=== PATIENT | male | born 1945 | race Caucasian/White ===

== ENCOUNTER 2020-02-20 14:48 | Observation (INO) | payer OTHER, MEDICARE ==
[2020-02-20] MEDS ORDERED: PROMETHAZINE INJ 25 MG/ML AMP ONE (15:42)
[2020-02-20 15:43] LABS: Absolute Lymphocytes (CBC) 1.3 K/uL (0.7-4.9); Basophils % 0.5 % (0-1.3); Hematocrit 42.9 % (39.6-49.0); Lymphocytes % 12.2 % (15.3-44.8); MPV 8.6 fL (7.6-11.3); RBC Red Blood Cell Count 4.91 M/uL (4.33-5.43)
[2020-02-20] MEDS ORDERED: FENTANYL CITR 100 MCG/2 ML ONE (15:43)
[2020-02-20] MEDS ORDERED: NA CHLORIDE 0.9% 1,000 ML ONE (15:43)
[2020-02-20 15:44] LABS: Protime INR 1.07
[2020-02-20 16:05] LABS: ALT/SGPT 27 U/L (12-78); AST/SGOT 25 U/L (15-37); Albumin 3.9 g/dL (3.4-5.0); Alkaline Phosphatase 78 U/L (45-117); BUN Blood Urea Nitrogen 20 mg/dL (7-18); Bicarbonate 26 mmol/L (21-32); Bilirubin Direct 0.1 mg/dL (0-0.2); Bilirubin Total 0.4 mg/dL (0.2-1.0); Glucose Level 123 mg/dL (74-106); Magnesium 2.3 mg/dL (1.8-2.4); NT PRO-BNP 63 pg/mL (<125); Potassium 3.6 mmol/L (3.5-5.1); Protein, Total 7.2 g/dL (6.4-8.2); Sodium Level 144 mmol/L (136-145); Troponin (Emerg Dept Use Only) < 0.02 ng/mL (0.0-0.045)
--- NOTE | 2020-02-20 17:19 | RAD REPORT ---
EXAM DESCRIPTION: CT - Abdomen Pelvis W Contrast - 02/20/2020 4:38 pm CLINICAL HISTORY: Abdominal pain COMPARISON: none. TECHNIQUE: Computed axial tomography of the abdomen pelvis was obtained. 100 cc Isovue-300 was admin istered intravenously. Oral contrast was not requested which limits evaluation of bowel. All CT scans are performed using dose optimization technique as appropriate and may include automated exposure control or mA/KV adjustment according to patient size. FINDINGS: Mild fatty liver. Multiple gallstones. Gallbladder wall is not thickened. Spleen, pancreas, adrenal appear unremarkable. 2 centimeter low to intermediate density mass extends off of left kidney. Hounsfield units 39 Small right renal parapelvic cyst Tiny left renal calculus. No hydronephrosis. Small parapelvic cysts. Normal appendix Diverticula stem from the colon without evidence of diverticulitis. Mild dilatation of jejunum and portion of the ileum. The distal ileum is decompressed Small inguinal hernias contain fat IMPRESSION: These findings may indicate a partial mechanical small bowel obstruction or enteritis A 2 centimeter left renal mass may represent benign complex cyst. Cystic neoplasm has a similar appea lisa. Nonemergent CT scan without IV contrast is recommended. This can be compared with the current examination to determine if there is abnormal enhancement to suggest neoplasm
--- NOTE | 2020-02-20 17:19 | RAD REPORT ---
EXAM DESCRIPTION: Vane Single View02/20/2020 3:33 pm CLINICAL HISTORY: Chest pain COMPARISON: none FINDINGS: The lungs appear clear of acute infiltrate. The heart is mildly enlarged IMPRESSION: No acute abnormalities displayed
--- NOTE | 2020-02-20 17:51 | ER ---
Nurse's Notes [facility] Name: Evens Freitas Sr Age: 74 yrs Sex: Male : 1945 Arrival Date: 02/20/2020 Time: 14:51 Bed 14 Private MD: Diagnosis: Hyperactive bowel sounds;Partial mechanical bowel obstruction Presentation: 02/19 15:00 Chief complaint: LUQ pain and nausea x 2 days. Pain is worse after meals. Last BM was hb today. Coronavirus screen: Patient denies fever greater than 100.4F, cough, shortness of breath, or difficulty breathing. Proceed with normal triage process. Ebola Screen: No symptoms or risks identified at this time. Initial Sepsis Screen: Does the patient meet any 2 criteria? No. Patient's initial sepsis screen is negative. Does the patient have a suspected source of infection? No. Patient's initial sepsis screen is negative. Risk Assessment: Do you want to hurt yourself or someone else? Patient reports no desire to harm self or others. 15:00 Method Of Arrival: Wheelchair hb 15:00 Acuity: REKHA 3 hb 15:58 Onset of symptoms was February 20, 2020. ll1 Historical: - Allergies: 15:02 No Known Allergies; hb - Home Meds: 15:02 candesartan 32 mg oral tab [Active]; aspirin 81 mg Oral chew 1 tab once daily [Active]; hb - PMHx: 15:02 Hyperlipidemia; hb - PSHx: 15:03 Hernia repair; hb 15:03 Knee - Right; hb - Immunization history:: Adult Immunizations up to date. - Social history:: Smoking status: Patient denies any tobacco usage or history of. Screenin:57 Abuse screen: Denies threats or abuse. Nutritional screening: No deficits noted. ll1 Tuberculosis screening: No symptoms or risk factors identified. Fall Risk IV access (20 points). Gait- Normal/Bed Rest/Wheelchair (0 pts) Mental Status- Oriented to own ability (0 pts). Total Prieto Fall Scale indicates No Risk (0-24 pts). Assessment: 15:54 General: Appears in no apparent distress. Behavior is calm, cooperative. Pain: Denies ll1 pain. Pain: Denies pain. Complains of pain in abdomen Pain Quality of pain is described as aching, Pain began 2-3 days ago. Is continuous. Neuro: No deficits noted. Cardiovascular: No deficits noted. Respiratory: No deficits noted. GI: Abdomen is round Bowel sounds present X 4 quads. Abd is soft Abdomen is tender to palpation in left upper quadrant Reports upper abdominal pain, cramping, nausea. : No deficits noted. 17:00 Reassessment: No changes from previously documented assessment. Patient and/or family ll1 updated on plan of care and expected duration. Pain level reassessed. Patient is alert, oriented x 3, equal unlabored respirations, skin warm/dry/pink. 18:00 Reassessment: No changes from previously documented assessment. Patient and/or family ll1 updated on plan of care and expected duration. Pain level reassessed. Patient is alert, oriented x 3, equal unlabored respirations, skin warm/dry/pink. 19:00 Reassessment: No changes from previously documented assessment. Patient and/or family ll1 updated on plan of care and expected duration. Pain level reassessed. Patient is alert, oriented x 3, equal unlabored respirations, skin warm/dry/pink. Vital Signs: 15:00 BP 189 / 80; Pulse 51; Resp 16; Temp 98.1; Pulse Ox 96% on R/A; Weight 130.18 kg; hb Height 5 ft. 11 in. (180.34 cm); Pain 10/10; 17:08 BP 161 / 75; Pulse 48; Resp 18; Pulse Ox 95% ; ll1 19:11 BP 152 / 87; Pulse 52; Resp 18; Pulse Ox 96% ; ll1 20:16 BP 152 / 67; Pulse 52; Resp 18; Pulse Ox 96% ; Pain 4/10; ll1 15:00 Body Mass Index 40.03 (130.18 kg, 180.34 cm) hb ED Course: 14:51 Patient arrived in ED. fj1 15:02 Triage completed. hb 15:03 Arm band placed on. hb 15:06 Agustina Craig FNP-C is PHCP. snw 15:06 Emre Rothman MD is Attending Physician. snw 15:34 XRAY Chest (1 view) In Process Unspecified. EDMS 15:34 Olegario Falcon, JOSE DANIEL is Primary Nurse. ll1 15:35 First set of blood cultures drawn. Initial lab(s) drawn, by me, sent to lab. kj1 15:35 Inserted saline lock: 22 gauge in left antecubital area, using aseptic technique. kj1 15:50 Second set of blood cultures drawn. kj1 15:58 Patient has correct armband on for positive identification. Bed in low position. Call [facility] light in reach. Side rails up X 1. 16:[address] via stretcher. nj 16:38 CT completed. Patient tolerated procedure well. Patient moved back from MD. nj 16:38 CT Abd/Pelvis - IV Contrast Only In Process Unspecified. EDMS 17:50 Ankit Hopper MD is Hospitalizing Provider. snw 19:23 PHCP role handed off by Agustina Craig FNP-C rv 19:23 Primary Nurse role handed off by Olegario Falcon, JOSE DANIEL rv 19:23 Olegario Falcon, RN is Primary Nurse. [facility] 20:13 No provider procedures requiring assistance completed. Patient admitted, IV remains in [facility] place. intact. Administered Medications: 15:53 Drug: NS 0.9% 1000 ml Route: IV; Rate: 125 ml/hr; Site: left antecubital; [facility] 19:14 Follow up: IV Status: Completed infusion rv 20:14 Follow up: IV Status: Infusion continued upon admission; IV Intake: 500ml [facility] 15:53 Drug: fentaNYL (PF) 50 mcg Route: IVP; Site: left antecubital; [facility] 17:08 Follow up: Response: No adverse reaction; Pain is decreased; RASS: Alert and Calm (0) [facility] 15:53 Drug: Phenergan 12.5 mg Route: IVP; Site: left antecubital; [facility] 17:07 Follow up: Response: No adverse reaction; RASS: Alert and Calm (0) [facility] 18:06 Drug: Cipro 400 mg Volume: 200 ml; Route: IVPB; Infused Over: 60 mins; Site: left ll1 antecubital; 19:09 Follow up: Response: No adverse reaction; RASS: Alert and Calm (0); IV Status: ll Completed infusion; IV Intake: 200ml 19:35 Drug: fentaNYL (PF) 50 mcg Route: IVP; Site: left antecubital; [facility] 20:04 Follow up: Response: No adverse reaction; Pain is decreased; RASS: Alert and Calm (0) ll1 Intake: 19:09 IV: 200ml; Total: 200ml. ll1 20:14 IV: 500ml; Total: 700ml. ll1 Outcome: 17:51 Decision to Hospitalize by Provider. snw 20:11 Admitted to Med/surg accompanied by tech, via wheelchair, room Room 201, Report called ll1 to [facility] 20:11 Condition: stable 20:11 Instructed on the need for admit. 20:17 Patient left the ED. ll1 Signatures: Dispatcher [employer] EDMS Agustina Craig, BIOMEDICAL SPECIALIST-C BIOMEDICAL SPECIALIST-Csnw Margaret Rios, RN RN Stephane Neff Ronaldo RN RN rv Lisa Myers kj1 Alex Jennings1 Olegario Falcon RN RN ll1 Corrections: (The following items were deleted from the chart) 15:03 15:02 PSHx: None; hb hb 19:24 19:17 No provider procedures requiring assistance completed. rv rv 19:24 19:17 IV discontinued, intact, bleeding controlled, No redness/swelling at site. rv Pressure dressing applied, rv 19:24 19:14 BP 110 / 59; Pulse 71bpm; Resp 17bpm; Pulse Ox 97% RA; Temp 98F; rv rv 19:24 19:17 Condition: good rv rv 19:24 19:17 Discharged to home ambulatory, rv rv 19:24 19:17 Discharge instructions given to patient, Instructed on discharge instructions, rv follow up and referral plans. medication usage, Demonstrated understanding of instructions, follow-up care, medications, Prescriptions given X 4, rv 19:24 19:18 Patient left the ED. rv rv
--- NOTE | 2020-02-20 17:52 | EDPHYS ---
Physician Documentation [facility] Name: Evens Freitas Sr Age: 74 yrs Sex: Male : 1945 Arrival Date: 02/20/2020 Time: 14:51 Bed 14 Private MD: ED Physician Emre Rothman HPI: 02/19 15:29 This 74 yrs old Male presents to ER via Wheelchair with complaints of snw Abdominal Pain. 15:29 The patient presents with abdominal pain in the left upper quadrant, in the left lower snw quadrant. Onset: The symptoms/episode began/occurred suddenly, 2 day(s) ago, and became persistent. The symptoms do not radiate. Associated signs and symptoms: Pertinent positives: nausea. The symptoms are described as constant, steady. Severity of pain: At its worst the pain was severe in the emergency department the pain is unchanged. The patient has not experienced similar symptoms in the past. The patient has not recently seen a physician. sees Dr. Castañeda, no abd surgeries. Historical: - Allergies: 15:02 No Known Allergies; hb - Home Meds: 15:02 candesartan 32 mg oral tab [Active]; aspirin 81 mg Oral chew 1 tab once daily [Active]; hb - PMHx: 15:02 Hyperlipidemia; hb - PSHx: 15:03 Hernia repair; hb 15:03 Knee - Right; hb - Immunization history:: Adult Immunizations up to date. - Social history:: Smoking status: Patient denies any tobacco usage or history of. ROS: 15:26 Constitutional: Negative for fever, chills, and weight loss, Eyes: Negative for injury, snw pain, redness, and discharge, ENT: Negative for injury, pain, and discharge, Neck: Negative for injury, pain, and swelling, Cardiovascular: Negative for chest pain, palpitations, and edema, Respiratory: Negative for shortness of breath, cough, wheezing, and pleuritic chest pain, Back: Negative for injury and pain, : Negative for injury, bleeding, discharge, and swelling, MS/Extremity: Negative for injury and deformity, Skin: Negative for injury, rash, and discoloration, Neuro: Negative for headache, weakness, numbness, tingling, and seizure, Psych: Negative for depression, anxiety, suicide ideation, homicidal ideation, and hallucinations. 15:26 Abdomen/GI: Positive for abdominal pain, nausea, abdominal distension. Exam: 15:13 Constitutional: This is a well developed, well nourished patient who is awake, alert, snw and in no acute distress. Head/Face: Normocephalic, atraumatic. Eyes: Pupils equal round and reactive to light, extra-ocular motions intact. Lids and lashes normal. Conjunctiva and sclera are non-icteric and not injected. Cornea within normal limits. Periorbital areas with no swelling, redness, or edema. ENT: Nares patent. No nasal discharge, no septal abnormalities noted. Tympanic membranes are normal and external auditory canals are clear. Oropharynx with no redness, swelling, or masses, exudates, or evidence of obstruction, uvula midline. Mucous membranes moist. Neck: Trachea midline, no thyromegaly or masses palpated, and no cervical lymphadenopathy. Supple, full range of motion without nuchal rigidity, or vertebral point tenderness. No Meningismus. Chest/axilla: Normal chest wall appearance and motion. Nontender with no deformity. No lesions are appreciated. Cardiovascular: Regular rate and rhythm with a normal S1 and S2. No gallops, murmurs, or rubs. Normal PMI, no JVD. No pulse deficits. Respiratory: Lungs have equal breath sounds bilaterally, clear to auscultation and percussion. No rales, rhonchi or wheezes noted. No increased work of breathing, no retractions or nasal flaring. Abdomen/GI: Soft, tender, with hyperactive bowel sounds. No distension or tympany. No guarding or rebound. left anterior upper and lower abdominal tenderness Back: No spinal tenderness. No costovertebral tenderness. Full range of motion. Skin: Warm, dry with normal turgor. Normal color with no rashes, no lesions, and no evidence of cellulitis. MS/ Extremity: Pulses equal, no cyanosis. Neurovascular intact. Full, normal range of motion. Neuro: Awake and alert, GCS 15, oriented to person, place, time, and situation. Cranial nerves II-XII grossly intact. Motor strength 5/5 in all extremities. Sensory grossly intact. Cerebellar exam normal. Normal gait. Psych: Awake, alert, with orientation to person, place and time. Behavior, mood, and affect are within normal limits. Vital Signs: 15:00 BP 189 / 80; Pulse 51; Resp 16; Temp 98.1; Pulse Ox 96% on R/A; Weight 130.18 kg; hb Height 5 ft. 11 in. (180.34 cm); Pain 10/10; 17:08 BP 161 / 75; Pulse 48; Resp 18; Pulse Ox 95% ; ll1 19:11 BP 152 / 87; Pulse 52; Resp 18; Pulse Ox 96% ; ll1 20:16 BP 152 / 67; Pulse 52; Resp 18; Pulse Ox 96% ; Pain 4/10; ll1 15:00 Body Mass Index 40.03 (130.18 kg, 180.34 cm) hb MDM: 15:06 Patient medically screened. snw 17:48 Data reviewed: vital signs, nurses notes, lab test result(s), radiologic studies. Data snw interpreted: Pulse oximetry: on room air is 95 %. Interpretation: acceptable. Counseling: I had a detailed discussion with the patient and/or guardian regarding: the historical points, exam findings, and any diagnostic results supporting the discharge/admit diagnosis, the presence of at least one elevated blood pressure reading (>120/80) during this emergency department visit, lab results, radiology results, the need for further work-up and treatment in the hospital. Physician consultation: Ankit Hopper MD was called at 17:49, was contacted at 17:49, regarding admission, to the medical/surgical unit. and will see patient shortly. 17:55 Physician consultation: Jb Ling MD was called at 17:56, was contacted at 17:56, snw regarding consult, and will see patient later today, would like medications started, Cipro. 02/19 15:13 Order name: Basic Metabolic Panel; Complete Time: 16:w 02/19 15:13 Order name: CBC with Diff; Complete Time: 15:56 w 02/19 15:13 Order name: LFT's; Complete Time: 16: w 02/19 15:13 Order name: Magnesium; Complete Time: 16:w 02/19 15:13 Order name: NT PRO-BNP; Complete Time: 16:07 [facility] 02/19 15:13 Order name: PT-INR; Complete Time: 15:56 [facility] 02/19 15:13 Order name: Troponin (emerg Dept Use Only); Complete Time: 16:07 [facility] 02/19 15:13 Order name: XRAY Chest (1 view); Complete Time: 17:29 [facility] 02/19 15:13 Order name: Blood Culture Adult (2) [facility] 02/19 19:12 Order name: CBC with Automated Diff [facility] 02/19 19:12 Order name: CBC with Automated Diff [facility] 02/19 19:13 Order name: Comprehensive Metabolic Panel [facility] 02/19 19:13 Order name: Comprehensive Metabolic Panel [facility] 02/19 19:29 Order name: Troponin I [facility] 02/19 15:13 Order name: EKG; Complete Time: 15:19 [facility] 02/19 15:13 Order name: Cardiac monitoring [facility] 02/19 15:13 Order name: EKG - Nurse/Tech; Complete Time: 19:02 [facility] 02/19 15:13 Order name: IV Saline Lock; Complete Time: 19:02 [facility] 02/19 15:13 Order name: Labs collected and sent; Complete Time: 19:02 [facility] 02/19 15:13 Order name: O2 Per Protocol; Complete Time: 19:02 [facility] 02/19 15:13 Order name: O2 Sat Monitoring; Complete Time: 19:02 [facility] 02/19 15:13 Order name: CT Abd/Pelvis - IV Contrast Only; Complete Time: 17:29 [facility] 02/19 19:12 Order name: CONS Pharmacy Consult [facility] 02/19 19:13 Order name: Abdomen 1 View (KUB) [facility] 02/19 19:13 Order name: Abdomen 1 View (KUB) [facility] Administered Medications: 15:53 Drug: NS 0.9% 1000 ml Route: IV; Rate: 125 ml/hr; Site: left antecubital; 1 19:14 Follow up: IV Status: Completed infusion rv 20:14 Follow up: IV Status: Infusion continued upon admission; IV Intake: 500ml ll1 15:53 Drug: fentaNYL (PF) 50 mcg Route: IVP; Site: left antecubital; ll1 17:08 Follow up: Response: No adverse reaction; Pain is decreased; RASS: Alert and Calm (0) ll1 15:53 Drug: Phenergan 12.5 mg Route: IVP; Site: left antecubital; ll1 17:07 Follow up: Response: No adverse reaction; RASS: Alert and Calm (0) ll1 18:06 Drug: Cipro 400 mg Volume: 200 ml; Route: IVPB; Infused Over: 60 mins; Site: left ll1 antecubital; 19:09 Follow up: Response: No adverse reaction; RASS: Alert and Calm (0); IV Status: ll1 Completed infusion; IV Intake: 200ml 19:35 Drug: fentaNYL (PF) 50 mcg Route: IVP; Site: left antecubital; ll1 20:04 Follow up: Response: No adverse reaction; Pain is decreased; RASS: Alert and Calm (0) ll1 Disposition: 02/20 10:11 Co-signature as Attending Physician, Emre Rothman MD. rn Disposition: 02/20/20 17:51 Hospitalization ordered by Ankit Hopper for Observation. Preliminary diagnosis are Hyperactive bowel sounds, Partial mechanical bowel obstruction. - Bed requested for Telemetry/MedSurg (observation). - Status is Observation. ll1 - Condition is Stable. - Problem is new. - Symptoms are unchanged. Signatures: Dispatcher [employer] EDMS Agustina Craig, GUERRERO-C APPARATUS LINEMAN-Csnw Emre Rothman MD MD rn Garcia, Cindy, RN RN cg Margaret Rios RN RN hb Silverio Noe RN RN rv Olegario Falcon RN RN 1 Corrections: (The following items were deleted from the chart) 02/19 15:03 15:02 PSHx: None; hb hb 19:18 17:51 Hospitalization Ordered by Ankit Hopper MD for Observation. Preliminary rv diagnosis is Hyperactive bowel sounds; Partial mechanical bowel obstruction. Bed requested for Telemetry/MedSurg (observation). Status is Observation. Condition is Stable. Problem is new. Symptoms are unchanged. snw 19:37 19:18 02/20/2020 17:51 Hospitalization Ordered by Ankit Hopper MD for Observation. cg Preliminary diagnosis is Hyperactive bowel sounds; Partial mechanical bowel obstruction. Bed requested for Telemetry/MedSurg (observation). Status is Observation. Condition is Stable. Problem is new. Symptoms are unchanged. rv 20:17 19:37 02/20/2020 17:51 Hospitalization Ordered by Ankit Hopper MD for Observation. ll1 Preliminary diagnosis is Hyperactive bowel sounds; Partial mechanical bowel obstruction. Bed requested for Telemetry/MedSurg (observation). Status is Observation. Condition is Stable. Problem is new. Symptoms are unchanged. cg
--- NOTE | 2020-02-20 18:02 | P.HP ---
Certification for Inpatient Patient admitted to: Observation With expected LOS: <2 Midnights Practitioner: I am a practitioner with admitting privileges, knowledge of patient current condition, hospital course, and medical plan of care. Services: Services provided to patient in accordance with Admission requirements found in Title 42 Section 412.3 of the Code of Federal Regulations Patient History Date of Service: 02/20/20 Reason for admission: Abdominal pain History of Present Illness: Mr. Freitas is 74 year old male with a history of hypertension who presented to the ER with complaints of left upper quadrant pain started 2 days ago. Pain has been progressive, associated with nausea without any emesis. Pain worsens with oral intake and improves with medications. Pain is 5/5, nonradiating and described as a cramping/ colicky pain. In an attempt to curb his pain, he took laxatives and then had diarrhea afterwards. He has continued to pass flatus. He denies any fever or chills. He is unable to associate pain onset with food intake. - Past Medical/Surgical History -: Hypertension -: Hernia Review of Systems 10-point ROS is otherwise unremarkable Gastrointestinal: Nausea, Abdominal Pain, Distention Physical Examination - Vital Signs Temperature: 98.1 F Blood Pressure: 189/80 Pulse: 51 Respirations: 16 Pulse Ox (%): 96 - Physical Exam General: Alert, In no apparent distress HEENT: Atraumatic, PERRLA, Mucous membr. moist/pink, EOMI, Sclerae nonicteric Neck: Supple, 2+ carotid pulse no bruit, No LAD, Without JVD or thyroid abnormality Respiratory: Clear to auscultation bilaterally, Normal air movement Cardiovascular: Normal S1 S2, Other (Bradycardia) Gastrointestinal: Normal bowel sounds, No rebound, No guarding, Distended, Tenderness (LUQ) Musculoskeletal: No tenderness Integumentary: No rashes Neurological: Normal gait, Normal speech, Normal strength at 5/5 x4 extr, Normal tone, Normal affect Lymphatics: No axilla or inguinal lymphadenopathy - Studies Laboratory Data (last 24 hrs) 02/20/20 15:28: PT 12.6 H, INR 1.07 02/20/20 15:28: WBC 11.0 H, Hgb 14.3, Hct 42.9, Plt Count 239 02/20/20 15:28: Sodium 144, Potassium 3.6, BUN 20 H, Creatinine 0.90, Glucose 123 H, Magnesium 2.3, Total Bilirubin 0.4, AST 25, ALT 27, Alkaline Phosphatase 78 Assessment and Plan - Advance Directives Does patient have a Living Will: No Does patient have a Durable POA for Healthcare: No - Code Status/Comfort Care Code Status Assessed: Yes Code Status: Full Code Physician Review Additional Text: Mr. Freitas is 74y/o male pw abdominal pain, cw partial SBO. #Partial small-bowel obstruction-possible mechanical versus enteritis. Patient with a prior history of hernia repair. -patient will be maintained on clear liquid diet, pain control and IV fluid. -initiated with antibiotics. Leukocytosis. -KUB in a.m. for further evaluation. #Bradycardia-EKG. Possible vasovagal. -cardiac monitoring. -avoid chronotropic agent. -echocardiogram. Troponin x1 negative, will trend. -Atropin at bedside. -will consider heavy duty diesel mechanic/EP consult. # hypertension-blood pressure is elevated, probably related to pain. -IV hydralazine p.r.n.. -will initiate oral antihypertensive once appropriate. # obesity-weight loss strongly advised. # hyperglycemia-denies any prior history of diabetes mellitus. Check hemoglobin A1c to rule out. DVT prophylaxis-Lovenox Patient is full code Disposition-observation admission.
[2020-02-20] MEDS ORDERED: CIPROFLOXACIN 400mg IV 400 MG/200 ML BAG IV ONE (18:05)
[2020-02-20] MEDS ORDERED: MORPHINE 2 MG/ML SYR IV PRN (19:08)
[2020-02-20] MEDS ORDERED: ONDANSETRON 4 MG/2 ML VIAL IV PRN (19:08)
[2020-02-20] MEDS ORDERED: HYDRALAZINE HCL 20 MG/ML VIAL IV PRN (19:10)
[2020-02-20 20:39] VITALS: BMI 40.6
[2020-02-20] MEDS: NA CHLORIDE 0.9% 1,000 ML IV SCH (20:53)
[2020-02-21] MEDS: metroNIDAZOLE 500 MG TABLET PO SCH ×4 (00:15→18:51)
[2020-02-21] MEDS: NA CHLORIDE 0.9% 1,000 ML IV SCH ×3 (00:16→16:28)
[2020-02-21 05:45] LABS: Hematocrit 39.9 % (39.6-49.0); MPV 8.5 fL (7.6-11.3); RBC Red Blood Cell Count 4.53 M/uL (4.33-5.43)
[2020-02-21 05:46] LABS: Absolute Lymphocytes (CBC) 1.8 K/uL (0.7-4.9); Basophils % 0.5 % (0-1.3)
[2020-02-21 06:00] LABS: ALT/SGPT 23 U/L (12-78); AST/SGOT 21 U/L (15-37); Albumin 3.3 g/dL (3.4-5.0); Alkaline Phosphatase 66 U/L (45-117); BUN Blood Urea Nitrogen 16 mg/dL (7-18); Bicarbonate 26 mmol/L (21-32); Bilirubin Total 0.9 mg/dL (0.2-1.0); Glucose Level 100 mg/dL (74-106); Potassium 3.7 mmol/L (3.5-5.1); Protein, Total 6.5 g/dL (6.4-8.2); Sodium Level 141 mmol/L (136-145)
--- NOTE | 2020-02-21 06:00 | RAD REPORT ---
EXAM DESCRIPTION: RAD - Abdomen 1 View (KUB) - 02/21/2020 5:52 am CLINICAL HISTORY: Abdomen pain. FINDINGS: Mild dilatation of small bowel unchanged from the prior CAT scan. Air is present within po rtions of the colon. This probably represents an enteritis. However, a partial small bowel obstructio n can also have similar appearance
[2020-02-21] MEDS: CIPROFLOXACIN 400mg IV 400 MG/200 ML BAG IV SCH ×2 (08:09→21:30)
[2020-02-21] MEDS ORDERED: hydroCHLOROthiazide 25 MG TAB PO SCH (09:00)
[2020-02-21] MEDS ORDERED: VALSARTAN 160 MG TAB PO SCH (09:00)
[2020-02-21] MEDS: VALSARTAN 160 MG TAB PO SCH (09:00)
--- NOTE | 2020-02-21 10:58 | EKG ---
Test Date: 2020-02-20 Test Time: 17:16:41 Plc Controls Engineer: DOTTIE MEASUREMENT RESULTS: Intervals: Rate: 44 UT: 182 QRSD: 94 QT: 412 QTc: 352 Jack: P: 29 UT: 182 QRS: -3 T: -10 INTERPRETIVE STATEMENTS: Marked sinus bradycardia Inferior infarct, age undetermined Abnormal ECG Compared to ECG 10/18/2006 08:49:21 Myocardial infarct finding now present Electronically Signed On 02-21-20 10:56:14 CDT by Abner Cedillo
--- NOTE | 2020-02-21 12:08 | P.PN ---
Subjective Date of Service: 02/21/20 Chief Complaint: Abdominal pain Subjective: Improving Pain is improving. He is however concerned about having gallstones due to family history of cholecystitis. Physical Examination - Vital Signs Temperature: 97 F Blood Pressure: 146/67 Pulse: 48 Respirations: 20 Pulse Ox (%): 95 - Physical Exam General: Alert, In no apparent distress HEENT: Atraumatic, PERRLA, EOMI Neck: Supple, JVD not distended Respiratory: Clear to auscultation bilaterally, Normal air movement Cardiovascular: Normal S1 S2, Irregular heart rate/rhythm Gastrointestinal: Normal bowel sounds, No rebound, No guarding, Distended, Tenderness (LUQ. No Tenderness on RUQ and murphys is neg.) Musculoskeletal: No tenderness Integumentary: No rashes Neurological: Normal speech, Normal tone, Normal affect Lymphatics: No axilla or inguinal lymphadenopathy - Studies Laboratory Data (last 24 hrs) 02/20/20 15:28: PT 12.6 H, INR 1.07 02/20/20 15:28: WBC 11.0 H, Hgb 14.3, Hct 42.9, Plt Count 239 02/20/20 15:28: Sodium 144, Potassium 3.6, BUN 20 H, Creatinine 0.90, Glucose 123 H, Magnesium 2.3, Total Bilirubin 0.4, AST 25, ALT 27, Alkaline Phosphatase 78 Assessment & Plan Physician Review Additional Text: Mr. Freitas is 74y/o male pw abdominal pain, cw partial SBO. #Partial small-bowel obstruction-possible mechanical versus enteritis. Patient with a prior history of hernia repair. -Pain control and IV fluid. Tolerating clear liquid diet, will attempt full liquid diet. -continue antibiotics. Leukocytosis resolved -KUB with persistent finding; however patient is clinicaly improved. Had 3 BM overnight. -HIDA scan ordered #Renal mass- 2 cm L renal complex mass. Incidental finding on CT - cannot rule out cyst; however will consult urologist. #Bradycardia-EKG. Asymptomatic. cardiac monitoring. -avoid chronotropic agent. -echocardiogram. serial troponin negative -consult cardio for recommendation. #Hypertension-blood pressure is elevated, probably related to pain. -IV hydralazine p.r.n. -resumed oral antihypertensive. # obesity-weight loss strongly advised. # hyperglycemia-denies any prior history of diabetes mellitus. ruled out diabetes. DVT prophylaxis-Lovenox Patient is full code Disposition-pending clinical improvement
--- NOTE | 2020-02-21 12:48 | ECHO ---
HEIGHT: 5 ft 11 in WEIGHT: 291 lb 0 oz DATE OF STUDY: 02/21/[address]: Ankit Hopper 2-DIMENSIONAL: YES M.MODE: YES DOPPLER: YES COLOR FLOW: YES TDS: NO PORTABLE: NO DEFINITY: NO BUBBLE STUDY: NO DIAGNOSIS: BRADYCARDIA CARDIAC HISTORY: CATHERIZATION: NO SURGERY: NO PROSTHETIC VALVE: NO PACEMAKER: NO MEASUREMENTS (cm) DIASTOLIC (NORMALS) SYSTOLIC (NORMALS) IVSd 1.3 (0.6-1.2) LA Diam 3.6 (1.9-4.0) LVEF 76% LVIDd 4.5 (3.5-5.7) LVIDs 2.5 (2.0-3.5) %FS 45% LVPWd 1.3 (0.6-1.2) Ao Diam 3.1 (2.0-3.7) 2 DIMENSIONAL ASSESSMENT: RIGHT ATRIUM: NORMAL LEFT ATRIUM: NORMAL RIGHT VENTRICLE: NORMAL LEFT VENTRICLE: LEFT VENTRICULAR HYPERTROPHY TRICUSPID VALVE: NORMAL MITRAL VALVE: NORMAL PULMONIC VALVE: NORMAL AORTIC VALVE: NORMAL PERICARDIAL EFFUSION: NONE AORTIC ROOT: NORMAL LEFT VENTRICULAR WALL MOTION: NORMAL. DOPPLER/COLOR FLOW: NORMAL. COMMENTS: MILD LEFT VENTRICULAR HYPERTROPHY. NORMAL EJECTION FRACTION. NO WALL MOTION ABNORMALITY. NO EFFUSION. TECHNOLOGIST: WILLIAMS EM
--- NOTE | 2020-02-21 15:11 | RAD REPORT ---
EXAM DESCRIPTION: NM - Hepatobiliary System W/ Ph - 02/21/2020 3:03 pm CLINICAL HISTORY: multiple Gallstone Abdominal pain COMPARISON: No comparisons TECHNIQUE: The patient was administered 6.5 mCi Tc99m Choletec. Imaging of the right upper quadrant was performed initially for up to 60 minutes. Gallbladder ejection fraction determination was then performed utilizing synthetic 2.6 mgm CCK over a slow 30 minute infusion. FINDINGS: Normal hepatic uptake and excretion with appropriate clearance of background blood pool ac tivity. Normal visualization of biliary and small bowel activity. Gallbladder visualizes within normal time limits. The calculated ejection fraction is 68% (normal gre ater than 35%). 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 No delay in visualization of the gallb ladder, biliary tree, or duodenum. Ejection fraction is 68% (normal greater than 35%). Subjective patient pain assessment as detailed above.
--- NOTE | 2020-02-21 21:36 | CON ---
Reason For Consult: Partial small-bowel obstruction. History Of Present Illness: This is a case of a 74-year-old male who comes to us complaining of abdo geoff pain and distention for about 2 days in duration. He denies any trauma. Denies any dysuria, h ematuria, hematochezia, or melena. He states his pain is crampy in nature, mainly on the lower abdom en. He denies prior episode. Once again denies any recent traveling out of the country and denies a [place] family member sick at home. Allergies: NONE. Medications: Reviewed including aspirin. Medical Problems: Hyperlipidemia. Past Surgical History: Hernia repair and knee surgery. Review of Systems: 10 points otherwise unremarkable. Physical Examination: General: Patient is awake, alert. HEENT: Pupils are equal and reactive, anicteric. Neck: Supple. Chest: Clear. Abdomen: Softly distended. No guarding or rebound. No peritoneal signs. Mild tenderness generaliz ed, mainly in the lower abdomen. Rectal: Deferred. Extremities: Good capillary refill. Laboratory Data: Blood work shows a WBC count of 11 with hemoglobin of 14, platelets of 239. INR is 1.07 and chloride is 111. A CAT scan of abdomen and pelvis reviewed by Dr. Maher shows a partial mechanical small-bowel obstruction versus enteritis. A HIDA scan shows ejection fraction of 68% on the gallbladder, and KUB from this morning shows mild dilatation of the small bowel, although apparen tly maybe it is partial or maybe just enteritis. Assessment: This is a 74-year-old patient who came today for 2 days with abdominal pain. Today, he feels better. No nausea, no vomiting today. Abdomen is soft. He is starting to eat a clear liquid diet. He has bowel movement too. Plan: From a surgical standpoint, no plan to take this patient to surgery today. We will give a tri al of diet. Patient is passing gas and also had a bowel movement. If he improves clinically, then jennifer olivares can be discharged home after he tolerates a normal diet and then follow up in our office and the [place] stroenterologist. If he does not tolerate diet, then we will keep him n.p.o. We might have to do sm all-bowel series and corroborate if he has small-bowel obstruction. He was advised the importance of talking to his repairer and checker again to see the proper timing of colonoscopy. VENESSA/UBALDO Voice ID: [id number] Report ID: [id number]
[2020-02-22] MEDS: metroNIDAZOLE 500 MG TABLET PO SCH ×3 (00:18→12:00)
[2020-02-22] MEDS ORDERED: TEMAZEPAM 15 MG CAP PO PRN (01:06)
[2020-02-22 02:30] VITALS: O2SAT 96
[2020-02-22] MEDS: NA CHLORIDE 0.9% 1,000 ML IV SCH (03:07)
[2020-02-22 07:02] LABS: Absolute Lymphocytes (CBC) 1.8 K/uL (0.7-4.9); Basophils % 0.8 % (0-1.3); Hematocrit 38.9 % (39.6-49.0); Lymphocytes % 24.4 % (15.3-44.8); MPV 9.1 fL (7.6-11.3); RBC Red Blood Cell Count 4.39 M/uL (4.33-5.43)
[2020-02-22 07:31] LABS: Potassium 3.5 mmol/L (3.5-5.1)
[2020-02-22] MEDS: VALSARTAN 160 MG TAB PO SCH (09:00)
--- NOTE | 2020-02-22 10:05 | EKG ---
Test Date: 2020-02-21 Test Time: 11:47:06 Fleet Manager/Dispatch: KIERRA MEASUREMENT RESULTS: Intervals: Rate: 46 MI: 168 QRSD: 108 QT: 464 QTc: 406 [place]: P: 18 MI: 168 QRS: 36 T: 32 INTERPRETIVE STATEMENTS: Marked sinus bradycardia Abnormal ECG Compared to ECG 02/20/2020 17:16:41 Myocardial infarct finding no longer present Electronically Signed On 02-22-20 10:03:01 CDT by Abner Cedillo
--- NOTE | 2020-02-22 12:42 | RAD REPORT ---
EXAM DESCRIPTION: RAD - Small Bowel Series - 02/22/2020 12:33 pm CLINICAL HISTORY: SBO COMPARISON: Abdomen Pelvis W Contrast dated 02/20/2020 FINDINGS: Watch Crystal Cutter film shows a nonspecific bowel gas pattern. No obstruction or free air. No suspiciou s calcifications. Gastric size and mucosal fold pattern are normal. No delay in transit of contrast into the small jamari l. Small bowel is normal in diameter with no mucosal fold thickening. No intrinsic or extrinsic mass identifiable. Patient has several small duodenal diverticula and several moderate to large jejunum di verticulae. Non serosa suspicious characteristics. Terminal ileum has a normal in appearance. Transit time to the colon is 1.5 hours. IMPRESSION: No significant small bowel finding. Numerous duodenal and jejunal diverticula noted. Transit time to the colon was 1.5 hours.
--- NOTE | 2020-02-22 12:50 | P.DS ---
Admission Date: 02/20/20 Discharge Date: 02/22/20 Disposition: ROUTINE DISCHARGE Discharge Condition: GOOD Reason for Admission: Abdominal pain Consultations: Superintendent Renting Managing General surgeon - Problems (1) Partial small bowel obstruction Current Visit: Yes Status: Acute (2) Enteritis Current Visit: Yes Status: Acute (3) Sinus bradycardia Current Visit: Yes Status: Acute (4) Renal mass Current Visit: Yes Status: Acute (5) Hypertension Current Visit: Yes Status: Acute Hospital Course: Mr. Freitas is 74 year old male with history of hypertension who presented to the ER with complaints of left upper quadrant pain started 2 days prior to presentation. Pain was progressive, associated with nausea without emesis. Pain was worsened with oral intake. Initial CT scan of the abdomen was consistent with partial small-bowel obstruction versus enteritis. He was initiated on oral antibiotics, evaluated by general surgeon and along with supportive treatment with IV fluid, anti emetics and pain control. Small-bowel series was completed and unremarkable. He tolerated oral intake and will be discharged on oral antibiotics. Patient's initial CT scan showed a left renal mass and further studies has been recommended. Patient will follow up with urologist as his PCP and/or urologist for further workup. He was noted to have sinus bradycardia on presentation, heart with as low as 40s. Patient was asymptomatic. He was placed on telemetry and no significant findings of arrhythmia. He was evaluated by a security orderly and echocardiogram followed which was also unremarkable. TSH was within normal limits, willneed to be checked again outpatient. He remained hemodynamically stable and discharged home. Vital Signs/Physical Exam: Temp Pulse Resp BP Pulse Ox 97.8 F 46 L 18 131/60 94 02/22/20 08:00 02/22/20 08:00 02/22/20 08:00 02/22/20 08:00 02/22/20 08:00 General: Alert, In no apparent distress HEENT: Atraumatic, PERRLA, EOMI Neck: Supple, JVD not distended Respiratory: Clear to auscultation bilaterally, Normal air movement Cardiovascular: Regular rate/rhythm, Normal S1 S2 Gastrointestinal: Normal bowel sounds, No tenderness Musculoskeletal: No tenderness Integumentary: No rashes Neurological: Normal speech, Normal tone, Normal affect Lymphatics: No axilla or inguinal lymphadenopathy Laboratory Data at Discharge: WBC 7.4 K/uL (4.3-10.9) D 03/26/20 05:22 Hgb 12.9 g/dL (13.6-17.9) L 02/22/20 05:22 Hct 38.9 % (39.6-49.0) L 02/22/20 05:22 Plt Count 197 K/uL (152-406) 02/22/20 05:22 PT 12.6 SECONDS (9.5-12.5) H 02/20/20 15:28 INR 1.07 02/20/20 15:28 Sodium 142 mmol/L (136-145) 02/22/20 05:22 Potassium 3.5 mmol/L (3.5-5.1) 02/22/20 05:22 BUN 10 mg/dL (7-18) 02/22/20 05:22 Creatinine 0.86 mg/dL (0.55-1.3) 02/22/20 05:22 Glucose 89 mg/dL (74-106) 02/22/20 05:22 Magnesium 2.3 mg/dL (1.8-2.4) 02/20/20 15:28 Total Bilirubin 0.9 mg/dL (0.2-1.0) 02/21/20 05:30 AST 21 U/L (15-37) 02/21/20 05:30 ALT 23 U/L (12-78) 02/21/20 05:30 Alkaline Phosphatase 66 U/L (45-117) 02/21/20 05:30 Troponin I < 0.02 ng/mL (0.0-0.045) 02/20/20 22:50 Home Medications: Aspirin Chewable [Aspirin Chewable*] 1 tab PO DAILY 02/20/20 Candesartan/Hydrochlorothiazid [Atacand Hct 32-25 mg Tablet] 1 tab PO DAILY Ciprofloxacin HCl [Cipro 500 MG Tablet] 500 mg PO BID 5 Days #10 tab 02/22/20 metroNIDAZOLE [Flagyl*] 500 mg PO Q8H 5 Days #15 tablet 02/22/20 New Medications: Ciprofloxacin HCl [Cipro 500 MG Tablet] 500 mg PO BID 5 Days #10 tab metroNIDAZOLE [Flagyl*] 500 mg PO Q8H 5 Days #15 tablet Patient Discharge Instructions: Follow up with urologist for renal mass. Follow up with security orderly for bradycardia. COmplete antibiotics as written Diet: Low sodium Activity: Ad mirza Followup: Michael San MD [Primary Care Provider] - 1-2 Weeks Lissette Nunez MD [ACTIVE - CAN ADMIT] - 1-2 Weeks Abner Cedillo MD [ACTIVE - CAN ADMIT] - 1-2 Weeks
--- NOTE | 2020-02-22 13:17 | CON ---
Date of Progress Note: 02/21/[address] Hopper on 02/20/2020 for bowel obstruction. I was consulted because of milena tavarez. Patient was seen on 02/21/2020. Mr. Freitas is a 74-year-old male with . He was admitted for small bowel obstruction, which has been treated conservatively. He has absolutely no cardiac symptoms. Denied PND, orthopnea, peda l edema, palpitations, or syncope. Denied any dizziness or excessive fatigue. Denies any shortness of breath. Has had some abdominal cramping and nausea secondary to small bowel obstruction. He was found to have a heart rate in the 40s. Apparently, he said this has been his case for quite some janet e. 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 Past Medical History: Otherwise negative. Allergies: NONE. Review of Systems: Negative. Social History: Negative. Medications: Listed earlier. Physical Examination: Vital Signs: Stable. Afebrile. HEENT: Exam is negative. Neck: Supple with no bruit. Chest: Clear. Cardiac: Exam revealed bradycardia. No murmurs, gallops, or rubs. Abdomen: Positive for small bowel obstruction. Extremities: No clubbing, cyanosis, or edema. Diagnostic Data: EKG showed left ventricular hypertrophy with bradycardia. Rest of his blood work was normal. Impression And Plan: Chronic sinus bradycardia, that is asymptomatic. No need to do any further car diac workup. His echocardiogram is fairly unremarkable except for marked left ventricular hypertroph y. I would suggest getting a TSH on him. No further treatment is indicated for his bradycardia at t his point. His blood pressure is well controlled and the small bowel obstruction is even treated con servatively. I will be around for questions if the need arises. TYREE/UBALDO Voice ID: [id number] Report ID: [id number]
[2020-02-22 14:56] VITALS: BP 187/77; TEMP 97.6
--- NOTE | 2020-02-22 17:02 | PN ---
Date of Progress Note: 02/22/2020 Diagnosis: Small-bowel obstruction. Subjective: Patient is doing better, passing flatus, having bowel movement. Review of Systems: 10 points otherwise unremarkable. Objective: Chest: Clear. Abdomen: Soft and depressible. Patient states no tenderness today, he feels better. Laboratory Data: Blood work shows a WBC count of 7.4. The small-bowel series shows no significant s mall bowel findings. Plan: From the surgical standpoint, we have no plans to take this patient to surgery. We discussed the case with the primary doctor. If he is tolerating diet, he may be discharged home with the condi tion that he has to follow up as an outpatient with the state appellate clerk because he may need some w orkup to trying to find etiology of his pain and see what happened with his bowel and why he became p artially obstructed at one point. He understands the importance of colonoscopies and upper endoscopi es by the state appellate clerk. He is going to follow with them. We are in national emergency. He wa nts to go home. So, we understand that part. He also is advised to follow with my office in a week from now or when this national emergency allows him to be available to come back. VENESSA/UBALDO Voice ID: [id number] Report ID: [id number]
== END 2020-02-22 15:16 | disposition home or self-care (01) ==
LOC: ER 14:48 → ERHOLD 19:08 → 2ND 20:11
PROVIDERS: ADMIT Hospitalist; ATTEND Hospitalist
DX: K56.609 Unspecified intestinal obstruction, unspecified as to partial versus complete obstruction (principal); K52.9 Noninfective gastroenteritis and colitis, unspecified; N28.89 Other specified disorders of kidney and ureter; I11.9 Hypertensive heart disease without heart failure; K57.30 Diverticulosis of large intestine without perforation or abscess without bleeding; K76.0 Fatty (change of) liver, not elsewhere classified; K80.80 Other cholelithiasis without obstruction; N20.0 Calculus of kidney; N28.1 Cyst of kidney, acquired; K40.90 Unilateral inguinal hernia, without obstruction or gangrene, not specified as recurrent; R00.1 Bradycardia, unspecified; R73.9 Hyperglycemia, unspecified; E78.5 Hyperlipidemia, unspecified; E66.9 Obesity, unspecified; Z68.41 Body mass index [BMI] 40.0-44.9, adult; Z79.82 Long term (current) use of aspirin; Z79.899 Other long term (current) drug therapy
CPT/HCPCS: 96365; 96361; 93005 ×2; 93306; 87040 ×2; 85025 ×3; 80048 ×2; 36415 ×3; 83735; 85610; 80076; 83605; 84443; 83036; 84484 ×2; 80053; 84145; 83880; 74177; 74018; 74250; 71045; 78227; 96375; 99285; Q9967; J2550; J3010; J2270; J7030 ×4; J2405; J0744 ×3; J2805; A9537; G0378 ×4

== ENCOUNTER 2022-03-13 11:09 | Emergency (ER) | payer OTHER, MEDICARE ==
--- OUTSIDE RECORDS SUMMARY | 2022-03-13 11:12 | XMS REPORT | Continuity of Care Document ---
:1945 Author Organization [facility] t Address [address] [place] [address] Care Team Providers Name Role Phone [phone] Primary Care Physician Unavailable MAGGY Attending Clinician Unavailable NELY Attending Clinician Unavailable Nely UMANZOR Attending Clinician Unavailable CHERIE Attending Clinician Unavailable Payers Payer Name Policy Type Policy Number Effective Date Expiration Date S nathan MEDICARE PART A [id number] 2010 AND B 00:00:00 [employer] [id number] 2019 ONLY 00:00:00 Problems This patient has no known problems. Allergies, Adverse Reactions, Alerts This patient has no known allergies or adverse reactions. Family History Family Member Diagnosis Comments Start Date Stop Date Source Natural brother Melanoma MD Conrad on Natural father Brain cancer Garrett son Natural mother Breast cancer MD Delvalle rson Natural sister Pancreatic cancer MD Garcia Social History Social Habit Start Date Stop Date Quantity Comments Source Sex Ass[birth year] M MD Garcia 00:00:00 00:00:00 Smoking Status Start Date Stop Date Source Ex-smoker 2020-05-08 00:00:00 2020-05-08 00:00:00 Garrett son Medications Ordered Filled Start Stop Current Ordering Indication Dosage Frequency Signature Comments Components Source Medication Medication Date Date Medication? Clinician (SIG) Name Name candesartan Yes 1{tbl} Take 1 MD -hydrochlor 1-01 tablet by And erso othiazide 00:00: mouth n (ATACAND 00 daily. HCT) 32-12.5 mg per tablet Vital Signs Vital Name Observation Time Observation Value Comments Source Systolic blood pressure 2021-11-07 17:06:21 178 mm[Hg] MD Garcia Diastolic blood pressure 2021-11-07 17:06:21 86 mm[Hg] MD Garcia Heart rate 2021-11-07 17:06:21 51 /min MD Garrett westfall Respiratory rate 2021-11-07 17:06:21 18 /min MD Binu tavares Oxygen saturation in 2021-11-07 17:06:21 97 /min MD Garcia Arterial blood by Pulse oximetry Procedures Procedure Date / Time Performed Performing Clinician [facility] e CT ABDOMEN W WO CONTRAST 2021-11-07 17:01:25 Jorgito Mckay BASIC METABOLIC PANEL, CALCIUM 2021-11-07 14:26:00 Heron Mckay MD TOTAL GLUCOSE LEVEL 2021-11-07 14:26:00 Jorgito Mckay MD BLOOD UREA NITROGEN 2021-11-07 14:26:00 Jorgito Mckay MD And ava ELECTROLYTE PANEL 2021-11-07 14:26:00 Jorgito Mckay MD SERUM CREATININE 2021-11-07 14:26:00 Jorgito Mckay MD on .GLOMERULAR FILTRATION RATE 2021-11-07 14:26:00 Karl Mckay MD CALCIUM LEVEL TOTAL 2021-11-07 14:26:00 Jorgito Mckay MD And ava Encounters Start End Encounter Admission Attending Care Care Encounter Source Date/Time Date/Time Type Type Clinicians Facility Department ID 2022-02-25 2022-02-[address] [facility] [id number] [place] 00:00:00 00:00:00 HERIBERTO, [address] 2022-02-06 2022-02-06 Outpatient [facility] [id number] [place] 00:00:00 00:00:[address] 2022-02-03 2022-02-[address] [facility] [id number] [place] 00:00:00 00:00:00 HERIBERTO, [address] 2022-01-27 2022-01-[address] [facility] [id number] [place] 00:00:00 00:00:00 HERIBERTO, [address] 2022-01-13 2022-01-13 Outpatient [facility] [id number] [place] 00:00:00 00:00:00 OVAL, [address] 2021-11-13 2021-11-13 Outpatient NIXON MCKAY MDA MDA [id number] MD 21:15:13 21:15:13 JORGITO hollidayso n 2021-11-07 2021-11-07 Outpatient NIXON MCKAY MDA MDA [id number] MD 08:33:51 08:33:51 JORGITO hollidayso n 2021-11-07 2021-11-07 Outpatient NIXON MCKAY, MDA MDA [id number] [place] 08:25:36 08:27:15 JORGITO hollidayso n 2021-08-27 2021-08-27 Outpatient [facility] [id number] [place] 00:00:00 00:00:[address] 2021-02-12 2021-02-12 Outpatient CHERIE, [facility] [id number] [place] 00:00:00 00:00:00 JORGITO [address] 2021-01-22 2021-01-22 Outpatient [facility] [id number] [place] 00:00:00 00:00:[address] 2020-11-13 2020-11-13 Outpatient NIXON MCKAY, MDA MDA [id number] 10:29:52 10:29:52 [place]O h[place]idayso [place] 2020-11-08 2020-11-08 Outpatient NIXON MCKAY MDA MDA [id number] 10:02:07 10:02:07 JORGITO niño 2020-11-08 2020-11-08 Outpatient NIXON MCKAY, MDA MDA [id number] 10:00:02 10:00:02 J[place]ITO hollidayso [place] 2020-11-08 2020-11-08 Outpatient NIXON MCKAY, MDA MDA [id number] 09:36:19 09:52:45 JORGITO niño Results This patient has no known results.
--- OUTSIDE RECORDS SUMMARY | 2022-03-13 11:12 | XMS REPORT | Clinical Summary ---
:1945 Author Organization [facility] MD Tucker [facility] Address [address] [place] [address] Care Team Providers Name Role Phone MD Audie Primary Care Provider Unavailable Allergies No known active allergies Medications Medication Sig Dispensed Refills Start Date End Date Status candesartan-hydrochlor Take 1 tablet by 0 11/29/2009 Active othiazide (ATACAND mouth daily. HCT) 32-12.5 mg per tablet Active Problems Not on file Encounters Date Type Specialty Care Team Description 11/12/2021 Telemedicine Urology Randal Bronson Renal mas s (Primary Dx); Complex renal c yst 11/07/2021 Ancillary Procedure Radiology Randal Bronson Co mplex renal cyst 11/07/2021 Travel after 03/13/2021 Surgical History Surgery Date Site/Laterality Comments UMBILICAL HERNIA REPAIR Medical History Medical History Date Comments Hypertension Family History Medical History Relation Name Comments Melanoma Brother Brain cancer Father Breast cancer Mother Pancreatic cancer Sister Relation Name Status Comments Brother Father Mother Sister Social History Tobacco Use Types Packs/Day Years Used Date Former Smoker Sex Assigned at Date Recorded Male 04/28/2020 5:15 PM CDT Job Start Date Occupation Industry Not on file Not on file Not on file Obstetrics History Last Filed Vital Signs Vital Sign Reading Time Taken Comments Blood Pressure 178/86 11/07/2021 11:06 AM [employer] Pulse 51 11/07/2021 11:06 AM [employer] Temperature - - Respiratory Rate 18 11/07/2021 11:06 AM [employer] Oxygen Saturation 97% 11/07/2021 11:06 AM [employer] Inhaled Oxygen Concentration - - Weight - - Height - - Body Mass Index - - Plan of Treatment Date Type Specialty Care Team Description 11/10/2022 Lab Lab Dorothy Preston , FLOOR SANDING MACHINE OPERATOR [address] [place], [place] [address] (Wo rk) 11/10/2022 Ancillary Procedure Radiology Dorothy Preston, FLOOR SANDING MACHINE OPERATOR [address] [place], [place] [address] (Wo rk) 11/11/2022 Telemedicine Urology Dorothy Preston , FLOOR SANDING MACHINE OPERATOR [address] [place], [place] [address] (Wo rk) Health Maintenance Due Date Last Done Comments COVID-19 Vaccination Completed 08/27/2021, 02/12/2021, Procedures Procedure Name Priority Date/Time Associated Comments Diagnosis CT ABDOMEN W WO Routine 11/07/2021 11:01 Complex renal cyst Re sults for this CONTRAST AM [employer] procedure are i n the results section. CALCIUM LEVEL TOTAL Routine 11/07/2021 8:26 Complex renal cys t Results for this AM [employer]ER procedure are i n the results section. .GLOMERULAR Routine 11/07/2021 8:26 Complex renal cyst Resul ts for this FILTRATION RATE AM [employer] procedure ar e in the results section. SERUM CREATININE Routine 11/07/2021 8:26 Complex renal cyst R esults for this AM [employer]ER procedure are i n the results section. ELECTROLYTE PANEL Routine 11/07/2021 8:26 Complex renal cyst Results for this AM [employer] procedure are i n the results section. BLOOD UREA NITROGEN Routine 11/07/2021 8:26 Complex renal cys t Results for this AM [employer] procedure are i n the results section. GLUCOSE LEVEL Routine 11/07/2021 8:26 Complex renal cyst Resu lts for this AM [employer] procedure are i n the results section. BASIC METABOLIC Routine 11/07/2021 8:26 Complex renal cyst PANEL, CALCIUM TOTAL AM [employer] DRESSER after 03/13/[address] Abdomen with and without Contrast (11/07/2021 11:01 AM WARP DRESSER) Anatomical Region Laterality Modality Abdomen Computed Tomography Specimen Impressions [id number] - 11/07/2021 10:46 PM WARP DRESSER Stable bilateral renal cysts some of which are mildly hyperdense in keeping with proteinaceous/hemorrhagic cysts. Cholelithiasis. Narrative [id number] - 11/07/2021 10:46 PM WARP DRESSER FULL RESULT: Examination: CT ABDOMEN W WO CONTRAST, 1 01/08/2021 11:01 AM Clinical History: Complex renal cyst Indication: renal cyst Comparison: CT dated 11/08/2020, outside facility MRI dated 03/07/2020 Technique: CT of the abdomen was perform ed with and without intravenous contrast. Findings: No suspicious pulmonary nodule in the vi sualized lung bases. No suspicious liver lesion is seen. Chol elithiasis noted. The spleen, pancreas and adrenal glands are unremarkable. Stable 2.5 cm mildly hyperdense cyst wit hout enhancement arising from the lower pole left kidney posteriorly on image 152 series 12. There is a 14 mm hyperdense right renal cyst on image 47 of series 12 , stable. Small hyperdense cyst in the u pper pole of the right kidney is stable seen on image 127 series 12. Additional smaller bilateral renal cysts are present. Stable small cortical irregularity and hypodensity along the lateral left kidne y image 125 series with tiny focus of calcification, which appeared cystic on prior MRI, too small to optimally characterize by CT. There is no hydronephrosis. No lymphadenopathy is seen. There are no dilated bowel loops. Divert icula arising from the duodenum. There is no ascites. Probable epidermal inclusion cyst over the posterior lower thoracic wall. No destructive osseous lesion is seen. D egenerative changes are noted in the spine. Procedure Note Ryan William MD - 11/07/2021 FULL RESULT: Examination: CT ABDOMEN W WO CONTRAST, 1 01/08/2021 11:01 AM Clinical History: Complex renal cyst Indication: renal cyst Comparison: CT dated 11/08/2020, outside facility MRI dated 03/07/2020 Technique: CT of the abdomen was perform ed with and without intravenous contrast. Findings: No suspicious pulmonary nodule in the vi sualized lung bases. No suspicious liver lesion is seen. Chol elithiasis noted. The spleen, pancreas and adrenal glands are unremarkable. Stable 2.5 cm mildly hyperdense cyst wit hout enhancement arising from the lower pole left kidney posteriorly on image 152 series 12. There is a 14 mm hyperdense right renal cyst on image 47 of series 12, stable. Small hyperdense cyst in the upper pole of the right kidney is stable seen on image 127 series 12. Additional smaller bilateral renal cysts are present. Stable small cortical irregularity and hypodensity along the lateral left kidney image 125 series with tiny focus of calcification, which appeared cystic on prior MRI, too small to optimally characterize by CT. There is no hydronephrosis. No lymphadenopathy is seen. There are no dilated bowel loops. Divert icula arising from the duodenum. There is no ascites. Probable epidermal inclusion cyst over the posterior lower thoracic wall. No destructive osseous lesion is seen. D egenerative changes are noted in the spine. IMPRESSION: Stable bilateral renal cysts some of whi ch are mildly hyperdense in keeping with proteinaceous/hemorrhagic cysts. Cholelithiasis. Performing Organization Address City/State/ZIP Code Phon e Number [id number] .Serum Creatinine (11/07/2021 8:26 AM WARP DRESSER) Pathologist Sig [facility] Creatinine 0.86Comment: Testing 0.67 - 1.17 mg/dL [place] performed at [facility], [address] [place] [id number] Specimen Blood Performing Organization Address City/State/ZIP Code Phon e Number [address] Glomerular Filtration Rate (11/07/2021 8:26 AM WARP DRESSER) Pathologist Sig [facility] eGFR-AA 97 >=60 mL/min/1.73 [place] Comment: sq. m Normal eGFR >= 60 mL/min/1.73 m2 Note: The eGFR is calculated using the CKD-EPI equation. The eGFR declines with age. eGFR <60 mL/min/1.73 m2 is considered as "decreased". This equation should only be used for patients 18 and older. According to the National dney Foundation's Kidney Disease Outcome Quality Initiative (KDOQI) classification and 2012 Kidney Disease Improving Global Outcomes (KDIGO) Clinical Practice Guideline, the stage of CKD should be categorized based on estimated GFR. Stage Description GFR mL/min/1.73 m2 1 Normal or high GFR >=90 2 Mildly decreased GFR 60-89 3a Mildly to moderately decreased GFR 45-59 3b Moderately to severely decreased GFR 30-44 4 Severely decreased GFR 15-29 5 Kidney failure <15 Testing performed at [facility], [address] [place] [id number] eGFR-LUCIE 84 >=60 mL/min/1.73 [place] Comment: sq. m Normal eGFR >= 60 mL/min/1.73 m2 Note: The eGFR is calculated using the CKD-EPI equation. The eGFR declines with age. eGFR <60 mL/min/1.73 m2 is considered as "decreased". This equation should only be used for patients 18 and older. According to the [facility]'s Kidney Disease Outcome Quality Initiative (KDOQI) classification and 2012 Kidney Disease Improving Global Outcomes (KDIGO) Clinical Practice Guideline, the stage of CKD should be categorized based on estimated GFR. Stage Description GFR mL/min/1.73 m2 1 Normal or high GFR >=90 2 Mildly decreased GFR 60-89 3a Mildly to moderately decreased GFR 45-59 3b Moderately to severely decreased GFR 30-44 4 Severely decreased GFR 15-29 5 Kidney failure <15 Testing performed at [facility], [address] [place] [id number] Specimen Blood Performing Organization Address City/State/ZIP Code Phon e Number [place], [place] [id number] [place] [address] BUN (11/07/2021 8:26 AM WARP DRESSER) Pathologist Sig nature BUN 14Comment: Testing 6 - 23 mg/dL [place] performed at [facility], [address] [place] [phone] Specimen Blood Performing Organization Address City/[facility]/ZIP [facility] Phon e Number [place], [place] [id number] [place] [address] (ABNORMAL) Glucose Level (11/07/2021 8:26 AM WARP DRESSER) Pathologist Sig nature Glucose Level 115 (H) 70 - 99 mg/dL [place] Comment: Effective 06/24/16, the gluco se reference intervals have been updated based on [place] Diabetes Association guidelines (Standards of Medical Care in Diabetes 2016. Diabetes Care 2016; 39: S13-S22). Fasting blood glucose: Normal: 70-99 mg/dL Impaired fasting glucose (in creased risk for diabetes or pre-diabetes): 100- 125 mg/dL Diabetes mellitus: >/=126 mg/dL Random blood glucose: Normal: 70-199 mg/dL Note: Random glucose >100 mg/dL is assoc iated with increased risk for diabetes Testing performed at [facility], [address] [place] [phone] Specimen Blood Performing Organization Address City/State/ZIP Code Phon e Number [place], [place] [id number] [place] [address] Calcium Level (11/07/2021 8:26 AM WARP DRESSER) Pathologist Sig nature Calcium Lvl 9.3Comment: Testing 8.4 - 10.2 mg/dL [place] performed at [facility], [address] [place] [address] Specimen Blood Performing Organization Address City/[facility]/[place] [address] [place] [address] Electrolyte Panel (11/07/2021 8:26 AM WARP DRESSER) Pathologist Sig nature Sodium Lvl 138Comment: Testing 136 - 145 mEq/L [place] performed at [facility], [address] [place] [address] Potassium Lvl 4.0Comment: Testing 3.5 - 5.1 mEq/L [place] performed at [facility], [address] [place] [address] Chloride 102Comment: Testing 98 - 107 mEq/L [place] performed at [facility], [address] [place] [address] CO2 26Comment: Testing 22 - 29 mEq/L [place] performed at [facility], [address] [place] [address] Anion Gap 10Comment: Testing 4 - 14 mEq/L [place] performed at [facility], [address] [place] [address] Specimen Blood Performing Organization Address City/State/ZIP Code Phon e Number [address] after 03/13/2021 Insurance Payer Benefit Plan Subscriber ID Effective Phone Address Typ e / Group Dates MEDICARE MEDICARE PART [id number] 2010-Pres [phone] [place] Medicare A AND B ent [id number] [employer] [address] [facility] [place] [phone] [place] AARP-SECONDAR [id number] 2019-Pres [address] [employer] ONLY ent [id number] [place] [address] Care Teams Net Technical Architect Relationship Specialty Start Date End Date Randal Bronson MD PCP - General Urology 03/15/20
[2022-03-13 11:48] LABS: Absolute Lymphocytes (CBC) 1.2 K/uL (0.7-4.9); Hematocrit 41.1 % (39.6-49.0); Lymphocytes % 17.3 % (15.3-44.8); MPV 7.8 fL (7.6-11.3); RBC Red Blood Cell Count 4.71 M/uL (4.33-5.43)
--- NOTE | 2022-03-13 11:51 | RAD REPORT ---
EXAM DESCRIPTION: CT - Head Brain Wo Cont - 03/13/2022 11:45 am CLINICAL HISTORY: Dizzy/ Lightheaded COMPARISON: No comparisons TECHNIQUE: All CT scans are performed using dose optimization technique as appropriate and may inclu de automated exposure control or mA/KV adjustment according to patient size. FINDINGS: No intracranial hemorrhage, hydrocephalus or extra-axial fluid collection.No areas of brai n edema or evidence of midline shift. The paranasal sinuses and mastoids are clear. The calvarium is intact. IMPRESSION: No acute intracranial abnormality.
--- NOTE | 2022-03-13 12:00 | RAD REPORT ---
EXAM DESCRIPTION: RAD - Chest Single View - 03/13/2022 11:55 am CLINICAL HISTORY: Lightheaded COMPARISON: Abdomen 1 View (KUB) dated 02/21/2020; Chest Single View dated 02/20/2020 FINDINGS: Lines: None. Lungs: No evidence of edema or pneumonia. Pleural: No significant pleural effusions or pneumothorax. Cardiac: The heart size is within normal limits. Bones: No acute fractures. Other: IMPRESSION: No acute cardiopulmonary disease.
[2022-03-13 12:11] LABS: Magnesium 2.3 mg/dL (1.8-2.4); Potassium 3.8 mmol/L (3.5-5.1); Troponin High Sensitivity 7.6 pg/mL (<58.9)
--- NOTE | 2022-03-13 15:38 | RAD REPORT ---
EXAM DESCRIPTION: MRI - Brain W/Wo Cont - 03/13/2022 3:30 pm CLINICAL HISTORY: DIZZY Headache, drowsiness, CVA symptomology COMPARISON: MRA Head Wo Cont dated 03/13/2022 TECHNIQUE: Multi-sequence, multiplanar MR imaging of the brain was performed with contrast. FINDINGS: No intracranial hemorrhage, hydrocephalus, or extra-axial fluid collection. No edema or sh ift of midline structures. No intracranial mass. DWI is negative for acute CVA. The midline structures are normally formed. Mastoid air cells and paranasal sinuses are clear. Post-contrast images show no abnormal enhancement to suggest tumor or infection. IMPRESSION: Negative for acute CVA or other acute intracranial process.
--- NOTE | 2022-03-13 15:40 | RAD REPORT ---
EXAM DESCRIPTION: MRI - MRA Head Wo Cont - 03/13/2022 3:29 pm CLINICAL HISTORY: dizzy CVA COMPARISON: Head Brain Wo Cont dated 03/13/2022 FINDINGS: 3D noncontrast [id number] MR angiography of the [place] was performed. No aneurysm, flow-limiting stenosis or vascular malformation is seen. Forward flow seen in the verteb ral arteries. The left vertebral artery is mildly dominant. The visualized dural venous sinuses appear patent. IMPRESSION: No significant flow abnormality of the [place] is identified.
--- NOTE | 2022-03-13 15:42 | RAD REPORT ---
EXAM DESCRIPTION: MRI - MRA Neck W/Wo Cont - 03/13/2022 3:29 pm CLINICAL HISTORY: DIZZY Headache, drowsiness, CVA symptomology COMPARISON: No comparisons FINDINGS: Contrast enhance 2D [id number] MR angiography of the neck vessels was performed. A left aortic arch is noted. Normal branching pattern of the great vessels is seen. Left carotid bulb demonstrates moderate narrowing estimated at 50-70% based on NASCET criteria. Mild narrowing is present right post bulbar proximal internal carotid artery estimated at less than 5 0%. Forward flow is seen in both vertebral arteries. Focal stenotic narrowing is suspected right mid intr acranial vertebral artery. IMPRESSION: 50-70% left carotid bulb stenosis suspected.
--- NOTE | 2022-03-13 16:26 | ER ---
Nurse's Notes [facility] Name: Evens Freitas Sr Age: 76 yrs Sex: Male : 1945 Arrival Date: 03/13/2022 Time: 11:12 Bed 2 Private MD: Basim Clark Diagnosis: lightheadedness;Hypertension Presentation: 03/13 11:19 Chief complaint: Patient states: was taking out the trash and started to feel weak and iw dizzy, checked his BP and it was high, still feels dizzy and weak. Coronavirus screen: At this time, the client does not indicate any symptoms associated with coronavirus-19. Ebola Screen: Patient negative for fever greater than or equal to 101.5 degrees Fahrenheit, and additional compatible Ebola Virus Disease symptoms Patient denies exposure to infectious person. Patient denies travel to an Ebola-affected area in the 21 days before illness onset. No symptoms or risks identified at this time. Initial Sepsis Screen: Does the patient meet any 2 criteria? No. Patient's initial sepsis screen is negative. Does the patient have a suspected source of infection? No. Patient's initial sepsis screen is negative. Risk Assessment: Do you want to hurt yourself or someone else? Patient reports no desire to harm self or others. Onset of symptoms was March 13, 2022. 11:19 Method Of Arrival: Wheelchair iw 11:19 Acuity: REKHA 3 iw Triage Assessment: 11:15 General: Appears in no apparent distress. uncomfortable, Behavior is calm, cooperative, jl7 appropriate for age. Pain: Denies pain. Neuro: Level of Consciousness is awake, alert, obeys commands, Oriented to person, place, time, situation. Cardiovascular: Denies chest pain, Patient's skin is warm and dry. Respiratory: Airway is patent Respiratory effort is even, unlabored, Respiratory pattern is regular, symmetrical, Denies shortness of breath. Derm: Skin is pink, warm \T\ dry. Historical: - Allergies: 11:30 No Known Allergies; jl7 - Home Meds: 11:27 aspirin 81 mg Oral chew 1 tab once daily [Active]; candesartan 32 mg Oral tab [Active]; jl7 - PMHx: 11:27 Hypertensive disorder; jl7 - PSHx: 11:27 hernia repair; jl7 - Immunization history:: Client reports receiving the 2nd dose of the Covid vaccine. - Social history:: Smoking status: Patient denies any tobacco usage or history of. Screenin:30 The patient has not been NPO before screening. The patient is currently on the jl7 following diet: home The patient is alert, able to follow commands. The patient does not exhibit slurred or garbled speech The patient is not exhibiting difficulty speaking. The patient does not exhibit difficulty understanding words. The patient is able to swallow own secretions with no drooling or need for suction. Patient tolerated one teaspoon of water. No drooling, immediate coughing, gurgling, or clearing of the throat was noted. The patient tolerated 90mL of water. No drooling, immediate coughing, gurgling, or clearing of the throat was noted. The patient passed the bedside swallow screening. Oral medications may be given as ordered. Contact Physician for further diet orders. Provider notified of bedside swallow screening results: Bob Adams DO. 11:31 Abuse screen: Denies threats or abuse. Denies injuries from another. Nutritional jl7 screening: No deficits noted. Tuberculosis screening: No symptoms or risk factors identified. Fall Risk IV access (20 points). Assessment: 11:15 General: See triage assessment. jl7 11:41 Reassessment: Pt to CT. jl7 12:15 Reassessment: Patient appears in no apparent distress at this time. No changes from jl7 previously documented assessment. Patient and/or family updated on plan of care and expected duration. Pain level reassessed. 13:15 Reassessment: Patient appears in no apparent distress at this time. No changes from jl7 previously documented assessment. Patient and/or family updated on plan of care and expected duration. Pain level reassessed. 14:52 Reassessment: Pt returned from MRI. jl7 Vital Signs: 11:27 BP 166 / 78; Pulse 58; Resp 15; Temp 98; Pulse Ox 95% ; Weight 138.35 kg; Height 5 ft. jl7 11 in. (180.34 cm); Pain 0/10; 12:00 BP 131 / 57; Pulse 51; Resp 15; Pulse Ox 96% ; jl7 12:02 BP 133 / 56 Supine; Pulse 50; jl7 12:04 BP 141 / 67; Pulse 50; jl7 12:05 BP 155 / 79; Pulse 53; jl7 13:30 BP 143 / 61; Pulse 50; Resp 15; Pulse Ox 97% ; jl7 14:52 BP 125 / 84; Pulse 99; Resp 15; Pulse Ox 100% ; jl7 16:00 BP 133 / 66; Pulse 50; Resp 15; Pulse Ox 98% ; jl7 11:27 Body Mass Index 42.54 (138.35 kg, 180.34 cm) jl7 NIH Stroke Scale Scores: 11:20 NIHSS Score: 0 jl7 ED Course: 11:12 Patient arrived in ED. as 11:12 Basim Clark MD is Private Physician. as 11:12 Bob Adams DO is Attending Physician. ms3 11:14 Arnie Payton, JOSE DANIEL is Primary Nurse. jl7 11:20 Triage completed. iw 11:20 Arm band placed on. iw 11:31 Patient has correct armband on for positive identification. Placed in gown. Bed in low jl7 position. Call light in reach. Side rails up X 1. road advisor on. Pulse ox on. NIBP on. Warm blanket given. 11:31 EKG done, by ED staff, reviewed by Bob Adams DO. jl7 11:41 Initial lab(s) drawn, by vt, sent to lab. Inserted saline lock: 20 gauge in left jl7 antecubital area, using aseptic technique. Blood collected. 11:47 CT Head Brain wo Cont In Process Unspecified. EDMS 11:56 XRAY Chest (1 view) In Process Unspecified. EDMS 15:25 MRA Head Wo Cont In Process Unspecified. EDMS 15:25 Brain W/Wo Cont In Process Unspecified. EDMS 15:25 MRA Neck W/Wo Cont In Process Unspecified. EDMS 16:25 Basim Clark MD is Referral Physician. ms3 Administered Medications: No medications were administered Outcome: 16:26 Discharge ordered by . ms3 17:01 Patient left the ED. iw NIH Stroke Scale - NIH Stroke Score Date: 03/13/2022 Time: 11:20 Total Score = 0 1a. Level of Consciousness (LOC) - 0(Alert) 1b. Level of Consciousness (LOC) (Month \T\ Age) - 0(Both) 1c. LOC Commands (Open \T\ Closes Eyes/Industrial Truck Mechanic) - 0(Both) 2. Best Gaze (Lateral Gaze Paresis) - 0(Normal) 3. Visual Field Loss - 0(No visual loss) 4. Facial Palsy - 0(Normal) 5a. Left Arm: Motor (10-second hold) - 0(No drift) 5b. Right Arm: Motor (10-second hold) - 0(No drift) 6a. Left Leg: Motor (5-second hold - always test supine) - 0(No drift) 6b. Right Leg: Motor (5-second hold - always test supine) - 0(No drift) 7. Limb Ataxia (finger/nose \T\ heel/zeng - test with eyes open) - 0(Absent) 8. Sensory Loss (pinprick arms/legs/face) - 0(Normal) 9. Best Language: Aphasia (description/naming/reading) - 0(No aphasia) 10. Dysarthria (speech clarity - read or repeat words) - 0(Normal) 11. Extinction and Inattention (visual/tactile/auditory/spatial/personal) - 0(No abnormality) Initials: kamlesh Signatures: Dispatcher [employer] Nahed Saenz Irene, RN RN Arnie Gasca RN RN jl7 Bob Adams DO DO ms3 Corrections: (The following items were deleted from the chart) 11:31 11:27 PMHx: Hyperlipidemia; kamlesh jlCami 12:15 12:05 BP 155 / 79; Pulse 23bpm; kamlesh [email or web address]
--- NOTE | 2022-03-13 16:26 | EDPHYS ---
Physician Documentation [facility] Name: Evens Freitas Sr Age: 76 yrs Sex: Male : 1945 Arrival Date: 03/13/2022 Time: 11:12 Bed 2 Private MD: Basim Clark ED Physician Bob Adams HPI: 03/13 11:36 This 76 yrs old Male presents to ER via Wheelchair with complaints of Dizziness, High ms3 Blood Pressure. 11:36 The patient presents with dizziness, feeling faint, lightheadedness, feeling off ms3 balance. Onset: The symptoms/episode began/occurred 2 hour(s) ago. Context: Occurred while taking the garbage out. Modifying factors: The symptoms are alleviated by nothing, the symptoms are aggravated by nothing. Associated signs and symptoms: The patient has no apparent associated signs or symptoms. Severity of symptoms: At their worst the symptoms were moderate in the emergency department the symptoms are unchanged Pain is currently a 0 / 10. 76-year-old male with past medical history of hypertension presents for lightheadedness that began 2 hours prior to arrival. Patient states he noted his blood pressure to be elevated when walking around. Patient denies pain. Patient denies alleviating factors.. Historical: - Allergies: 11:30 No Known Allergies; jl7 - Home Meds: 11:27 aspirin 81 mg Oral chew 1 tab once daily [Active]; candesartan 32 mg Oral tab [Active]; jl7 - PMHx: 11:27 Hypertensive disorder; jl7 - PSHx: 11:27 hernia repair; jl7 - Immunization history:: Client reports receiving the 2nd dose of the Covid vaccine. - Social history:: Smoking status: Patient denies any tobacco usage or history of. ROS: 11:36 Constitutional: Negative for fever, and chills. ENT: Negative for injury, pain, and ms3 discharge, Neck: Negative for injury, pain, and swelling, Cardiovascular: Negative for chest pain, and palpitations. Respiratory: Negative for shortness of breath, cough, wheezing, and pleuritic chest pain, Abdomen/GI: Negative for abdominal pain, nausea, vomiting, diarrhea, and constipation, MS/Extremity: Negative for injury and deformity, Skin: Negative for injury, rash, and discoloration. 11:36 Neuro: Positive for dizziness. 11:36 All other systems are negative. Exam: 11:21 ECG was reviewed by the Attending Physician. ms3 11:36 Constitutional: This is a well developed, well nourished patient who is awake, alert, ms3 and in no acute distress. Head/Face: Normocephalic, atraumatic. Neck: Trachea midline, no cervical lymphadenopathy. Supple, full range of motion without nuchal rigidity, or vertebral point tenderness. No Meningismus. Chest/axilla: Normal chest wall appearance and motion. Nontender with no deformity. Cardiovascular: Regular rate and rhythm with a normal S1 and S2. No gallops, murmurs, or rubs. Normal PMI, no JVD. No pulse deficits. Respiratory: Lungs have equal breath sounds bilaterally, clear to auscultation and percussion. No rales, rhonchi or wheezes noted. No increased work of breathing, no retractions or nasal flaring. Abdomen/GI: Soft, non-tender, with normal bowel sounds. No distension or tympany. No guarding or rebound. No evidence of tenderness throughout. Skin: Warm, dry with normal turgor. Normal color with no rashes, no lesions, and no evidence of cellulitis. MS/ Extremity: Pulses equal, no cyanosis. Neurovascular intact. Full, normal range of motion. Psych: Awake, alert, with orientation to person, place and time. Behavior, mood, and affect are within normal limits. Vital Signs: 11:27 BP 166 / 78; Pulse 58; Resp 15; Temp 98; Pulse Ox 95% ; Weight 138.35 kg; Height 5 ft. jl7 11 in. (180.34 cm); Pain 0/10; 12:00 BP 131 / 57; Pulse 51; Resp 15; Pulse Ox 96% ; jl7 12:02 BP 133 / 56 Supine; Pulse 50; jl7 12:04 BP 141 / 67; Pulse 50; jl7 12:05 BP 155 / 79; Pulse 53; jl7 13:30 BP 143 / 61; Pulse 50; Resp 15; Pulse Ox 97% ; jl7 14:52 BP 125 / 84; Pulse 99; Resp 15; Pulse Ox 100% ; jl7 16:00 BP 133 / 66; Pulse 50; Resp 15; Pulse Ox 98% ; jl7 11:27 Body Mass Index 42.54 (138.35 kg, 180.34 cm) jl7 NIH Stroke Scale Scores: 11:20 NIHSS Score: 0 jl7 MDM: 11:25 Patient medically screened. ms3 11:36 Differential diagnosis: cardiac arrhythmia, CVA, TIA, vertigo. ms3 18:18 Data reviewed: vital signs, lab test result(s), radiologic studies, CT scan, MRI. ms3 Counseling: I had a detailed discussion with the patient and/or guardian regarding: the historical points, exam findings, and any diagnostic results supporting the discharge/admit diagnosis, lab results, radiology results, the need for outpatient follow up, to return to the emergency department if symptoms worsen or persist or if there are any questions or concerns that arise at home. ED course: Discussed labs, CT scan, MRIs, physical exam findings with patient and his . They understand and agree with plan. 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 All questions were answered. Return precautions discussed include worsening symptoms, or any other concerns. On reevaluation patient is alert and oriented x4, no apparent distress, nontoxic, neurologically intact, ambulatory in emergency department. 03/13 11:28 Order name: Basic Metabolic Panel; Complete Time: 12:22 ms3 03/13 11:28 Order name: CBC with Diff; Complete Time: 12: ms3 03/13 11:28 Order name: Magnesium; Complete Time: 12: ms3 03/13 11:28 Order name: Troponin HS; Complete Time: 12:22 ms3 03/13 11:28 Order name: XRAY Chest (1 view); Complete Time: 12:22 ms3 03/13 11:28 Order name: CT Head Brain wo Cont; Complete Time: 12:22 ms3 03/13 11:28 Order name: EKG; Complete Time: 11:29 ms3 03/13 11:28 Order name: Cardiac monitoring; Complete Time: 11:40 ms3 03/13 11:28 Order name: EKG - Nurse/Tech; Complete Time: 11:40 ms3 03/13 14:19 Order name: MRA Head Wo Cont; Complete Time: 16:17 EDMS 03/13 14:21 Order name: Brain W/Wo Cont; Complete Time: 16:17 EDMS 03/13 14:21 Order name: MRA Neck W/Wo Cont; Complete Time: 16:17 EDMS 03/13 11:28 Order name: IV Saline Lock; Complete Time: 11:40 ms3 03/13 11:28 Order name: Labs collected and sent; Complete Time: 11:40 ms3 03/13 11:28 Order name: O2 Per Protocol; Complete Time: 11:41 ms3 03/13 11:28 Order name: O2 Sat Monitoring; Complete Time: 11:41 ms3 03/13 11:50 Order name: Orthostatics; Complete Time: 12:13 ms3 EC:21 Rate is 54 beats/min. Rhythm is regular, Sinus bradycardia. DE interval is normal. No ms3 ST changes noted. Clinical impression: Sinus bradycardia. Interpreted by me. Reviewed by me. Administered Medications: No medications were administered Disposition Summary: 03/13/22 16:26 Discharge Ordered Location: Home ms3 Problem: new ms3 Symptoms: have improved ms3 Condition: Stable ms3 Diagnosis - lightheadedness ms3 - Hypertension ms3 Followup: ms3 - With: Basim Clark MD - When: 2 - 3 days - Reason: Recheck today's complaints Discharge Instructions: - Discharge Summary Sheet ms3 - Dizziness ms3 Forms: - Medication Reconciliation Form ms3 - Thank You Letter ms3 - Antibiotic Education ms3 - Prescription Opioid Use ms3 NIH Stroke Scale - NIH Stroke Score Date: 03/13/2022 Time: 11:20 Total Score = 0 1a. Level of Consciousness (LOC) - 0(Alert) 1b. Level of Consciousness (LOC) (Month \T\ Age) - 0(Both) 1c. LOC Commands (Open \T\ Closes Eyes/[employer]) - 0(Both) 2. Best Gaze (Lateral Gaze Paresis) - 0(Normal) 3. Visual Field Loss - 0(No visual loss) 4. Facial Palsy - 0(Normal) 5a. Left Arm: Motor (10-second hold) - 0(No drift) 5b. Right Arm: Motor (10-second hold) - 0(No drift) 6a. Left Leg: Motor (5-second hold - always test supine) - 0(No drift) 6b. Right Leg: Motor (5-second hold - always test supine) - 0(No drift) 7. Limb Ataxia (finger/nose \T\ heel/zeng - test with eyes open) - 0(Absent) 8. Sensory Loss (pinprick arms/legs/face) - 0(Normal) 9. Best Language: Aphasia (description/naming/reading) - 0(No aphasia) 10. Dysarthria (speech clarity - read or repeat words) - 0(Normal) 11. Extinction and Inattention (visual/tactile/auditory/spatial/personal) - 0(No abnormality) Initials: kamlesh Signatures: Dispatcher [employer] Arnie Juarez RN RN jl7 Bob Adams DO DO ms3 Corrections: (The following items were deleted from the chart) 11: 11:27 PMHx: Hyperlipidemia; kamlesh jl7 14:19 13:17 Stroke Protocol ordered. EDMS EDMS
[2022-03-13 17:53] VITALS: TEMP 98
[2022-03-13 18:02] VITALS: BP 125/84; O2SAT 100
== END 2022-03-13 17:01 | disposition home or self-care (01) ==
LOC: ER 11:09
DX: I10 Essential (primary) hypertension (principal); Z79.82 Long term (current) use of aspirin
CPT/HCPCS: 93005; 85025; 80048; 36415; 83735; 84484; 70450; 71045; 70553; 70544; 70549; 99284; A9577

== ENCOUNTER 2023-04-18 11:33 | Observation (INO) | payer OTHER, MEDICARE ==
--- OUTSIDE RECORDS SUMMARY | 2023-04-18 11:37 | XMS REPORT | Clinical Summary ---
:1945 Author Organization [facility] MD [facility] Address [address] [place] [address] Care Team Providers Name Role Phone Domingo Preston APN Primary Care Provider Allergies No known active allergies Medications Medication Sig Dispensed Refills Start Date End Date Status candesartan-hydrochlorot Take 1 tablet by 0 11/29/19 10 Active hiazide (ATACAND HCT) mouth daily. 32-12.5 mg per tablet aspirin 81 mg chewable Chew 1 tablet 0 Active tablet (81 mg) daily. ciprofloxacin HCl Take 1 tablet 0 02/24/2022 Active (CIPRO) 500 mg tablet (500 mg) by mouth daily. Active Problems Not on file Encounters Date Type Specialty Care Team Description 11/11/2022 Telemedicine Urology Domingo Preston APN Renal mass 11/10/2022 Ancillary Procedure Radiology Domingo Preston APN Robert al mass 11/10/2022 Travel after 04/18/2022 Surgical History Surgery Date Site/Laterality Comments UMBILICAL HERNIA REPAIR Medical History Medical History Date Comments Hypertension Family History Medical History Relation Name Comments Melanoma Brother Brain cancer Father Breast cancer Mother Pancreatic cancer Sister Relation Name Status Comments Brother Father Mother Sister Social History Tobacco Use Types Packs/Day Years Used Date Smoking Tobacco: Former Sex Assigned at Date Recorded Male 04/28/2020 5:15 PM CDT Job Start Date Occupation Industry Not on file Not on file Not on file Obstetrics History Last Filed Vital Signs Vital Sign Reading Time Taken Comments Blood Pressure 144/56 11/10/2022 12:05 PM [employer] Pulse 58 11/10/2022 12:05 PM [employer] Temperature - - Respiratory Rate 18 11/10/2022 12:05 PM [employer] Oxygen Saturation 97% 11/10/2022 12:05 PM [employer] Inhaled Oxygen Concentration - - Weight 142.5 kg (314 lb 2.5 oz) 11/10/2022 9:47 AM [employer] Height 179 cm (5' 10.47") 11/10/2022 9:47 AM [employer] Body Mass Index 44.47 11/10/2022 9:47 AM [employer] Plan of Treatment Date Type Specialty Care Team Description 11/08/2023 Lab Lab Kalen Mota MD [address] [place], [place] [address] (Wo rk) 11/08/2023 Ancillary Procedure Radiology Jovita Mota MD [address] [place], [place] [address] (Wo rk) 11/09/2023 Telemedicine Urology Kalen Mota MD [address] [place], [place] [address] (Wo rk) Health Maintenance Due Date Last Done Comments COVID-19 Vaccination (4 - Booster 10/22/2021 08/27/2021, , for Pfizer series) 01/22/2021 Procedures Procedure Name Priority Date/Time Associated Comments Diagnosis CT ABDOMEN W WO CONTRAST Routine 11/10/2022 11:55 Renal mass Results for this AM [employer] procedure are i n the results section. FRACTIONATED BILIRUBIN Routine 11/10/2022 8:44 Renal mass Re sults for this AM [employer] procedure are i n the results section. TOTAL PROTEIN Routine 11/10/2022 8:44 Renal mass Results for this AM [employer] procedure are i n the results section. ASPARTATE Routine 11/10/2022 8:44 Renal mass Results for this AMINOTRANSFERASE AM [employer] procedure a re in the results section. ALANINE AMINOTRANSFERASE Routine 11/10/2022 8:44 Renal mass Results for this AM [employer] procedure are i n the results section. ALKALINE PHOSPHATASE Routine 11/10/2022 8:44 Renal mass Resu lts for this AM [employer] procedure are i n the results section. ALBUMIN LEVEL Routine 11/10/2022 8:44 Renal mass Results for this AM [employer] procedure are i n the results section. CALCIUM LEVEL TOTAL Routine 11/10/2022 8:44 Renal mass Resul ts for this AM [employer] procedure are i n the results section. .GLOMERULAR FILTRATION Routine 11/10/2022 8:44 Renal mass Re sults for this RATE AM [employer] procedure are i n the results section. SERUM CREATININE Routine 11/10/2022 8:44 Renal mass Results for this AM [employer] procedure are i n the results section. ELECTROLYTE PANEL Routine 11/10/2022 8:44 Renal mass Results for this AM [employer] procedure are i n the results section. BLOOD UREA NITROGEN Routine 11/10/2022 8:44 Renal mass Resul ts for this AM [employer] procedure are i n the results section. GLUCOSE LEVEL Routine 11/10/2022 8:44 Renal mass Results for this AM [employer] procedure are i n the results section. MANUAL DIFFERENTIAL Routine 11/10/2022 8:44 Renal mass Resul ts for this AM [employer] procedure are i n the results section. Results CBC Routine 11/10/2022 8:44 Renal mass Results for this AM [employer] procedure are i n the results section. COMPREHENSIVE METABOLIC Routine 11/10/2022 8:44 Renal mass PANEL AM [employer] COMPLETE BLOOD COUNT W/ Routine 11/10/2022 8:44 Renal mass DIFFERENTIAL AM [employer] after 04/18/[address] Abdomen with and without Contrast (11/10/2022 11:55 AM [employer]) Anatomical Region Laterality Modality Abdomen Computed Tomography Specimen (Source) Anatomical Collection Method Collection Time Re ceived Time Location / / Volume Laterality 11/10/2022 3:06 PM [employer] Impressions 11/10/2022 3:17 PM [employer] Grossly stable appearance of the 1 cm he terogenous cystic lesion in the left kidney, to be closely monitored to exclude small renal neoplasm. Similarly, there are a few other tiny, too small to characte rize subcentimeter renal hypodensities. Recommend continued close monitoring. Narrative 11/10/2022 3:17 PM [employer] Examination: CT ABDOMEN W WO CONTRAST, 1 01/11/2022 11:55 AM Clinical History: Renal mass Indication: bilateral renal cysts Comparison: None Technique: CT of the abdomen was perform ed with and without intravenous contrast. Findings: Diffuse hepatic steatosis. Cholelithiasi s without CT evidence of cholecystitis. No biliary dilatation. Spleen, pancreas and adrenals are unrema rkable. No enlarged upper abdominal nodes. No hydronephrosis. Small renal cysts. Th ere are several other tiny, too small to characterize renal hypodensities. In particular, there is one heterogenous cystic lesion in the left kidney midpole region measuring 1 cm [series 7, image 120] demonstrating subtle mild heterogenous enhancement. Possibility of small renal cell carcinoma is not excluded. Another example is a 5 mm nodule in the posterior right renal upper pole [series 7, image 128; series 12, image 127]. This can be closely monitored. There is a smaller cyst seen adjacent to this [series 12, image 129]. Stable 2.1 cm subcutaneous cystic focus in the right posterior mid back near the midline, probably sebaceous cyst and can be clinically correlated. Procedure Note Elizabeth Wood MD - 022 Examination: CT ABDOMEN W WO CONTRAST, 1 01/11/2022 11:55 AM Clinical History: Renal mass Indication: bilateral renal cysts Comparison: None Technique: CT of the abdomen was perform ed with and without intravenous contrast. Findings: Diffuse hepatic steatosis. Cholelithiasi s without CT evidence of cholecystitis. No biliary dilatation. Spleen, pancreas and adrenals are unrema rkable. No enlarged upper abdominal nodes. No hydronephrosis. Small renal cysts. Th ere are several other tiny, too small to characterize renal hypodensities. In particular, there is one heterogenous cystic lesion in the left kidney midpole region measuring 1 cm [series 7, image 120] demonstrating subtle mild heterogenous enhancement. Possibility of small renal cell carcinoma is not excluded. Another example is a 5 mm nodule in the posterior right renal upper pole [series 7, image 128; series 12, image 127]. This can be closely monitored. There is a smaller cyst seen adjacent to this [series 12, image 129]. Stable 2.1 cm subcutaneous cystic focus in the right posterior mid back near the midline, probably sebaceous cyst and can be clinically correlated. IMPRESSION: Grossly stable appearance of the 1 cm he terogenous cystic lesion in the left kidney, to be closely monitored to exclude small renal neoplasm. Similarly, there are a few other tiny, too small to characterize subcentimeter renal hypodensities. Recom mend continued close monitoring. Domingo Preston APN IMG CT ORDERABLES .Serum Creatinine (11/10/2022 8:44 AM [employer]) athologist Signature Creatinine 0.81 0.67 - 1.17 [place] mg/dL Comment: Testing performed at [facility], [address] [place] [address] 21422 Specimen Anatomical Collection Method Collection Time Receive d Time (Source) Location / / Volume Laterality Blood 11/10/2022 8:44 AM 9:08 [employer] AM [employer] Domingo Preston APN LAB BLOOD ORDERABLES Performing Organization Address City/State/ZIP Code [place] [address] [place] [address] .CBC (11/10/2022 8:44 AM [employer]) athologist Signature WBC 8.8 4.0 - 11.0 [place] K/uL Comment: All components of the CBC perfo rmed at [facility], [address] [place] [address] 7757 33 RBC 4.93 4.50 - 6.00 M/uL [place] Comment: All components of the CBC perfo rmed at [facility], [address] [place] [address] 7757 3 Hgb 14.6 14.0 - 18.0 gm/dL [place] Comment: As part of CBC or as an individ ual orderable testing performed at [facility], [address] [place] [address] 80055 Hct 43.6 40.0 - 54.0 % [place] Comment: As part of CBC testing performe d at [facility], [address] [place] [address] 31915 MCV 88 82 - 98 fL [place] Comment: As part of CBC testing performe d at [facility], [address] [place] [address] 69375 MCH 29.6 27.0 - 31.0 pg [place] Comment: As part of CBC testing performe d at [facility], [address] [place] [address] 27539 MCHC 33.5 31.0 - 36.0 gm/dL [place] Comment: As part of CBC testing performe d at [facility], [address] [place] [address] 90126 RDW-SD 42.6 35.1 - 46.3 fL [place] Comment: As part of CBC testing performe d at [facility], [address] [place] [address], [place] [address] RDW-CV 13.0 12.0 - 15.5 % [place] Comment: As part of CBC testing performe d at [facility], [address] [place] [address] 84409 Platelet count 228 140 - 440 K/uL [facility] Comment: As part of CBC or an individual orderable testing performed at [facility], [address] [place] [address] 72715 MPV 9.6 4.0 - 10.4 fL [place] Comment: As part of CBC testing performe d at [facility], [address] [place] [address] 71678 Specimen Anatomical Collection Method Collection Time Receive d Time (Source) Location / / Volume Laterality Blood 11/10/2022 8:44 AM 9:08 [employer] AM [employer] Domingo Preston APN LAB BLOOD ORDERABLES Performing Organization Address City/State/ZIP Code Phon e Number [place], [place] [id number] [place] [address] Glomerular Filtration Rate (11/10/2022 8:44 AM [employer]) athologist Signature eGFR 91 >=60 [place] mL/min/1.73 sq. m Comment: The eGFRcr is calculated with the 2020 KD-EPI creatinine equation using creatinine, patient's age, and sex for adults 18 years of age and older. Other factors, especially muscle mass, may affect accuracy and need to be considered. According to the Kidney Disease: Improvi ng Global Outcomes (KDIGO) CKD Work Group 2012 Clinical Practice Guideline, chronic kidney disease (CKD) is defined as the abnormalities of kidney structure or function, present for more than 3 months, with implications for health. CKD should be c lassified by cause, GFR category, and albuminuria category. KDIGO guidelines provide the following GFR categories Stage Description GFR mL/min/1.73 m2 G1* Normal or high >= 90 G2* Mildly decreased 60-89 G3a Mildly to moderately decreased 45-59 G3b Moderately to severely decreased 30- 44 G4 Severely decreased 15-29 G5 Kidney failure <15 *In the absence of evidence of kidney da mage, neither G1 nor G2 fulfill criteria for CKD. Testing performed at [facility], [address] [place] [address] 36934 Specimen Anatomical Collection Method Collection Time Receive d Time (Source) Location / / Volume Laterality Blood 11/10/2022 8:44 AM 9:08 [employer] AM [employer] Domingo Preston APN LAB BLOOD ORDERABLES Performing Organization Address City/State/ZIP Code Phon e Number [place], [place] [phone] [place] [address] Fractionated Bilirubin (11/10/2022 8:44 AM [employer]) athologist Signature Bili Total 0.5 <=1.2 mg/dL [place] Comment: Indocyanine Green (ICG) may cause falsel y elevated bilirubin results. Total and direct bilirubin must not be measured from samples containing indocyanine green. False elevation of total bilirubin can b e seen in patients with IgG concentrations above 28 g/L. Testing performed at [facility], [address] [place] [address] 12151 Bili Direct <0.2 <=0.3 mg/dL [place] Comment: Indocyanine Green (ICG) may cause falsel y elevated bilirubin results. Total and direct bilirubin must not be measured from samples containing indocyanine green. Testing performed at [facility], [address] [place] [address] 03508 Bili Indirect See Note 0.0 - 0.9 mg/dL [facility] Comment: Unable to calculate Indirect Bilirubin r esult due to some parameters are outside reportable range Testing performed at [facility], [address] [place] [address] 83142 Specimen Anatomical Collection Method Collection Time Receive d Time (Source) Location / / Volume Laterality Blood 11/10/2022 8:44 AM 9:08 [employer] AM [employer] Domingo Preston [employer] LAB BLOOD ORDERABLES Performing Organization Address City/State/ZIP Code [place] [address] [place] [address] (ABNORMAL) Differential (11/10/2022 8:44 AM [employer]) athologist Signature Neutrophil % 64.8 42.0 - 66.0 [place] % Comment: All components of the Different ial performed at [facility], [address] [place], [place] [id number] Lymphocyte % 21.1 (L) 24.0 - 44.0 % [place] Comment: As part of the Differential satish ting performed at [facility], [address] [place], [place] [id number] Monocyte % 10.9 (H) 2.0 - 7.0 % [place] Comment: As part of the Differential satish ting performed at [facility], [address] [place] [address] 60064 Eosinophil % 2.5 1.0 - 4.0 % [place] Comment: As part of the Differential satish ting performed at [facility], [address] [place] [address] 42693 Basophil % 0.6 0.0 - 1.0 % [place] Comment: As part of the Differential satish ting performed at [facility], [address] [place] [address] 59351 IGRE % 0.1 0.0 - 0.4 % [place] Comment: IGRE % count includes Metamyelocytes, My elocytes, and Promyelocytes. As part of the Differential testing perf ormed at [facility], [address] [place] [address] 32165 Neutrophil Abs 5.68 1.70 - 7.30 K/uL [facility] Comment: As part of the Differential satish ting performed at [facility], [address] [place] [address] 96271 Lymphocyte Abs 1.85 1.00 - 4.80 K/uL [facility] Comment: As part of the Differential satish ting performed at [facility], [address] [place] [address] 25513 Monocyte Abs 0.96 (H) 0.08 - 0.70 K/uL [facility] Comment: As part of the Differential satish ting performed at [facility], [address] [place] [address] 85734 Eosinophil Abs 0.22 0.04 - 0.40 K/uL [facility] Comment: As part of the Differential satish ting performed at [facility], [address] [place] [address] 65123 Basophil Abs 0.05 0.00 - 0.10 K/uL [facility] Comment: As part of the Differential satish ting performed at [facility], [address] [place] [address] IG Abs 0.01 0.00 - 0.04 K/uL [place] Comment: As part of the Differential satish ting performed at [facility], [address] [place] [address] Specimen Anatomical Collection Method Collection Time Receive d Time (Source) Location / / Volume Laterality Blood 11/10/2022 8:44 AM 2 9:08 [employer] AM [employer] Domingo Preston [employer] LAB BLOOD ORDERABLES Performing Organization Address City/State/ZIP Code Phon e Number [place], [place] [id number] [place] [address] BUN (11/10/2022 8:44 AM [employer]) P athologist Signature BUN 14 6 - 23 mg/dL [place] Comment: Testing performed at [facility], [address] [place] [address] 60674 Specimen Anatomical Collection Method Collection Time Receive d Time (Source) Location / / Volume Laterality Blood 11/10/2022 8:44 AM 2 9:08 [employer] AM [employer] Domingo LIVINGSTONN LAB BLOOD ORDERABLES Performing Organization Address City/[facility]/ZIP Code Phon e Number [address] ALT (11/10/2022 8:44 AM [employer]) athologist Signature ALT 27 <=41 U/L [place] Comment: Testing performed at [facility], [address] [place] [address] 72949 Specimen Anatomical Collection Method Collection Time Receive d Time (Source) Location / / Volume Laterality Blood 11/10/2022 8:44 AM 2 9:08 [employer] AM [employer] Domingo Preston [employer] LAB BLOOD ORDERABLES Performing Organization Address City/[facility]/ZIP Code Phon e Number [place], [place] [phone] [place] [address] Aspartate Aminotransferase (11/10/2022 8:44 AM [employer]) athologist Signature AST 32 <=40 U/L [place] Comment: Testing performed at [facility], [address] [place] [address] 82057 Specimen Anatomical Collection Method Collection Time Receive d Time (Source) Location / / Volume Laterality Blood 11/10/2022 8:44 AM 2 9:08 [employer] AM [employer]ATE Domingo Preston [employer] LAB BLOOD ORDERABLES Performing Organization Address City/[facility]/ZIP Code Phon e Number [place], [place] [id number] [place] [address] Total Protein (11/10/2022 8:44 AM [employer]) athologist [facility] Total Protein 7.3 6.4 - 8.3 [place] g/dL Comment: Testing performed at [facility], [address] [place] [address] 31026 Specimen Anatomical Collection Method Collection Time Receive d Time (Source) Location / / Volume Laterality Blood 11/10/2022 8:44 AM 2 9:08 [employer] AM [employer]ATE Domingo Preston [employer] LAB BLOOD ORDERABLES Performing Organization Address City/[facility] Code Phon e Number [place], [place] [address] [place] [address] Alkaline Phosphatase (11/10/2022 8:44 AM ENG[employer]) athologist Signature Alk Phos 87 40 - 129 U/L [place] Comment: Testing performed at [facility], [address] [place] [address] 91162 Specimen Anatomical Collection Method Collection Time Receive d Time (Source) Location / / Volume Laterality Blood 11/10/2022 8:44 AM 2 9:08 [employer] AM [employer] Domingo Preston LAURE LAB BLOOD ORDERABLES Performing Organization Address City/State/ZIP Code Phon e Number [place], [place] [id number] [place] [address] (ABNORMAL) Glucose Level (11/10/2022 8:44 AM ENGRA[employer]) athologist Signature Glucose Level 117 (H) 70 - 99 [place] mg/dL Comment: Effective 06/24/16, the glucose reference intervals have been updated based on [place] [employer] guidelines (Standards of Medical Care in Diabetes 2016. Diabetes Care 2016; 39: S13-S22). Fasting blood glucose: Normal: 70-99 mg/dL Impaired fasting glucose (increased risk for diabetes or pre-diabetes): 100- 125 mg/dL Diabetes mellitus: >/=126 mg/dL Random blood glucose: Normal: 70-199 mg/dL Note: Random glucose >100 mg/dL is assoc iated with increased risk for diabetes Testing performed at [facility], [address] [place] [address] 09580 Specimen Anatomical Collection Method Collection Time Receive d Time (Source) Location / / Volume Laterality Blood 11/10/2022 8:44 AM 2 9:08 [employer] AM [employer] Domingo Preston LAURE LAB BLOOD ORDERABLES Performing Organization Address City/State/ZIP [place] [address] [place] [address] Calcium Level (11/10/2022 8:44 AM ENGRAVER [employer]) athologist Signature Calcium Lvl 9.4 8.4 - 10.2 [place] mg/dL Comment: Testing performed at [facility], [address] [place] [address] 84154 Specimen Anatomical Collection Method Collection Time Receive d Time (Source) Location / / Volume Laterality Blood 11/10/2022 8:44 AM 2 9:08 [employer] AM ENGRAVER [employer]ATE Domingo Preston [employer]PER[employer] LAB BLOOD ORDERABLES Performing Organization Address City/State/ZIP Code [place] [address] [place] [address] Albumin Level (11/10/2022 8:44 AM ENGRAVER [employer]ATE) athologist Signature Albumin Lvl 4.4 3.5 - 5.2 [place] gm/dL Comment: Testing performed at [facility], [address] [place] [address] 24041 Specimen Anatomical Collection Method Collection Time Receive d Time (Source) Location / / Volume Laterality Blood 11/10/2022 8:44 AM 2 9:08 ENGRAVER [employer] AM ENGRAVER [employer]ATE Domingo Preston W[employer]EW[employer] SUPER[employer]OR LAB BLOOD ORDERABLES Performing Organization Address City/State/[facility] [place] [address] [place] [address] Electrolyte Panel (11/10/2022 8:44 AM ENGRAVER [employer]ATE) athologist Signature Sodium Lvl 141 136 - 145 [place] mEq/L Comment: Testing performed at [facility], [address] [place] [address] 75845 Potassium Lvl 3.9 3.5 - 5.1 mEq/L [facility] Comment: Testing performed at [facility], [address] [place] [address] 45131 Chloride 106 98 - 107 mEq/L [place] Comment: Testing performed at [facility], [address] [place] [address] 38561 CO2 23 22 - 29 mEq/L [place] Comment: Testing performed at [facility], [address] [place] [address] 80900 Anion Gap 12 4 - 14 mEq/L [place] Comment: Testing performed at [facility], [address] [place] [address] 67570 Specimen Anatomical Collection Method Collection Time Receive d Time (Source) Location / / Volume Laterality Blood 11/10/2022 8:44 AM 9:08 ENGRAVER [employer] AM [employer]RAVER [employer]ATE Domingo Preston APN LAB BLOOD ORDERABLES Performing Organization Address City/State/ZIP Code Phon e Number NELLIE GUILLEN MD [facility] [place] [address] [address] [facility] after 04/18/2022 Insurance Payer Benefit Plan Subscriber ID Effective Phone Address Typ e / Group Dates MEDICARE MEDICARE PART [id number] 2010-Pres [phone] [place] Medicare A AND B ent [id number] [employer] [place] [address] [place] AARP-SECONDAR [id number] 2019-Pres [address] [employer] ONLY ent [id number] [place] [address] Evens Freitas Personal/Family Self 1945 [address] [place] [address] Evens Freitas Personal/Family Self 1945 [address] [place] [address] Care Teams Surgical Services Assistant Relationship Specialty Start Date End Date Domingo Preston APN PCP - General 03/24/[address] [place] [id number]
--- OUTSIDE RECORDS SUMMARY | 2023-04-18 11:38 | XMS REPORT | Continuity of Care Document ---
:1945 Author Organization [facility] t Address [address] [facility] [address] [place] [address] Care Team Providers Name Role Phone [phone] Primary Care Physician Unavailable Vahe Winter MD Attending Clinician [phone] Deanne Foley MA Attending Clinician Unavailable Deandre Mccray Attending Clinician Rose Venegas APRN Attending Clinician BIANCA PRESTON Attending Clinician Unavailable Domingo Preston APN Attending Clinician FORTINO RODRIGUEZ Attending Clinician Unavailable JORGITO MCKAY Attending Clinician Unavailable JORGITO CRESPO Attending Clinician Unavailable VAHE WINTER Admitting Clinician Unavailable Payers Payer Name Policy Type Policy Number Effective Date Expiration Date S nathan MEDICARE PART A [id number] 2010 AND B 00:00:00 [employer]-SE[employer] [id number] 2019 ONLY 00:00:00 Problems Condition Condition Condition Status Onset Resolution Last Treating Co mments Source Name Details Category Date Date Treatment Clinician Date 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 Family History Family Member Diagnosis Comments Start Date Stop Date Source Natural mother Breast cancer Univers ity [facility] Natural sister Pancreatic cancer Uni versity [facility] Natural brother Melanoma Universit y [facility] Natural father Brain cancer Universi ty of [facility] Social History Social Habit Start Date Stop Date Quantity Comments Source Gender identity 2022-02-12 Identifies as male M ethodist 12:36:15 gender (finding) Hospital Sexual orientation 2022-02-12 Heterosexual Meth odist 12:36:15 (finding) Hospital History of tobacco Current smoker Me [facility]odist use Hospital Alcohol intake 2023-01-12 2023-01-12 Lifetime Zoroastrian 00:00:00 00:00:00 non-drinker Hospital (finding) History of Social 2023-01-12 2023-01-[address] function 00:00:00 00:00:00 Hospital Tobacco use and 2023-01-06 2023-01-06 Smokeless tobacco Me thodist exposure 00:00:00 00:00:00 non-user Hospital Sex Assigned At [address] [facility] Smoking Status Start Date Stop Date Source Ex-smoker 2023-01-06 00:00:00 2023-01-06 [facility] Medications Ordered Filled Start Stop Current Ordering Indication Dosage Frequency Signature Comments Components Source Medication Medication Date Date Medication? Clinician (SIG) Name Name tamsulosin Yes TAKE 2 Metho di (FLOMAX) 5-08 CAPSULES(0 st 0.4 mg 00:00: .8 MG) BY Hospit a capsule 00 MOUTH l DAILY tamsulosin 2022- No .8mg QD Take 2 Meth tomas (FLOMAX) 5-03 05-[address] 0.4 mg 00:00: 00:00 (0.8 mg Hospita capsule 00 :00 total) by l mouth daily for 90 days. ciprofloxac Yes 250mg Q.5D Take 1 Met hodi in HCl 3-[address] (CIPRO) 250 00:00: (250 mg Hos ron MG tablet 00 total) by l mouth 2 (two) times a day. candesartan 0 Yes 32mg QD Take 1 Meth tomas (ATACAND) 2-14 tablet (32 st 32 MG 12:03: mg total) Hospita tablet 57 by mouth l daily. aspirin Yes 81mg QD Take 1 Methodi (ECOTRIN) 2-14 tablet (81 st 81 MG 12:03: mg total) Hospita enteric 57 by mouth l coated daily. tablet Last dose 12/23/2022 docusate 2022- No 100mg Q.5D Take 1 Metho di sodium 01-12-[address] (Colace) 00:00: 04:59 (100 mg Hospi ta 100 MG 00 :00 total) by l capsule mouth 2 (two) times a day for 30 days. phenazopyri 2022- No 100mg Q.[id number] Take 1 Methodi dine -01-[id number] (Pyridium) 00:00: 05:59 3D (100 mg Hos ron 100 MG 00 :00 total) by l tablet mouth 3 (three) times a day as needed for bladder spasms (dysuria) for up to 10 days. nitrofurant 2022- No 100mg Q.5D Take 1 Me thodi oin, 01-12 02-[address] macrocrysta 00:00: 05:59 (100 mg Ho spita l-monohydra 00 :00 total) by l te, mouth 2 (Macrobid) (two) 100 MG times a capsule day for 5 days. sodium,pota Yes [id number] Drink 1 Methodi ssium,mag 1-[address] sulfates 00:00: directed Hospi ta (Suprep 00 for dose 1 l Bowel Prep and 1 Kit) bottle as 17.5-3.13-1 directed .6 gram for dose recon soln 2. aspirin 81 2021-11 Yes 81mg Chew 1 Unive rs mg chewable 2-13 tablet (81 it y of tablet 16:05: mg) daily. [place] [id number] [facility] silodosin Yes 8mg QD Take 1 Method i (RAPAFLO) 8 8-04 capsule (8 st mg capsule 00:00: mg total) Ho spita 00 by mouth l daily. silodosin 2021- No 8mg QD Take 1 Metho di (RAPAFLO) 8 5-11 08-04 capsule (8 s t mg capsule 00:00: 00:00 mg total) H ospita 00 :00 by mouth l daily. ciprofloxac Yes 500mg Take 1 Uni vers in HCl 3-29 tablet ity of (CIPRO) 500 00:00: (500 mg[place] 00 by mouth daily. [facility] candesartan Yes 1{tbl} Take 1 Un miguel -hydrochlor 1-01 tablet by ity of othiazide 00:00: mouth Kierra (ATACAND 00 daily. HCT) Araceli 32-12.5 mg n per tablet [facility] Immunizations Ordered Immunization Filled Immunization Date Status Commen ts Source Name Name PFIZER COVID-19 MRNA 2022-07-21 Completed Meth odist VACCINATION 00:00:00 [facility] PFIZER COVID-19 MRNA 2021-08-27 Completed Meth odist VACCINATION 00:00:00 [facility] PFIZER COVID-19 MRNA 2021-02-12 Completed Meth odist VACCINATION 00:00:00 [facility] PFIZER COVID-19 MRNA 2021-01-22 Completed Meth odist VACCINATION 00:00:00 Hospital Vital Signs Vital Name Observation Time Observation Value Comments Source Systolic blood 2023-01-12 13:03:57 154 mm[Hg] Method [facility] pressure Diastolic blood 2023-01-12 13:03:57 84 mm[Hg] [facility] pressure Heart rate 2023-01-12 13:03:57 54 /min [facility] Body temperature 2023-01-12 13:03:57 36.06 [facility] Respiratory rate 2023-01-12 13:03:57 19 /min [facility] Oxygen saturation in 2023-01-12 13:03:57 93 /min [facility] Arterial blood by Pulse oximetry Body height 2023-01-11 15:14:00 180.3 cm [facility] Body weight 2023-01-11 15:14:00 140.479 kg [facility] BMI 2023-01-11 15:14:00 43.19 kg/m2 [facility] Systolic blood 2022-11-10 18:05:42 144 mm[Hg] Univer sity of pressure Kierra Conrad [facility] Diastolic blood 2022-11-10 18:05:42 56 mm[Hg] Unive rsity of pressure Kierra [facility] Heart rate 2022-11-10 18:05:42 58 /min [facility] Respiratory rate 2022-11-10 18:05:42 18 /min [facility] Oxygen saturation in 2022-11-10 18:05:42 97 /min [facility] Arterial blood by Kierra tavares Pulse oximetry Cancer Center Body height 2022-11-10 15:47:00 179 cm [facility] Body weight 2022-11-10 15:47:00 142.5 kg [facility] BMI 2022-11-10 15:47:00 44.47 kg/m2 [facility] MD [facility] Procedures Procedure Date / Time Performing Clinician Source Performed ANESTHESIA SPINAL BLOCK 2023-01-11 20:27:49 [facility] [place] AN ELECTIVE 2023-01-11 19:13:00 [facility] ENDOTRACHEAL AIRWAY TRANSURETHRAL AQUABLATION 2023-01-11 18:52:00 [facility] OF THE PROSTATE Vahe Hutchison SURGICAL PATHOLOGY REQUEST 2023-01-11 15:04:00 [facility] Vahe Hutchison XR CHEST 2 VW 2023-01-06 16:38[facility]00 [facility] 2023-01-06 16:07:00 [facility] URINALYSIS SCREEN AND 2023-01-06 16:07:00 Rose Venegas [facility] MICROSCOPY, WITH REFLEX TO CULTURE PARTIAL THROMBOPLASTIN 2023-01-06 15:56:00 Rose Venegas [facility] TIME (PTT) PROTHROMBIN TIME WITH INR 2023-01-06 15:56:00 [facility] WITH PLATELET AND 2023-01-06 15:56:00 Rose Venegas [facility] DIFFERENTIAL COMPREHENSIVE METABOLIC 2023-01-06 15:56:00 [facility] Jay Em Curry [facility] PANEL HEMOGLOBIN A1C 2023-01-06 15:56:00 Theo [facility] ESTIMATED GFR 2023-01-06 15:56:00 Theo, [facility] ECG PRE/POST OP 2023-01-06 15:55:24 [facility] URINE CULTURE 2023-01-06 15:47:00 [facility] CT ABDOMEN W WO CONTRAST 2022-11-10 17:55:00 oDmingo Preston [facility] COMPLETE BLOOD COUNT W/ 2022-11-10 14:44:00 Mohan [facility] DIFFERENTIAL [facility] COMPREHENSIVE METABOLIC 2022-11-10 14:44:00 Mohan [facility] PANEL [facility] Results CBC 2022-11-10 14:44:00 Domingo Preston [facility] MANUAL DIFFERENTIAL 2022-11-10 14:44:[address] [facility] GLUCOSE LEVEL 2022-11-10 14:44:00 Domingo Preston [facility] BLOOD UREA NITROGEN 2022-11-10 14:44:[address] [facility] ELECTROLYTE PANEL 2022-11-10 14:44:00 Mohan [facility] SERUM CREATININE 2022-11-10 14:44:00 Mohan [facility] .GLOMERULAR FILTRATION 2022-11-10 14:44:00 Domingo Preston [facility] RATE [facility] CALCIUM LEVEL TOTAL 2022-11-10 14:44:[address] [facility] ALBUMIN LEVEL 2022-11-10 14:44:00 Domingo Preston [facility] ALKALINE PHOSPHATASE 2022-11-10 14:44:00 Domingo Preston [facility] ALANINE AMINOTRANSFERASE 2022-11-10 14:44:00 Domingo Preston [facility] ASPARTATE AMINOTRANSFERASE 2022-11-10 14:44:00 Domingo Preston [facility] Center TOTAL PROTEIN 2022-11-10 14:44:00 Domingo Preston [facility] FRACTIONATED BILIRUBIN 2022-11-10 14:44:00 Domingo [facility] of Care Planned Activity Planned Date Details Comments Source Future Scheduled 2023-04-12 Hepatitis C screening [facility] Test 12:54:54 (procedure) [code = 637318316] Future Scheduled 2023-04-12 SHINGLES VACCINES (1 [facility] Test 12:54:54 of 2) [code = SHINGLES VACCINES (1 of 2)] Future Scheduled 2023-04-12 65+ PNEUMOCOCCAL [facility] Test 12:54:54 VACCINE (1 - PCV) [code = 65+ PNEUMOCOCCAL VACCINE (1 - PCV)] Future Scheduled 2023-04-12 COVID-19 VACCINE (5 - Me [facility] Test 12:54:54 Booster for Pfizer series) [code = COVID-19 VACCINE (5 - Booster for Pfizer series)] Future Scheduled 2023-04-12 INFLUENZA VACCINE [facility] Test 12:54:54 [code = INFLUENZA VACCINE] Future Scheduled 2023-01-12 COVID-19 Vaccination [facility] Test 20:57:33 (4 - Booster for [facility] Cancer Pfizer series) [code Center = COVID-19 Vaccination (4 - Booster for Pfizer series)] Encounters Start End Encounter Admission Attending Care Care Encounter Source Date/Time Date/Time Type Type Clinicians Facility Department ID 2023-04-05 2023-04-05 Refill [facility] 1.2.840.1 [id number] Methodi 00:00:00 00:00:00 oval, [address]28.1.[address] Vahe [place] 3.430.2.7 Ho spita .3.650196 l .8 2023-03-31 2023-03-31 Office [facility] 1.2.840.1 [id number] Methodi 09:00:00 09:15:00 Visit oval, [address]307.1.[address] Vahe [place] 3.430.2.7 Ho spita .3.428846 l .8 2023-03-31 2023-03-31 Outpatient LEVIN-SAND [facility] [id number] [place] 00:00:00 00:00:00 OVAL, [address] 2023-02-26 2023-02-26 Office [facility] 1.2.840.1 [id number] 21 [id number] Methodi 09:15:00 09:58:26 Visit oval, 16217.1.[address] Vahe [place] 3.430.2.7 Ho spita .3.814534 l .8 2023-02-26 2023-02-26 Outpatient LEVIN-SAND [facility] [id number] [place] 00:00:00 00:00:00 OVAL, [address] 2023-02-11 2023-02-11 Telephone [facility] 1.2.840.1 [id number] Methodi 00:00:00 00:00:00 oval, 89159.1.[address] Vahe [place] 3.430.2.7 Ho spita .3.439542 l .8 2023-02-10 2023-02-10 Telephone [facility] 1.2.840.1 [id number] Methodi 00:00:00 00:00:00 oval, [address]122.1.[address] Vahe [place] 3.430.2.7 Ho spita .3.709566 l .8 2023-01-25 2023-01-25 Office [facility] 1.2.840.1 [id number] Methodi 15:30:00 16:14:14 Visit oval, 51983.1.[address] Vahe [place] 3.430.2.7 Ho spita .3.144417 l .8 2023-01-25 2023-01-25 Travel 1.2.840.1 1.2.876.293 [id number] Methodi 00:00:00 00:00:[address] 3.430.2.7 0.2.7.3.698 Ho spita .3.873135 084.8 l .8 2023-01-25 2023-01-25 Outpatient [facility] [id number] [place] 00:00:00 00:00:00 OVAL, [address] 2023-01-21 2023-01-21 Telephone [facility] 1.2.840.1 [id number] Methodi 00:00:00 00:00:00 oval, [address]100.1.[address] Vahe [place] 3.430.2.7 Ho spita .3.909396 l .8 2023-01-21 2023-01-21 Telephone Og, 1.2.840.1 [id number] Methodi 00:00:00 00:00:[address] 3.430.2.7 Hospit a .3.618011 l .8 2023-01-11 2023-01-12 [facility] 1.2.840.1 [id number] Methodi 08:33:00 12:03:00 Encounter oval, 79949.1.[address] Vahe [place] 3.430.2.7 Ho spita .3.771715 l .8 2023-01-12 2023-01-12 Telephone [facility] 1.2.840.1 [id number] Methodi 00:00:00 00:00:00 oval, 70832.1.[address] Vahe [place] 3.430.2.7 Ho spita .3.471567 l .8 2023-01-11 2023-01-12 Outpatient [place] [id number] [place] 00:00:00 00:00:00 OVAL, [address] 2023-01-11 2023-01-11 Surgery [facility] 1.2.840.1 [id number] Methodi 12:30:00 14:45:00 oval, 63283.1.[address] Vahe [place] 3.430.2.7 Ho spita .3.902158 l .8 2023-01-11 2023-01-11 Anesthesia Deandre Mccray 1.2.840.1 [id number] Methodi 12:52:00 14:40:00 Event Rose Venegas. 18681.1.[address] 3.430.2.7 Hospit a .3.351935 l .8 2023-01-08 2023-01-08 Ella Foley, 1.2.840.1 [id number] Methodi 00:00:00 00:00:[address] 3.430.2.7 Hospit a .3.172724 l .8 2023-01-06 2023-01-06 [facility] 1.2.840.1 [id number] Methodi 09:00:00 23:59:00 Encounter oval, 65178.1.[address] [place] 3.430.2.7 Ho spita .3.652906 l .8 2023-01-06 2023-01-06 Pre-Admiss [facility], Vahe Ner y 1.2.840.1 [id number] Methodi 09:30:00 10:30:00 ion Rose Venegas. 36502.1.[address] Testing 3.430.2.7 Hospit a .3.964482 l .8 2023-01-06 2023-01-06 Outpatient [facility] [id number] [place] 00:00:00 00:00:00 OVAL, [address] 2023-01-06 2023-01-06 Travel 1.2.840.1 1.2.795.277 [id number] Methodi 00:00:00 00:00:[address] 3.430.2.7 0.2.7.3.698 Ho spita .3.852148 084.8 l .8 2023-01-06 2023-01-06 Outpatient [facility] [id number] [place] 00:00:00 00:00:00 OVAL, [address] 2022-12-08 2022-12-08 Orders Og, 1.2.840.1 [id number] Methodi 00:00:00 00:00:00 Only Deanne 75032.1.[address] 3.430.2.7 Hospit a .3.445849 l .8 2022-12-07 2022-12-07 Prep for Og, 1.2.840.1 [id number] Methodi 00:00:00 00:00:00 Surgery Deanne 16486.1.[address] 3.430.2.7 Hospit a .3.544806 l .8 2022-12-04 2022-12-04 Telephone Poonam-Danyelle 1.2.840.1 [id number] Methodi 00:00:00 00:00:00 oval, 51261.1.[address] Va[place] 3.430.2.7 Ho spita .3.216580 l .8 2022-11-12 2022-11-12 Outpatient BIANCA HARDEN MDA, MDA [id number] 15:18:37 15:18:37 [place] niño 2022-11-11 2022-11-11 Telemedici Preston, 1.2.840.1 [id number] Univers 16:00:00 16:30:00 ne Domingo 48784.1.1 ity of 3.412.2.7 [place] .3.887040 .8 [facility] 2022-11-10 2022-11-10 Ancillary Preston, 1.2.840.[id number] [facility] 09:30:00 12:20:00 Procedure Domingo 15229.1.1 it y of 3.412.2.7 [place] .3.276215 .8 [facility] 2022-11-10 2022-11-10 Outpatient BIANCA HARDEN MDA, MDA [id number] 09:13:25 09:13:25 [place] 2022-11-10 2022-11-10 Outpatient BIANCA HARDEN MDA MDA [id number] 08:44:18 09:12:26 [place] 2022-11-10 2022-11-10 Travel 1.2.840.[id number] [facility] 00:00:00 00:00:00 56068.1.1 350.1.13.41 ity of 3.412.2.7 2.[place].7.3.698 [place] .3.601003 084.[address] [facility] 2022-10-08 2022-10-08 Office [facility] 1.2.840.1 [id number] Methodi 09:15:00 09:58:00 Visit oval, 77393.1.[address] Va[place] 3.430.2.7 Ho spita .3.620814 l .8 2022-10-08 2022-10-08 Outpatient [facility] [id number] [place] 00:00:00 00:00:00 OVAL, [address] 2022-10-08 2022-10-08 Travel 1.2.840.1 1.2.940.552 [id number] Methodi 00:00:00 00:00:[address] 3.430.2.7 0.2.7.3.698 Ho spita .3.666365 084.8 l .8 2022-07-02 2022-07-02 [facility] [id number] 21 [id number] Methodi 09:15:00 09:30:33 Visit oval, 18652.1.[address] Va[place] 3.430.2.7 Ho spita .3.950114 l .8 2022-07-02 2022-07-02 Outpatient [facility] [id number] [place] 00:00:00 00:00:00 OVAL, [address] 2022-05-07 2022-05-07 Telephone [facility] 1.2.840.1 [id number] Methodi 00:00:00 00:00:00 oval, 97362.1.[address] Vahe [place] 3.430.2.7 Ho spita .3.731305 l .8 2022-04-08 2022-04-08 Outpatient LEVIN-SAND [facility] [id number] [place] 00:00:00 00:00:00 OVAL, [address] 2022-03-16 2022-03-16 Outpatient ATTAR, [facility] [id number] [place] 00:00:00 00:00:00 MOHAMMED [address] 2022-02-25 2022-02-25 Outpatient LEVIN-SAND [facility] [id number] [place] 00:00:00 00:00:00 OVAL, [address] 2022-02-06 2022-02-06 Outpatient [facility] [id number] [place] 00:00:00 00:00:[address] 2022-02-03 2022-02-03 Outpatient LEVIN-SAND [facility] [id number] [place] 00:00:00 00:00:00 OVAL, [address] 2022-01-27 2022-01-27 Outpatient LEVIN-SAND [facility] [id number] [place] 00:00:00 00:00:00 OVAL, [address] 2022-01-13 2022-01-13 Outpatient LEVIN-SAND [facility] [id number] [place] 00:00:00 00:00:00 OVAL, [address] 2021-11-13 2021-11-13 Outpatient EL WOOD, MDA MDA [id number] MD 21:15:13 21:15:13 JORGITO niño 2021-11-07 2021-11-07 Outpatient EL WOOD, MDA MDA [id number] MD 08:33:51 08:33:51 JORGITO hollidayso n 2021-11-07 2021-11-07 Outpatient EL WOOD, MDA MDA [id number] MD 08:25:36 08:27:15 JORGITO hollidayso [place] 2021-08-27 2021-08-27 Outpatient [facility] [id number] [place] 00:00:00 00:00:[address] 2021-02-12 2021-02-12 Outpatient ROBBEN, [facility] [id number] [place] 00:00:00 00:00:00 JORGITO [address] 2021-01-22 2021-01-22 Outpatient [facility] [id number] [place] 00:00:00 00:00:[address] 2020-11-13 2020-11-13 Outpatient NIXON MCKAY MDA MDA [id number] 10:29:52 10:29:52 JORGITO Carreon derso n 2020-11-08 2020-11-08 Outpatient NIXON MCKAY MDA MDA [id number] 10:02:07 10:02:07 JORGITO Carreon derso n 2020-11-08 2020-11-08 Outpatient NIXON MCKAY MDA MDA [id number] 10:00:02 10:00:02 JORGITO Carreon derso n 2020-11-08 2020-11-08 Outpatient NIXON MCKAY MDA MDA [id number] 09:36:19 09:52:45 JORGITO Carreon derso n Results Test Description Test Time Test Comments Results Result Comments Source Surgical pathology request 2023-01-19 20:43:15 Test Item Value Reference Range Interpretation Comme [facility] Case number (test code = 9294132) [id number] Surgical pathology report (test code = See link below for PDF Lab R eport 2254) Result status (test code = 3100092) This is Final Report for [id number] [facility] Pre/Post [id number] 01:35:59 Test Item Value Reference Range Interpretation Comments Ventricular rate (test 48 code = 253) Atrial rate (test code = 48 255) [place] interval (test code = 172 266) QRSD interval (test code 108 = 260) QT interval (test code = 442 264) QTC interval (test code 394 = 265) P axis 1 (test code = 55 267) QRS axis 1 (test code = 18 268) T wave axis (test code = 42 270) EKG impression (test Poor data code = 273) quality-Sinus bradycardia-Otherwise normal ECG-No previous ECGs available-Electronica lly Signed By Yara Michelle MD ([id number]) on 01/07/2023 7:35:57 PM [facility]
--- NOTE | 2023-04-18 12:20 | RAD REPORT ---
EXAM DESCRIPTION: RAD - Chest Single View - 04/18/2023 12:10 pm CLINICAL HISTORY: CHEST PAIN Chest pain. COMPARISON: Chest Single View dated 03/13/2022; Abdomen 1 View (KUB) dated 02/21/2020; Chest Single Vi ew dated 02/20/2020 FINDINGS: Portable technique limits examination quality. The lungs are grossly clear. The heart is normal in size. No displaced fractures. IMPRESSION: No acute intrathoracic process suspected.
[2023-04-18 12:57] LABS: Absolute Lymphocytes (CBC) 1.3 K/uL (0.7-4.9); Hematocrit 39.6 % (39.6-49.0); MCV 87.6 fL (80-100); MPV 8.4 fL (7.6-11.3); RBC Red Blood Cell Count 4.52 M/uL (4.33-5.43)
[2023-04-18 13:15] LABS: Albumin 3.4 g/dL (3.4-5.0); Bilirubin Total 0.4 mg/dL (0.2-1.0); Potassium 3.9 mEq/L (3.5-5.1); Protein, Total 6.6 g/dL (6.4-8.2); Troponin High Sensitivity 8.5 pg/mL (<58.9)
[2023-04-18] MEDS ORDERED: NITROGLYCERIN 0.4 MG/TAB SL ONE (13:22)
--- NOTE | 2023-04-18 15:06 | EDPHYS ---
Physician Documentation [facility] Name: Evens Freitas Sr Age: 77 yrs Sex: Male : 1945 Arrival Date: 04/18/2023 Time: 11:33 Bed 14 Private MD: ED Physician Luciano Finley HPI: 04/18 16:15 This 77 yrs old Male presents to ER via Ambulatory with complaints of Dizziness, Chest rt Pain. 16:15 Patient presents to the ED with an intermittent chest pain for the past 5 days, rt worsening in intensity. He has associated dizziness. Patient states that he went to his PCP who prescribed him a beta-davide, unsure which one it was due to the chest pain. Reports a dizziness, lightheadedness associated with this. Patient states that the pain starts at the left anterior chest, radiates to the jaw. Denies other radiation, other aggravating or elevating factors. Symptoms are moderate severity.. Historical: - Home Meds: 12:44 aspirin 81 mg Oral chew 1 tab once daily [Active]; candesartan 32 mg Oral tab [Active]; eh3 - PMHx: 12:44 Hypertensive disorder; eh3 - PSHx: 12:44 hernia repair; eh3 - Immunization history:: Adult Immunizations up to date. - Social history:: Smoking status: unknown. - Family history:: not pertinent. ROS: 16:15 Constitutional: Negative for fever, chills, and weight loss, Respiratory: Negative for rt shortness of breath, cough, wheezing, and pleuritic chest pain, Abdomen/GI: Negative for abdominal pain, nausea, vomiting, diarrhea, and constipation, MS/Extremity: Negative for injury and deformity, Skin: Negative for injury, rash, and discoloration, Psych: Negative for depression, anxiety, suicide ideation, homicidal ideation, and hallucinations. 16:15 Cardiovascular: Positive for chest pain, Negative for edema. 16:15 Neuro: Positive for near syncope, Negative for altered mental status. Exam: 16:11 ECG was reviewed by the Attending Physician. rt 16:15 Constitutional: This is a well developed, well nourished patient who is awake, alert, rt and in no acute distress. Head/Face: Normocephalic, atraumatic. Chest/axilla: Normal chest wall appearance and motion. Nontender with no deformity. No lesions are appreciated. Cardiovascular: Regular rate and rhythm with a normal S1 and S2. No gallops, murmurs, or rubs. Normal PMI, no JVD. No pulse deficits. Respiratory: Lungs have equal breath sounds bilaterally, clear to auscultation and percussion. No rales, rhonchi or wheezes noted. No increased work of breathing, no retractions or nasal flaring. Abdomen/GI: Soft, non-tender, with normal bowel sounds. No distension or tympany. No guarding or rebound. No evidence of tenderness throughout. Skin: Warm, dry with normal turgor. Normal color with no rashes, no lesions, and no evidence of cellulitis. MS/ Extremity: Pulses equal, no cyanosis. Neurovascular intact. Full, normal range of motion. Neuro: Awake and alert, GCS 15, oriented to person, place, time, and situation. Cranial nerves II-XII grossly intact. Motor strength 5/5 in all extremities. Sensory grossly intact. Cerebellar exam normal. Normal gait. Psych: Awake, alert, with orientation to person, place and time. Behavior, mood, and affect are within normal limits. Vital Signs: 11:45 BP 173 / 66; Pulse 51; Resp 18; Temp 98.5(O); Pulse Ox 96% on R/A; eh3 11:45 BP 160 / 52 RA Sitting (auto/lg); Pulse 59; eh3 11:55 BP 142 / 61 RA Sitting (auto/lg); Pulse 50; eh3 12:15 BP 121 / 104 LA; Pulse 48; Resp 16; Pulse Ox 96% on R/A; eh3 12:45 BP 131 / 55 RA; Pulse 43; Resp 16; Pulse Ox 96% on R/A; eh3 13:15 BP 123 / 56; Pulse 47; Resp 18; Pulse Ox 96% on R/A; eh3 13:45 BP 117 / 53; Pulse 46; Resp 16; Pulse Ox 95% on R/A; eh3 14:15 BP 122 / 54; Pulse 47; Resp 18; Pulse Ox 96% on R/A; eh3 14:45 BP 127 / 54; Pulse 41; Resp 14; Pulse Ox 97% on R/A; eh3 15:15 BP 139 / 68; Pulse 45; Resp 15; Pulse Ox 96% on R/A; eh3 15:45 BP 138 / 62; Pulse 40; Resp 16; Pulse Ox 97% on R/A; eh3 16:15 BP 139 / 61; Pulse 41; Resp 14; Pulse Ox 97% on R/A; eh3 MDM: 11:41 Patient medically screened. rt 16:15 Differential diagnosis: Symptomatic bradycardia, acute coronary syndrome, pneumonia, rt pneumothorax. Data reviewed: vital signs, nurses notes. Consideration of Admission/Observation Patient was admitted/placed on observation. Management of patient was discussed with the following: Hospitalist: Agrees to admit. I considered the following discharge prescriptions or medication management in the emergency department Medications were administered in the Emergency Department. See MAR. Care significantly affected by the following chronic conditions: Hypertension. Counseling: I had a detailed discussion with the patient and/or guardian regarding: the historical points, exam findings, and any diagnostic results supporting the discharge/admit diagnosis, lab results, radiology results, the need for further work-up and treatment in the hospital. 04/18 11:51 Order name: CBC with Diff; Complete Time: 13:19 rt 04/18 11:51 Order name: CMP; Complete Time: 13:19 rt 04/18 11:51 Order name: Troponin High Sensitivity; Complete Time: 13:19 rt 04/18 11:51 Order name: Lipase; Complete Time: 13:19 rt 04/18 11:51 Order name: Chest Single View XRAY; Complete Time: 12:21 rt 04/18 11:51 Order name: EKG; Complete Time: 11:52 rt 04/18 11:51 Order name: EKG - Nurse/Tech; Complete Time: 12:11 rt EC:11 Rate is 48 beats/min. Rhythm is regular, Sinus bradycardia with No ectopy. QRS [place] is rt Normal. UT interval is normal. QRS interval is normal. QT interval is normal. No Q waves. Clinical impression: NSR w/ Non-specific ST/T Changes. Administered Medications: 13:18 Drug: Nitroglycerin Sublingual 0.4 mg Route: Sublingual; 3 13:23 Drug: Nitroglycerin Sublingual 0.4 mg Route: Sublingual; 3 13:28 Drug: Nitroglycerin Sublingual 0.4 mg Route: Sublingual; 3 13:42 Follow up: Response: Pain is decreased [facility] Disposition Summary: 04/18/23 15:06 Hospitalization Ordered Hospitalization Status: Observation rt Provider: Domingo Faustin rt Location: Telemetry/MedSurg (observation) rt Condition: Stable rt Problem: new rt Symptoms: have improved rt Bed/Room Type: Standard rt Room Assignment: 404(04/18/23 15:54) eb Diagnosis - Chest pain, unspecified rt Discharge Instructions: - Discharge Summary Sheet rt Forms: - Medication Reconciliation Form rt - SBAR form rt Signatures: Dispatcher [employer] Ngoc Atkinson Erin RN RN 3 Luciano Finley MD MD rt Corrections: (The following items were deleted from the chart) 15:54 15:06 rt eb
--- NOTE | 2023-04-18 15:06 | ER ---
Nurse's Notes [facility] Name: Evens Freitas Sr Age: 77 yrs Sex: Male : 1945 Arrival Date: 04/18/2023 Time: 11:33 Bed 14 Private MD: Diagnosis: Chest pain, unspecified Presentation: 04/18 11:45 Method Of Arrival: Ambulatory eh3 11:45 Chief complaint: Patient states: chest pain for 5 days. Coronavirus screen: Vaccine eh3 status: Patient reports receiving the 2nd dose of the covid vaccine. Ebola Screen: No symptoms or risks identified at this time. Initial Sepsis Screen: Does the patient meet any 2 criteria? No. Patient's initial sepsis screen is negative. Does the patient have a suspected source of infection? No. Patient's initial sepsis screen is negative. Risk Assessment: Do you want to hurt yourself or someone else? Patient reports no desire to harm self or others. Onset of symptoms was April 13, 2023. 11:45 Acuity: REKHA 2 eh3 Triage Assessment: 11:45 General: Appears in no apparent distress. uncomfortable, Behavior is calm, cooperative, eh3 appropriate for age. Pain: Complains of pain in anterior aspect of left upper chest Pain does not radiate. Pain currently is 4 out of 10 on a pain scale. Quality of pain is described as sharp, stabbing, Pain began suddenly, 5 days ago Is intermittent. EENT: No signs and/or symptoms were reported regarding the EENT system. Neuro: Level of Consciousness is awake, alert, obeys commands, Oriented to person, place, time, situation. Cardiovascular: Capillary refill < 3 seconds Patient's skin is warm and dry. Respiratory: Airway is patent Respiratory effort is even, unlabored, Respiratory pattern is regular, symmetrical. GI: Abdomen is round non-distended. : No signs and/or symptoms were reported regarding the genitourinary system. Derm: Skin is pink, warm \T\ dry. Musculoskeletal: Circulation, motion, and sensation intact. Historical: - Home Meds: 12:44 aspirin 81 mg Oral chew 1 tab once daily [Active]; candesartan 32 mg Oral tab [Active]; eh3 - PMHx: 12:44 Hypertensive disorder; eh3 - PSHx: 12:44 hernia repair; eh3 - Immunization history:: Adult Immunizations up to date. - Social history:: Smoking status: unknown. - Family history:: not pertinent. Screenin:45 [facility] ED Fall Risk Assessment (Adult) Score/Fall Risk Level 0 - 2 = Low Risk. Abuse eh3 screen: Denies threats or abuse. Denies injuries from another. Nutritional screening: No deficits noted. Tuberculosis screening: No symptoms or risk factors identified. Assessment: 11:45 Reassessment: No changes from previously documented assessment. See triage assessment. eh3 Pain: Complains of pain in anterior aspect of left upper chest Pain does not radiate. Pain currently is 4 out of 10 on a pain scale. at worst was 10 out of 10 on a pain scale. Quality of pain is described as sharp, stabbing, Pain began 5 days ago Is intermittent, Alleviated by nothing. 12:45 Reassessment: Patient appears in no apparent distress at this time. Patient and/or eh3 family updated on plan of care and expected duration. Pain level reassessed. Patient is alert, oriented x 3, equal unlabored respirations, skin warm/dry/pink. 13:15 Reassessment: Provider notified. Pain: Complains of pain in anterior aspect of left eh3 upper chest Pain does not radiate. Pain currently is 9 out of 10 on a pain scale. Quality of pain is described as sharp, squeezing. 13:30 Reassessment: Patient states symptoms have improved. Pt does not think the eh3 nitroglycerin helped, pain has been intermittent in days prior as well. 13:45 Reassessment: Patient appears in no apparent distress at this time. Patient and/or eh3 family updated on plan of care and expected duration. Pain level reassessed. Patient is alert, oriented x 3, equal unlabored respirations, skin warm/dry/pink. 14:45 Reassessment: Patient appears in no apparent distress at this time. Patient and/or eh3 family updated on plan of care and expected duration. Pain level reassessed. Patient is alert, oriented x 3, equal unlabored respirations, skin warm/dry/pink. 15:45 Reassessment: Patient appears in no apparent distress at this time. Patient and/or eh3 family updated on plan of care and expected duration. Pain level reassessed. Patient is alert, oriented x 3, equal unlabored respirations, skin warm/dry/pink. 15:50 Reassessment: Pt states he wants to go home, Dr. Finley and Dr. Faustin notified. eh3 16:05 Reassessment: Pt decided to stay in hospital rather than leaving AMA. eh3 Vital Signs: 11:45 BP 173 / 66; Pulse 51; Resp 18; Temp 98.5(O); Pulse Ox 96% on R/A; eh3 11:45 BP 160 / 52 RA Sitting (auto/lg); Pulse 59; eh3 11:55 BP 142 / 61 RA Sitting (auto/lg); Pulse 50; eh3 12:15 BP 121 / 104 LA; Pulse 48; Resp 16; Pulse Ox 96% on R/A; eh3 12:45 BP 131 / 55 RA; Pulse 43; Resp 16; Pulse Ox 96% on R/A; eh3 13:15 BP 123 / 56; Pulse 47; Resp 18; Pulse Ox 96% on R/A; eh3 13:45 BP 117 / 53; Pulse 46; Resp 16; Pulse Ox 95% on R/A; eh3 14:15 BP 122 / 54; Pulse 47; Resp 18; Pulse Ox 96% on R/A; eh3 14:45 BP 127 / 54; Pulse 41; Resp 14; Pulse Ox 97% on R/A; eh3 15:15 BP 139 / 68; Pulse 45; Resp 15; Pulse Ox 96% on R/A; eh3 15:45 BP 138 / 62; Pulse 40; Resp 16; Pulse Ox 97% on R/A; eh3 16:15 BP 139 / 61; Pulse 41; Resp 14; Pulse Ox 97% on R/A; eh3 ED Course: 11:35 Patient arrived in ED. rg4 11:36 Luciano Finley MD is Attending Physician. rt 11:41 Florencia Elliott, JOSE DANIEL is Primary Nurse. eh3 11:45 Arm band placed on. eh3 11:45 Missed attempt(s): 20 gauge in right antecubital area. Bleeding controlled, band aid eh3 applied, catheter tip intact. Patient maintains SpO2 saturation greater than 95% on room air. 11:51 Patient has correct armband on for positive identification. Placed in gown. Bed in low mm9 position. Call light in reach. Side rails up X 1. Adult w/ patient. Warm blanket given. Client placed on continuous cardiac and pulse oximetry monitoring. NIBP monitoring applied. environmental monitoring specialist on. Pulse ox on. NIBP on. 11:51 EKG done, by ED staff, reviewed by Luciano Finley MD. mm9 12:12 Chest Single View XRAY In Process Unspecified. EDMS 12:44 Triage completed. eh3 12:50 Inserted saline lock: 22 gauge in left forearm, using aseptic technique. iw 15:05 Domingo Faustin is Hospitalizing Provider. rt 16:31 No provider procedures requiring assistance completed. Patient admitted, IV remains in eh3 place. Administered Medications: 13:18 Drug: Nitroglycerin Sublingual 0.4 mg Route: Sublingual; eh3 13:23 Drug: Nitroglycerin Sublingual 0.4 mg Route: Sublingual; eh3 13:28 Drug: Nitroglycerin Sublingual 0.4 mg Route: Sublingual; eh3 13:42 Follow up: Response: Pain is decreased eh3 Medication: 16:31 VIS not applicable for this client. eh3 Outcome: 15:06 Decision to Hospitalize by Provider. rt 16:31 Admitted to Tele accompanied by tech, family with patient, via wheelchair, room 404, eh3 Report called to Karla 16:31 Condition: stable 16:31 Instructed on the need for admit. 16:32 Patient left the ED. eh3 Signatures: Dispatcher [employer] EDMS Kami Reed, Barb Meza RN rg4 Florencia Elliott RN RN eh3 Martinez, Maria mm9 Luciano Finley MD MD rt Corrections: (The following items were deleted from the chart) 12:44 11:45 Onset of symptoms was April 18, 2023 eh3 eh3 12:47 11:45 Pain: Complains of pain in anterior aspect of left upper chest eh3 eh3 12:47 11:45 Pain: Complains of pain in anterior aspect of left upper chest Pain does not eh3 radiate. Pain currently is 4 out of 10 on a pain scale. at worst was 10 out of 10 on a pain scale. Quality of pain is described as sharp, stabbing, eh3 12:54 12:15 Reassessment: Patient appears in no apparent distress at this time. Patient eh3 and/or family updated on plan of care and expected duration. Pain level reassessed. Patient is alert, oriented x 3, equal unlabored respirations, skin warm/dry/pink. eh3 13:40 13:15 Pain: Complains of pain in anterior aspect of left upper chest Quality of pain is eh3 described as sharp, squeezing, Pain began suddenly, 3 13:42 13:35 Reassessment: Patient states symptoms have improved. Pt does not think the eh3 nitroglycerin helped, pain has been intermittent in days prior as well. 3
--- NOTE | 2023-04-18 15:31 | P.HP ---
Certification for Inpatient Patient admitted to: Observation With expected LOS: <2 Midnights Practitioner: I am a practitioner with admitting privileges, knowledge of patient current condition, hospital course, and medical plan of care. Services: Services provided to patient in accordance with Admission requirements found in Title 42 Section 412.3 of the Code of Federal Regulations Patient History Date of Service: 04/18/23 Reason for admission: Chest pain, bradycardia History of Present Illness: 77-year-old obese man with a history of hypertension presented to the emergency department due to dizziness, chest pain and bradycardia. Patient stated he started experiencing chest pain about 1 week ago. He saw his PCP who prescribed him beta-davide. He reported intermittent chest pain which was worse this morning. Patient described left anterior chest pain radiating to the back, left shoulder. He noted his heart rate was in the 40s which prompted the ED visit. Patient's heart rate was in the 40s in the ED. Initial troponin negative, chest x-ray shows no acute disease, EKG shows bradycardia, no ischemic changes. Patient is placed under observation for ACS rule out and for further management of bradycardia. Allergies No Known Allergies Allergy (Unverified 02/20/20 19:38) Home Medications: Aspirin Chewable [Aspirin Chewable*] 1 tab PO DAILY 02/20/20 Candesartan/Hydrochlorothiazid [Atacand Hct 32-25 mg Tablet] 1 tab PO DAILY 02/20/20 Ciprofloxacin HCl [Cipro 500 MG Tablet] 500 mg PO BID 5 Days #10 tab 02/22/20 metroNIDAZOLE [Flagyl*] 500 mg PO Q8H 5 Days #15 tablet 02/22/20 - Past Medical/Surgical History Diabetic: No -: Hypertension -: umbilical hernia repair 20yrs ago - Family History Mother -: Cancer Father -: Cancer Brother -: Heart disease - Social History Smoking Status: Never smoker Alcohol use: No CD- Drugs: No Caffeine use: No Place of Residence: Home Review of Systems Other: Patient denies shortness of breath or palpitation or orthopnea. He denies any abdominal pain or nausea or vomiting or diarrhea. He denies any fever. Except as documented, all other systems reviewed and negative. Physical Examination - Physical Exam General: Alert, In no apparent distress, Oriented x3 HEENT: Mucous membr. moist/pink Respiratory: Clear to auscultation bilaterally, Normal air movement Cardiovascular: No edema, Regular rate/rhythm, Normal S1 S2, No murmurs Capillary refill: <2 Seconds Gastrointestinal: Normal bowel sounds, Soft and benign, Non-distended, No tenderness Musculoskeletal: No swelling, No tenderness Integumentary: No rashes, No cyanosis Neurological: Normal speech, Normal strength at 5/5 x4 extr, Cranial nerves 3-12 intact Lymphatics: No axilla or inguinal lymphadenopathy - Studies Laboratory Data (last 24 hrs) 04/18/23 12:45: Sodium 140, Potassium 3.9, BUN 13, Creatinine 0.87, Glucose 100, Total Bilirubin 0.4, AST 20, ALT 29, Alkaline Phosphatase 81, Lipase 29 04/18/23 12:45: WBC 7.80, Hgb 13.2 L, Hct 39.6, Plt Count 211 Assessment and Plan - Problems (Diagnosis) (1) Chest pain Current Visit: Yes Status: Acute (2) Hypertension Current Visit: No Status: Acute (3) Sinus bradycardia Current Visit: No Status: Acute - Plan Place patient under observation. Trend troponin Start aspirin No beta-davide due to bradycardia. Patient never had a cardiac work-up. He sees Dr. Clark for well check annually. Obtain stress test. Cardiology consult. Continue home antihypertensives. - Advance Directives Does patient have a Living Will: No Does patient have a Durable POA for Healthcare: No
[2023-04-18 17:03] VITALS: BMI 42.9
[2023-04-18 17:30] LABS: Troponin High Sensitivity 8.1 pg/mL (<58.9)
--- NOTE | 2023-04-18 18:05 | CON ---
Date of Consultation: 04/18/2023 Reason For Consultation: Chest pain. History Of Present Illness: A 77-year-old male with history of hypertension, presented to the emerge ncy room due to chest pain. This started about 1 week ago and also feeling dizzy. His heart rate wa s slow. Was seen by primary care physician and he was put on beta-davide and presented to the emerg ency room when the heart rate was in the low 40s. Past Medical History: As outlined above in the HPI. Medications: Refer to reconciliation sheet for detailed list. Allergies: NO KNOWN DRUG ALLERGIES. Family History: No premature coronary artery disease or cancer. Social History: He does not smoke or drink. Does not use any drugs. Review of Systems: All systems reviewed and they were negative except what mentioned in HPI. Physical Examination: Vital Signs: Reviewed. Head and Neck: Pupils are equal, reactive to light. Intact eye movements. No JVD. No cervical lym phadenopathy. Neck is supple. Thyroid is not enlarged. Lungs: Clear to auscultation bilaterally. No rhonchi, wheezing, or crackles. No accessory muscle u se. Heart: Regular rate and rhythm. No extra sounds. Abdomen: Soft, nontender. Bowel sounds positive. No organomegaly. No masses or hernia. No rigidi ty or rebound. Extremities: No edema, clubbing, or cyanosis. Intact pulses. Skin: No rash. Neurologic: Alert, awake, oriented x3. No acute focal deficits appreciated. Lymph Nodes: No cervical or axillary lymphadenopathy. Investigations: First troponin is negative. BUN 13, creatinine 0.87, hemoglobin 13.2. Assessment And Recommendations: 1.Chest pain. First troponin is negative. Continue baby aspirin 81 mg daily and recommend to do a stress test in the morning and an echo to further evaluate and plan accordingly. 2.Bradycardia, probably medication induced. Keep off the beta-davide and monitor the heart rate. I will discontinue the metoprolol and just keep the patient on baby aspirin pending the stress test. SR/MODL Voice ID: [id number] Report ID: [id number]
[2023-04-19 01:17] LABS: Hematocrit 39.1 % (39.6-49.0); Lymphocytes % 23.9 % (15.3-44.8); MCV 87.6 fL (80-100); MPV 8.8 fL (7.6-11.3); RBC Red Blood Cell Count 4.46 M/uL (4.33-5.43)
[2023-04-19 01:50] LABS: Potassium 3.5 mEq/L (3.5-5.1)
[2023-04-19 05:40] VITALS: O2SAT 97
[2023-04-19] MEDS ORDERED: ASPIRIN EC 81 MG TAB PO SCH (09:00)
[2023-04-19] MEDS ORDERED: VALSARTAN 160 MG TAB PO SCH (09:00)
[2023-04-19] MEDS ORDERED: CANDESARTAN PO SCH (09:00)
[2023-04-19] MEDS ORDERED: TAMSULOSIN 0.4 MG SR CAP PO SCH (09:00)
[2023-04-19] MEDS ORDERED: ENOXAPARIN 40 MG/0.4 ML SQ SCH (09:00)
[2023-04-19] MEDS ORDERED: HYDROCHLOROTHIAZID PO SCH (09:00)
[2023-04-19] MEDS ORDERED: hydroCHLOROthiazide 25 MG TAB PO SCH (09:00)
[2023-04-19] MEDS ORDERED: REGADENOSON 0.4 MG/5 ML SYR IV ONE (11:00)
--- NOTE | 2023-04-19 11:46 | P.DS ---
Admission Date: 04/18/23 Discharge Date: 04/19/23 Disposition: ROUTINE DISCHARGE Discharge Condition: FAIR Reason for Admission: Chest pain, bradycardia - Problems (1) Chest pain Current Visit: Yes Status: Acute (2) Hypertension Current Visit: No Status: Acute (3) Sinus bradycardia Current Visit: No Status: Acute Brief History of Present Illness: 77-year-old obese man with a history of hypertension presented to the emergency department due to dizziness, chest pain and bradycardia. Patient stated he started experiencing chest pain about 1 week ago. He saw his PCP who prescribed him beta-davide. He reported intermittent chest pain which was worse this morning. Patient described left anterior chest pain radiating to the back, left shoulder. He noted his heart rate was in the 40s which prompted the ED visit. Patient's heart rate was in the 40s in the ED. Initial troponin negative, chest x-ray shows no acute disease, EKG shows bradycardia, no ischemic changes. Patient was placed under observation for ACS rule out and for further management of bradycardia. Hospital Course: Troponin trended negative. Patient was chest pain-free during the hospital stay. He remained bradycardic with heart rate in the 40s overnight. Patient was also complaining of pain at the back of the neck radiates into the left shoulder. Nuclear stress test done. ACS ruled out. Patient bradycardia less likely secondary to nebivolol use which has been discontinued. Patient with stable vitals. He is deemed stable for discharge. Vital Signs/Physical Exam: Temp Pulse Resp BP Pulse Ox 97.9 F 94 H 16 144/65 H 94 04/19/23 08:00 04/19/23 08:33 04/19/23 08:00 04/19/23 08:33 04/19/23 08:00 General: Alert, In no apparent distress, Oriented x3 HEENT: Mucous membr. moist/pink Neck: JVD not distended Respiratory: Clear to auscultation bilaterally, Normal air movement Cardiovascular: No edema, Regular rate/rhythm, Normal S1 S2 Gastrointestinal: Soft and benign, Non-distended Musculoskeletal: No swelling Integumentary: No rashes Neurological: Normal strength at 5/5 x4 extr Laboratory Data at Discharge: WBC 8.40 thou/uL (4.3-10.9) 04/19/23 00:44 Hgb 12.9 g/dL (13.6-17.9) L 04/19/23 00:44 Hct 39.1 % (39.6-49.0) L 04/19/23 00:44 Plt Count 204 thou/uL (152-406) 04/19/23 00:44 Sodium 138 mEq/L (136-145) 04/19/23 00:44 Potassium 3.5 mEq/L (3.5-5.1) 04/19/23 00:44 BUN 14 mg/dL (7-18) 04/19/23 00:44 Creatinine 0.88 mg/dL (0.70-1.30) 04/19/23 00:44 Glucose 104 mg/dL (74-106) 04/19/23 00:44 Total Bilirubin 0.4 mg/dL (0.2-1.0) 04/18/23 12:45 AST 20 U/L (15-37) 04/18/23 12:45 ALT 29 U/L (16-61) 04/18/23 12:45 Alkaline Phosphatase 81 U/L (45-117) 04/18/23 12:45 Triglycerides 144 mg/dL (<150) 04/18/23 17:04 Cholesterol 164 mg/dL (<200) 04/18/23 17:04 HDL Cholesterol 41 mg/dL (40-60) 04/18/23 17:04 Cholesterol/HDL Ratio 4.00 04/18/23 17:04 Lipase 29 U/L (13-75) 04/18/23 12:45 Home Medications: Aspirin Chewable [Aspirin Chewable*] 1 tab PO DAILY 02/20/20 Candesartan/Hydrochlorothiazid [Atacand Hct 32-25 mg Tablet] 1 tab PO DAILY 02/20/20 Tamsulosin HCl [Flomax] 0.4 mg PO BID 04/18/23 Diet: AHA Activity: Ad mirza Followup: Michael San MD [Primary Care Provider] - 1-2 Weeks Time spent managing pt's care (in minutes): 31
--- NOTE | 2023-04-19 14:06 | P.PN ---
Subjective Date of Service: 04/19/23 Chief Complaint: Chest pain, bradycardia Patient reports pain in the back of the neck, radiating to the left shoulder. Heart rate was in the 40s overnight. He denies any palpitation. Physical Examination - Vital Signs Temperature: 97.6 F Blood Pressure: 148/66 Pulse: 39 Respirations: 16 Pulse Ox (%): 98 - Physical Exam General: Alert, In no apparent distress, Oriented x3, Obese HEENT: Mucous membr. moist/pink Neck: JVD not distended Respiratory: Clear to auscultation bilaterally, Normal air movement Cardiovascular: No edema, Normal S1 S2, Other (Regular, bradycardic.) Gastrointestinal: Normal bowel sounds, Soft and benign, Non-distended, No tenderness Musculoskeletal: No swelling Integumentary: No rashes, No cyanosis Neurological: Normal strength at 5/5 x4 extr Assessment And Plan - Current Problems (Diagnosis) (1) Chest pain Current Visit: Yes Status: Acute (2) Hypertension Current Visit: No Status: Acute (3) Sinus bradycardia Current Visit: No Status: Acute - Plan Troponin trended flat. No ACS. Continue aspirin No beta-davide due to bradycardia. Patient never had a cardiac work-up. He sees Dr. Clark for well check annually. Nuclear stress test is pending Cardiology-Dr. Stephens input appreciated Continue home antihypertensives. Echocardiogram result is pending. Further management pending nuclear stress test and echocardiogram results.
--- NOTE | 2023-04-19 14:51 | RAD REPORT ---
EXAM DESCRIPTION: NM - Rest Stress Cardiac Imaging - 04/19/2023 2:41 pm CLINICAL HISTORY: Chest pain, bradycardia Chest pain. COMPARISON: <Comparisons> TECHNIQUE: The patient was administered approximately 10mCi of Tc 99m Sestamibi prior to resting SPE CT imaging of the heart. The patient was then administered approximately 30 mCi of Tc 99m Sestamibi f ollowing exercise or pharmacologic stress. Multiplanar SPECT images were reviewed. FINDINGS: Moderate fixed defect is noted involving the LV apex. This is presumably related to previo us infarct. No stress-induced ischemic defect seen. The end diastolic volume is 163 ml, the end systolic volume is 69 ml, and the ejection fraction is 58 %. 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 No finding to suspect stress-induced ischemia.
[2023-04-19 16:12] VITALS: BP 142/65; TEMP 97.8
--- NOTE | 2023-04-20 08:49 | ECHO ---
HEIGHT: 5 ft 11 in WEIGHT: 308 lb 0 oz DATE OF STUDY: 04/19/[address]: Domingo Faustin MD 2-DIMENSIONAL: YES M.MODE: YES DOPPLER: YES COLOR FLOW: YES TDS: PORTABLE: YES DEFINITY: BUBBLE STUDY: DIAGNOSIS: CHEST PAIN, BRADYCARDIA CARDIAC HISTORY: CATHERIZATION: SURGERY: PROSTHETIC VALVE: PACEMAKER: MEASUREMENTS (cm) DIASTOLIC (NORMALS) SYSTOLIC (NORMALS) IVSd 1.0 (0.6-1.2) LA Diam 3.8 (1.9-4.0) LVEF 66% LVIDd 4.4 (3.5-5.7) LVIDs 2.8 (2.0-3.5) %FS 36% LVPWd 1.1 (0.6-1.2) Ao Diam 2.9 (2.0-3.7) 2 DIMENSIONAL ASSESSMENT: RIGHT ATRIUM: NORMAL LEFT ATRIUM: NORMAL RIGHT VENTRICLE: NORMAL LEFT VENTRICLE: NORMAL TRICUSPID VALVE: NORMAL MITRAL VALVE: NORMAL PULMONIC VALVE: NORMAL AORTIC VALVE: NORMAL PERICARDIAL EFFUSION: NONE AORTIC ROOT: NORMAL LEFT VENTRICULAR WALL MOTION: NORMAL DOPPLER/COLOR FLOW: NORMAL COMMENTS: 1. NORMAL 2-DIMENSIONAL ECHOCARDIOGRAM WITH DOPPLER. 2. NO WALL MOTION ABNORMALITY 3. NO EFFUSION TECHNOLOGIST: WILLIAMS FAGAN
--- NOTE | 2023-04-20 09:38 | TREADPHA ---
DX: CHEST PAIN Date of Study: 04/19/2023 Ht: 5' 11 " Wt: 308 lb 0 oz Consulting Physician: EDVIN MEDICATIONS: ASPIRIN, LOVENOX, NITROSTAT HISTORY: 77 YEAR OLD MALE WITH ATYPICAL CHEST PAIN PHYSICIAL EXAMINATION: RESTING B.P.: 129/57 RESTING H.R.: 47 RESTING EKG: SINUS BRADYCARDIA, PREMATURE COMPLEXES PROTOCOL: PHARMACOLOGIC EXERCISE TIME: 3:30 B.P. AT PEAK STRESS: 121/53 IMPRESSION: LEXISCAN INJECTED. CARDIOLITE INJECTED (SEE NUCLEAR MEDICINE REPORT). NO COMPLAINTS OF CHEST PAIN OR SHORTNESS OF BREATH. NO VENTRICULAR TACHYCARDIA, SUPRAVENTRICULAR TACHYCARDIA. BRADYCARDIA THROUGHOUT TEST.
== END 2023-04-19 16:09 | disposition home or self-care (01) ==
LOC: ER 11:33 → ERHOLD 15:13 → 4TH 16:17
PROVIDERS: ADMIT Internal Medicine; ATTEND Internal Medicine
DX: R07.9 Chest pain, unspecified (principal); I10 Essential (primary) hypertension; R00.1 Bradycardia, unspecified; M54.2 Cervicalgia
CPT/HCPCS: 93017; 93306; 85025 ×2; 80048; 36415; 80061; 84484 ×4; 83690; 80053; 71045; 78452; J2785; A9500; 93005; G0378

== ENCOUNTER 2023-06-24 10:17 | Observation (INO) | payer OTHER, MEDICARE ==
--- OUTSIDE RECORDS SUMMARY | 2023-06-24 10:21 | XMS REPORT | Clinical Summary ---
:1945 Author Organization [facility] MD [facility] Address [address] [place] [address] Care Team Providers Name Role Phone Domingo Preston APRN Primary Care Provider Allergies No known active [...] Team Description 11/11/2022 Telemedicine Urology Domingo Preston APRN Renal mas s 11/10/2022 Ancillary Procedure Radiology Domingo Preston APRN Re nal mass 11/10/2022 Travel after 06/24/2022 Surgical History Surgery Date Site/Laterality Comments UMBILICAL [...] Comments Blood Pressure 144/56 11/10/2022 12:05 PM PLASTER MOLD MAKER Pulse 58 11/10/2022 12:05 PM PLASTER MOLD MAKER Temperature - - Respiratory Rate 18 11/10/2022 12:05 PM PLASTER MOLD MAKER Oxygen Saturation 97% 11/10/2022 12:05 PM PLASTER MOLD MAKER Inhaled Oxygen Concentration - - Weight 142.5 kg (314 lb 2.5 oz) 11/10/2022 9:47 AM PLASTER MOLD MAKER Height 179 cm (5' 10.47") 11/10/2022 9:47 AM PLASTER MOLD MAKER Body Mass Index 44.47 11/10/2022 9:47 AM PLASTER MOLD MAKER Plan of Treatment Date Type Specialty Care Team Description 11/08/2023 Lab Lab Kalen Mota MD [address], [place] [address] (Wo rk) 11/08/2023 Ancillary Procedure Radiology Jovita Mota MD [address] [place], [place] [address] (Wo rk) 11/09/2023 Telemedicine Urology Kalen Mota MD [address] [place], [place] [address] (Wo rk) Health Maintenance Due Date Last Done Comments COVID-19 Vaccination (4 - Pfizer 10/22/2021 08/27/2021, , series) 01/22/2021 Procedures Procedure Name Priority Date/Time Associated Comments Diagnosis CT ABDOMEN W WO CONTRAST Routine 11/10/2022 11:55 Renal mass Results for this AM PLASTER MOLD MAKER procedure are i n the results section. FRACTIONATED BILIRUBIN Routine 11/10/2022 8:44 Renal mass Re sults for this AM P[employer]ER MOLD MAKER procedure are i n the results section. TOTAL PROTEIN Routine 11/10/2022 8:44 Renal mass Results for this AM PLASTER MOLD MAKER procedure are i n the results section. ASPARTATE Routine 11/10/2022 8:44 Renal mass Results for this AMINOTRANSFERASE AM PLASTER MOLD MAKER procedure a re in the results section. ALANINE AMINOTRANSFERASE Routine 11/10/2022 8:44 Renal mass Results for this AM PLASTER MOLD MAKER procedure are i n the results section. ALKALINE PHOSPHATASE Routine 11/10/2022 8:44 Renal mass Resu lts for this AM PLASTER MOLD MAKER procedure are i n the results section. ALBUMIN LEVEL Routine 11/10/2022 8:44 Renal mass Results for this AM P[employer]ER MOLD MAKER procedure are i n the results section. CALCIUM LEVEL TOTAL Routine 11/10/2022 8:44 Renal mass Resul ts for this AM PLASTER MOLD MAKER procedure are i n the results section. .GLOMERULAR FILTRATION Routine 11/10/2022 8:44 Renal mass Re sults for this RATE AM PLASTER MOLD MAKER procedure are i n the results section. SERUM CREATININE Routine 11/10/2022 8:44 Renal mass Results for this AM P[employer]ER MOLD MAKER procedure are i n the results section. ELECTROLYTE PANEL Routine 11/10/2022 8:44 Renal mass Results for this AM P[employer]ER MOLD MAKER procedure are i n the results section. BLOOD UREA NITROGEN Routine 11/10/2022 8:44 Renal mass Resul ts for this AM P[employer]ER MOLD MAKER procedure are i n the results section. GLUCOSE LEVEL Routine 11/10/2022 8:44 Renal mass Results for this AM PLASTER MOLD MAKER procedure are i n the results section. MANUAL DIFFERENTIAL Routine 11/10/2022 8:44 Renal mass Resul ts for this AM PLASTER MOLD MAKER procedure are i n the results section. Results CBC Routine 11/10/2022 8:44 Renal mass Results for this AM PLASTER MOLD MAKER procedure are i n the results section. COMPREHENSIVE METABOLIC Routine 11/10/2022 8:44 Renal mass PANEL AM PLASTER MOLD MAKER COMPLETE BLOOD COUNT W/ Routine 11/10/2022 8:44 Renal mass DIFFERENTIAL AM PLASTER MOLD MAKER after 06/24/[address] Abdomen with and without Contrast (11/10/2022 11:55 AM PLASTER MOLD MAKER) Anatomical Region Laterality Modality Abdomen Computed Tomography Specimen (Source) Anatomical Collection Method Collection Time Re ceived Time Location / / Volume Laterality 11/10/2022 3:06 PM PLASTER MOLD MAKER Impressions 11/10/2022 3:17 PM PLASTER MOLD MAKER Grossly stable appearance of the 1 cm he terogenous cystic lesion in the left kidney, to be closely monitored to exclude small renal neoplasm. Similarly, there are a few other tiny, too small to characte rize subcentimeter renal hypodensities. Recommend continued close monitoring. Narrative 11/10/2022 3:17 PM PLASTER MOLD MAKER Examination: CT ABDOMEN W WO CONTRAST, 1 [...] Recom mend continued close monitoring. Domingo Preston APRN IMG CT ORDERABLES .Serum Creatinine (11/10/2022 8:44 AM PLASTER MOLD MAKER) athologist Signature Creatinine 0.81 0.67 - 1.17 [place] mg/dL Comment: Testing performed at [facility], [address] [place] [address] Specimen Anatomical Collection Method Collection Time Receive d Time (Source) Location / / Volume Laterality Blood 11/10/2022 8:44 AM 9:08 PLASTER MOLD MAKER AM PLASTER MOLD MAKER Domingo Preston APRN LAB BLOOD ORDERABLES Performing Organization Address City/State/[place] [address] [place] [address] .CBC (11/10/2022 8:44 AM PLASTER MOLD MAKER) athologist Signature WBC 8.8 4.0 - 11.0 [place] K/uL Comment: All components of the CBC perfo rmed at [facility], [address] [place] [address] 7757 33 RBC 4.93 4.50 - 6.00 M/uL [place] Comment: All components of the CBC perfo rmed at [facility], [address] [place] [address] 7757 3 Hgb 14.6 14.0 - 18.0 gm/dL [place] Comment: As part of CBC or as an individ ual orderable testing performed at [facility], [address] [place] [address] Hct 43.6 40.0 - 54.0 % [place] Comment: As part of CBC testing performe d at [facility], [address] [place] [address] 90055 MCV 88 82 - 98 fL [place] Comment: As part of CBC testing performe d at [facility], [address] [place] [address] 75566 MCH 29.6 27.0 - 31.0 pg [place] Comment: As part of CBC testing performe d at [facility], [address] [place] [address] 55409 MCHC 33.5 31.0 - 36.0 gm/dL [place] Comment: As part of CBC testing performe d at [facility], [address] [place] [address]15 RDW-SD 42.6 35.1 - 46.3 fL [place] Comment: As part of CBC testing performe d at [facility], [address] [place] [address], [place] [address] RDW-CV 13.0 12.0 - 15.5 % [place] Comment: As part of CBC testing performe d at [facility], [address] [place] [address], [place] [address] Platelet count 228 140 - 440 K/uL [facility] Y Comment: As part of CBC or an individual orderable testing performed at [facility], [address] [place] [address]019 MPV 9.6 4.0 - 10.4 fL [place] Comment: As part of CBC testing performe d at [facility], [address] [place] [address] 11920 Specimen Anatomical Collection Method Collection Time Receive d Time (Source) Location / / Volume Laterality Blood 11/10/2022 8:44 AM 9:08 PLASTER MOLD MAKER AM PLASTER MOLD MAKER Domingo Preston APRN LAB BLOOD ORDERABLES Performing Organization Address City/State/ZIP Code Phon e Number [place], [place] [address] [place] [address] Glomerular Filtration Rate (11/10/2022 8:44 AM PLASTER MOLD MAKER) P athologist Signature eGFR 91 >=60 [place] mL/min/1.73 sq. m Comment: The eGFRcr is [...] fulfill criteria for CKD. Testing performed at [facility], [address] [place] [address] Specimen Anatomical Collection Method Collection Time Receive d Time (Source) Location / / Volume Laterality Blood 11/10/2022 8:44 AM 9:08 PLASTER MOLD MAKER AM PLASTER MOLD MAKER Domingo Preston APRN LAB BLOOD ORDERABLES Performing Organization Address City/State/[place] [address] [place] [address] Fractionated Bilirubin (11/10/2022 8:44 AM PLASTER MOLD MAKER) athologist Signature Bili Total 0.5 <=1.2 mg/dL [place] Comment: Indocyanine Green (ICG) may cause falsel y elevated bilirubin results. Total and direct bilirubin must not be measured from samples containing indocyanine green. False elevation of total bilirubin can b e seen in patients with IgG concentrations above 28 g/L. Testing performed at [facility], [address] [place] [address] Bili Direct <0.2 <=0.3 mg/dL [place] Comment: Indocyanine Green (ICG) may cause falsel y elevated bilirubin results. Total and direct bilirubin must not be measured from samples containing indocyanine green. Testing performed at [facility], [address] [place] [address] Bili Indirect See Note 0.0 - 0.9 mg/dL [facility] Y Comment: Unable to calculate Indirect Bilirubin r esult due to some parameters are outside reportable range Testing performed at [facility], [address] [place] [address] Specimen Anatomical Collection Method Collection Time Receive d Time (Source) Location / / Volume Laterality Blood 11/10/2022 8:44 AM 9:08 PLASTER MOLD MAKER AM PLASTER MOLD MAKER Domingo Preston CUSTOMER MANAGER LAB BLOOD ORDERABLES Performing Organization Address City/State/[place] [address] [place] [address] (ABNORMAL) Differential (11/10/2022 8:44 AM PLASTER MOLD MAKER) athologist Signature Neutrophil % 64.8 42.0 - 66.0 [place] % Comment: All components of the Different ial performed at [facility], [address] [place] [address] Lymphocyte % 21.1 (L) 24.0 - 44.0 % [place] Comment: As part of the Differential satish ting performed at [facility], [address] [place] [address]67[address] Monocyte % 10.9 (H) 2.0 - 7.0 % [place] Comment: As part of the Differential satish ting performed at [facility], [address] [place] [address] Eosinophil % 2.5 1.0 - 4.0 % [place] Comment: As part of the Differential satish ting performed at [facility], [address] [place] [address]36 Basophil % 0.6 0.0 - 1.0 % [place] Comment: As part of the Differential satish ting performed at [facility], [address] [place] [address] 25728 IGRE % 0.1 0.0 - 0.4 % [place] Comment: IGRE % count includes Metamyelocytes, My elocytes, and Promyelocytes. As part of the Differential testing perf ormed at [facility], [address] [place] [address] 28898 Neutrophil Abs 5.68 1.70 - 7.30 K/uL [facility] Comment: As part of the Differential satish ting performed at [facility], [address] [place] [address]372 Lymphocyte Abs 1.85 1.00 - 4.80 K/uL [facility] Comment: As part of the Differential satish ting performed at [facility], [address] [place] [address] 82032 Monocyte Abs 0.96 (H) 0.08 - 0.70 K/uL [facility] Comment: As part of the Differential satish ting performed at [facility], [address] [place] [address] 71598 Eosinophil Abs 0.22 0.04 - 0.40 K/uL [facility] Comment: As part of the Differential satish ting performed at [facility], [address] [place] [address] Basophil Abs 0.05 0.00 - 0.10 K/uL [facility] Comment: As part of the Differential satish ting performed at [facility], [address] [place] [address] IG Abs 0.01 0.00 - 0.04 K/uL [place] Comment: As part of the Differential satish ting performed at [facility], [address] [place] [address] 865[address] Specimen Anatomical Collection Method Collection Time Receive d Time (Source) Location / / Volume Laterality Blood 11/10/2022 8:44 AM 2 9:08 PLASTER MOLD MAKER AM PLASTER MOLD MAKER Domingo Preston CUSTOMER MANAGER LAB BLOOD ORDERABLES Performing Organization Address City/State/ZIP Code Phon e Number [place], [place] [address] [place] [address] BUN (11/10/2022 8:44 AM PLASTER MOLD MAKER) P athologist Signature BUN 14 6 - 23 mg/dL [place] Comment: Testing performed at [facility], [address] [place] [address] Specimen Anatomical Collection Method Collection Time Receive d Time (Source) Location / / Volume Laterality Blood 11/10/2022 8:44 AM 2 9:08 PLASTER MOLD MAKER AM PLASTER MOLD MAKER Domingo Preston CUSTOMER MANAGER LAB BLOOD ORDERABLES Performing Organization Address City/[facility]/ZIP Code Phon e Number [place], [place] [address] [place] [address] ALT (11/10/2022 8:44 AM PLASTER MOLD MAKER) athologist Signature ALT 27 <=41 U/L [place] Comment: Testing performed at [facility], [address] [place] [address]169 Specimen Anatomical Collection Method Collection Time Receive d Time (Source) Location / / Volume Laterality Blood 11/10/2022 8:44 AM 2 9:08 PLASTER MOLD MAKER AM PLASTER MOLD MAKER Domingo Preston CUSTOMER MANAGER LAB BLOOD ORDERABLES Performing Organization Address City/[facility]/ZIP Code Phon e Number [place], [place] [address] [place] [address] Aspartate Aminotransferase (11/10/2022 8:44 AM PLASTER MOLD MAKER) athologist Signature AST 32 <=40 U/L [place] Comment: Testing performed at [facility], [address] [place] [address]64 Specimen Anatomical Collection Method Collection Time Receive d Time (Source) Location / / Volume Laterality Blood 11/10/2022 8:44 AM 2 9:08 PLASTER MOLD MAKER AM PLASTER MOLD MAKER Domingo Preston CUSTOMER MANAGER LAB BLOOD ORDERABLES Performing Organization Address City/[facility]/ZIP Code Phon e Number [place], [place] [address] [place] [address] Total Protein (11/10/2022 8:44 AM PLASTER MOLD MAKER) athologist [facility] Total Protein 7.3 6.4 - 8.3 [place] g/dL Comment: Testing performed at [facility], [address] [place] [address] Specimen Anatomical Collection Method Collection Time Receive d Time (Source) Location / / Volume Laterality Blood 11/10/2022 8:44 AM 2 9:08 PLASTER MOLD MAKER AM PLASTER MOLD MAKER Domingo Preston CUSTOMER MANAGER LAB BLOOD ORDERABLES Performing Organization Address City/[facility]/ZIP Code Phon e Number [place], [place] [address] [place] [address] Alkaline Phosphatase (11/10/2022 8:44 AM PLASTER MOLD MAKER) athologist Signature Alk Phos 87 40 - 129 U/L [place] Comment: Testing performed at [facility], [address] [place] [address]60 Specimen Anatomical Collection Method Collection Time Receive d Time (Source) Location / / Volume Laterality Blood 11/10/2022 8:44 AM 2 9:08 PLASTER MOLD MAKER AM PLASTER MOLD MAKER Domingo Preston JACLYN LAB BLOOD ORDERABLES Performing Organization Address City/State/[place] [address] [place] [address] (ABNORMAL) Glucose Level (11/10/2022 8:44 AM PLASTER MOLD MAKER) athologist Signature Glucose Level 117 (H) 70 - 99 [place] mg/dL Comment: Effective 06/24/16, the glucose reference intervals have been updated based on [place] [employer] guidelines (Standards of Medical Care in Diabetes 2016. Diabetes Care 2016; 39: S13-S22). Fasting blood glucose: Normal: 70-99 mg/dL Impaired fasting glucose (increased risk for diabetes or pre-diabetes): 100- 125 mg/dL Diabetes mellitus: >/=126 mg/dL Random blood glucose: Normal: 70-199 mg/dL Note: Random glucose >100 mg/dL is assoc iated with increased risk for diabetes Testing performed at [facility], [address] [place] [address]803 Specimen Anatomical Collection Method Collection Time Receive d Time (Source) Location / / Volume Laterality Blood 11/10/2022 8:44 AM 2 9:08 PLASTER MOLD MAKER AM PLASTER MOLD MAKER Domingo Preston JACLYN LAB BLOOD ORDERABLES Performing Organization Address City/State/[place] [address] [place] [address] Calcium Level (11/10/2022 8:44 AM PLASTER MOLD MAKER) athologist Signature Calcium Lvl 9.4 8.4 - 10.2 [place] mg/dL Comment: Testing performed at [facility], [address] [place] [address] 99258 Specimen Anatomical Collection Method Collection Time Receive d Time (Source) Location / / Volume Laterality Blood 11/10/2022 8:44 AM 2 9:08 PLASTER MOLD MAKER AM PLASTER MOLD MAKER Domingo Preston CUSTOMER MANAGER LAB BLOOD ORDERABLES Performing Organization Address City/State/ZIP Code [place] [address] [place] [address] Albumin Level (11/10/2022 8:44 AM PLASTER MOLD MAKER) athologist Signature Albumin Lvl 4.4 3.5 - 5.2 [place] gm/dL Comment: Testing performed at [facility], [address] [place] [address] 04180 Specimen Anatomical Collection Method Collection Time Receive d Time (Source) Location / / Volume Laterality Blood 11/10/2022 8:44 AM 2 9:08 PLASTER MOLD MAKER AM PLASTER MOLD MAKER Domingo Preston CUSTOMER MANAGER LAB BLOOD ORDERABLES Performing Organization Address City/[facility] [place] [address] [place] [address] Electrolyte Panel (11/10/2022 8:44 AM PLASTER MOLD MAKER) athologist Signature Sodium Lvl 141 136 - 145 [place] mEq/L Comment: Testing performed at [facility], [address] [place] [address] Potassium Lvl 3.9 3.5 - 5.1 mEq/L [facility] Comment: Testing performed at [facility], [address] [place] [address] 33093 Chloride 106 98 - 107 mEq/L [place] Comment: Testing performed at [facility], [address] [place] [address]80 CO2 23 22 - 29 mEq/L [place] Comment: Testing performed at [facility], [address] [place] [address]105 Anion Gap 12 4 - 14 mEq/L [place] Comment: Testing performed at [facility], [address] [place] [address]016 Specimen Anatomical Collection Method Collection Time Receive d Time (Source) Location / / Volume Laterality Blood 11/10/2022 8:44 AM 9:08 PLASTER MOLD MAKER AM PLASTER MOLD MAKER Domingo Preston APRN LAB BLOOD ORDERABLES Performing Organization Address City/State/ZIP Code Phon e Number [facility] [place] [address] [address] [facility] after 06/24/2022 Insurance Payer Benefit Plan Subscriber ID Effective Phone Address Typ e / Group Dates MEDICARE MEDICARE PART [id number] 2010-Pres [phone] [place] Medicare A AND B ent [id number] [employer] [address] [place] [address] [place] [employer] [id number] 2019-Pres [address] [employer] ONLY ent [id number] [place] [address] Care Teams Emergency Department Technician Relationship Specialty Start Date End Date Domingo Preston APRN PCP - General 03/24/[address] [place] [address]
--- OUTSIDE RECORDS SUMMARY | 2023-06-24 10:22 | XMS REPORT | Continuity of Care Document ---
:1945 Author Organization [facility] t Address [address] [facility] [address] [place] [address] Care Team Providers Name Role Phone Domingo Preston APN Primary Care Physician Vahe Winter MD Attending Clinician [phone] Deanne Foley MA Attending Clinician Unavailable Deandre Mccray Attending Clinician Rose Venegas APRN Attending Clinician Domingo Preston APN Attending Clinician BIANCA PRESTON Attending Clinician Unavailable FORTINO RODRIGUEZ Attending Clinician Unavailable JORGITO MCKAY Attending Clinician Unavailable JORGITO CRESPO Attending Clinician Unavailable VAHE WINTER Admitting Clinician Unavailable Payers Payer Name Policy Type Policy Number Effective Date Expiration Date S ource Problems Condition Condition Condition Status Onset Resolution [...] Source Natural mother Breast cancer [facility] Natural sister Pancreatic cancer [facility] Natural brother Melanoma [facility] Natural father Brain cancer [facility]i ty [facility] Social History Social Habit Start Date Stop Date Quantity Comments Source Gender identity 2022-02-12 Identifies as male M ethodist 12:36:15 gender (finding) Hospital Sexual orientation 2022-02-12 Heterosexual Meth odist 12:36:15 (finding) Hospital History of tobacco Cigarette Smoker Buddhism use Hospital Alcohol intake 2023-01-12 2023-01-12 Lifetime Buddhism 00:00:00 00:00:00 non-drinker Hospital (finding) History of Social 2023-01-12 2023-01-[address] function 00:00:00 00:00:00 Hospital Tobacco use and 2023-01-06 2023-01-06 Smokeless tobacco [facility] exposure 00:00:00 00:00:00 non-user Hospital Sex Assigned At [birth year] KASEY Peacock 00:00:00 00:00:00 [facility] Center Smoking Status Start Date Stop Date Source Ex-smoker 2023-01-06 00:00:00 2023-01-06 00:00:00 [facility] Medications Ordered Filled Start Stop Current Ordering Indication Dosage Frequency Signature Comments Components Source Medication Medication Date Date Medication? Clinician (SIG) Name Name tamsulosin Yes TAKE 2 Metho di (FLOMAX) 5-08 CAPSULES(0 st 0.4 mg 00:00: .8 MG) BY Hospit a capsule 00 MOUTH l DAILY tamsulosin Yes TAKE 2 Metho di (FLOMAX) 5-08 CAPSULES(0 st 0.4 mg 00:00: .8 MG) BY Hospit a capsule 00 MOUTH l DAILY tamsulosin 2022- No .8mg QD Take 2 Meth tomas (FLOMAX) 5-03 05-[address] 0.4 mg 00:00: 00:00 (0.8 mg Hospita capsule 00 :00 total) by l mouth daily for 90 days. tamsulosin 2022-0 202- No .8mg QD Take 2 Meth tomas (FLOMAX) 5-03 05-[address] 0.4 mg 00:00: 00:00 (0.8 mg Hospita capsule 00 :00 total) by l mouth daily for 90 days. ciprofloxac Yes 250mg Q.5D Take 1 Met hodi in HCl 3-[address] (CIPRO) 250 00:00: (250 mg Hos ron MG tablet 00 total) by l mouth 2 (two) times a day. ciprofloxac 2023-0 Yes 250mg Q.5D Take 1 Met hodi in HCl 3-[address] (CIPRO) 250 00:00: (250 mg Hos ron MG tablet 00 total) by l mouth 2 (two) times a day. candesartan 2023-0 Yes 32mg QD Take 1 Meth tomas (ATACAND) 2-14 tablet (32 st 32 MG 12:03: mg total) Hospita tablet 57 by mouth l daily. aspirin 2023-0 Yes 81mg QD Take 1 Methodi (ECOTRIN) 2-14 tablet (81 st 81 MG 12:03: mg total) Hospita enteric 57 by mouth l coated daily. tablet Last dose 12/23/2022 candesartan 3-0 Yes 32mg QD Take 1 Meth tomas (ATACAND) 2-14 tablet (32 st 32 MG 12:03: mg total) Hospita tablet 57 by mouth l daily. aspirin 3-0 Yes 81mg QD Take 1 Methodi (ECOTRIN) 2-14 tablet (81 st 81 MG 12:03: mg total) Hospita enteric 57 by mouth l coated daily. tablet Last dose 12/23/2022 docusate 3-0 2023- No 100mg Q.5D Take 1 Metho di sodium 2-14 03-[address] (Colace) 00:00: 04:59 (100 mg Hospi ta 100 MG 00 :00 total) by l capsule mouth 2 (two) times a day for 30 days. docusate 2023-0 2023- No 100mg Q.5D Take 1 Metho di sodium 2-14 03-[address] (Colace) 00:00: 04:59 (100 mg Hospi ta 100 MG 00 :00 total) by l capsule mouth 2 (two) times a day for 30 days. phenazopyri 2023-0 2023- No 100mg Q.[id number] Take 1 Methodi dine 2-14 - [id number] tablet st (Pyridium) 00:00: 05:59 3D (100 mg Hos ron 100 MG 00 :00 total) by l tablet mouth 3 (three) times a day as needed for bladder spasms (dysuria) for up to 10 days. phenazopyri 2022-0 2022- No 100mg Q.[id number] Take 1 Methodi dine 01-[id number] (Pyridium) 00:00: 05:59 3D (100 mg Hos ron 100 MG 00 :00 total) by l tablet mouth 3 (three) times a day as needed for bladder spasms (dysuria) for up to 10 days. nitrofurant 2022-0 2022- No 100mg Q.5D Take 1 Me thodi oin, 01-[address] macrocrysta 00:00: 05:59 (100 mg Ho spita l-monohydra 00 :00 total) by l te, mouth 2 (Macrobid) (two) 100 MG times a capsule day for 5 days. nitrofurant 2022-0 2022- No 100mg Q.5D Take 1 Me thodi oin, 01-[address] macrocrysta 00:00: 05:59 (100 mg Ho spita l-monohydra 00 :00 total) by l te, mouth 2 (Macrobid) (two) 100 MG times a capsule day for 5 days. sodium,pota 2022-0 Yes [id number] Drink 1 Methodi ssium,mag 1-[address] sulfates 00:00: directed Hospi ta (Suprep 00 for dose 1 l Bowel Prep and 1 Kit) bottle as 17.5-3.13-1 directed .6 gram for dose recon soln 2. sodium,pota 2022-0 Yes [id number] Drink 1 Methodi ssium,mag 1-[address] sulfates 00:00: directed Hospi ta (Suprep 00 for dose 1 l Bowel Prep and 1 Kit) bottle as 17.5-3.13-1 directed .6 gram for dose recon soln 2. aspirin 81 2021-11 Yes 81mg Chew 1 Unive rs mg chewable 2-13 tablet (81 it y of tablet 16:05: mg) daily. [place] [address] [facility] aspirin 81 2021-11 Yes 81mg Chew 1 Unive rs mg chewable 2-13 tablet (81 it y of tablet 16:05: mg) daily. [place] [address] [facility] silodosin 2021-0 Yes 8mg QD Take 1 Method i (RAPAFLO) 8 8-04 capsule (8 st mg capsule 00:00: mg total) Ho spita 00 by mouth l daily. silodosin 202-0 Yes 8mg QD Take 1 Method i (RAPAFLO) 8 -04 capsule (8 st mg capsule 00:00: mg total) Ho spita 00 by mouth l daily. silodosin 202-0 2022- No 8mg QD Take 1 Metho di (RAPAFLO) 8 04-08- capsule (8 s t mg capsule 00:00: 00:00 mg total) H ospita 00 :00 by mouth l daily. silodosin 202-0 202- No 8mg QD Take 1 Metho di (RAPAFLO) 8 04-08- capsule (8 s t mg capsule 00:00: 00:00 mg total) H ospita 00 :00 by mouth l daily. ciprofloxac 0 Yes 500mg Take 1 Uni vers in HCl 3-29 tablet ity of (CIPRO) 500 00:00: (500 mg[place] 00 by mouth daily. [facility] ciprofloxac 0 Yes 500mg Take 1 Uni vers in HCl 3-29 tablet ity of (CIPRO) 500 00:00: (500 mg[place] mg tablet 00 by mouth daily. [facility] candesartan Yes 1{tbl} Take 1 Un miguel -hydrochlor 1-01 tablet by ity of othiazide 00:00: mouth [place] (ATACAND 00 daily. MD LOPEZ) Anderso 32-12.5 mg n per tablet [facility] candesartan Yes 1{tbl} Take 1 Un miguel -hydrochlor 1-01 tablet by ity of othiazide 00:00: mouth [place] (ATACAND 00 daily. MD LOPEZ) Anderso 32-12.5 mg n per tablet [facility] Immunizations Ordered Immunization Filled Immunization Date Status Commen ts Source Name Name Slinky COVID-19 MRNA 2022-07-21 Completed Meth odist VACCINATION 00:00:00 [facility] PFIZER COVID-19 MRNA 2022-07-21 Completed Meth odist VACCINATION 00:00:00 [facility] PFIZER COVID-19 MRNA 2021-08-27 Completed Meth odist VACCINATION 00:00:00 [facility] PFIZER COVID-19 MRNA 2021-08-27 Completed Meth odist VACCINATION 00:00:00 [facility] PFIZER COVID-19 MRNA 2021-02-12 Completed Meth odist VACCINATION 00:00:00 [facility] PFIZER COVID-19 MRNA 2021-02-12 Completed Meth odist VACCINATION 00:00:00 [facility] PFIZER COVID-19 MRNA 2021-01-22 Completed Meth odist VACCINATION 00:00:00 [facility] PFIZER COVID-19 MRNA 2021-01-22 Completed Meth odist VACCINATION 00:00:00 Hospital Vital Signs Vital Name Observation Time Observation Value Comments Source Systolic blood 2023-01-12 13:03:57 154 mm[Hg] [facility] pressure Diastolic blood 2023-01-12 13:03:57 84 mm[Hg] [facility] pressure Heart rate 2023-01-12 13:03:57 54 /min [facility] Body temperature 2023-01-12 13:03:57 36.06 [facility] Respiratory rate 2023-01-12 13:03:57 19 /min [facility] Oxygen saturation in 2023-01-12 13:03:57 93 /min [facility] Arterial blood by Pulse oximetry Body height 2023-01-11 15:14:00 180.3 cm [facility] Body weight 2023-01-11 15:14:00 140.479 kg [facility] BMI 2023-01-11 15:14:00 43.19 kg/m2 [facility] Systolic blood 2022-11-10 18:05:42 144 mm[Hg] Univer sity of pressure [facility] Diastolic blood 2022-11-10 18:05:42 56 mm[Hg] Unive rsity of pressure [facility] Heart rate 2022-11-10 18:05:42 58 /min [facility] Respiratory rate 2022-11-10 18:05:42 18 /min [facility] Oxygen saturation in 2022-11-10 18:05:42 97 /min [facility] Arterial blood by Kierra tavares Pulse oximetry [facility] Center Body height 2022-11-10 15:47:00 179 cm [facility] Body weight 2022-11-10 15:47:00 142.5 kg [facility] BMI 2022-11-10 15:47:00 44.47 kg/m2 [facility] Procedures Procedure Date / Time Performing Clinician Source Performed ANESTHESIA SPINAL BLOCK 2023-01-11 20:27:49 [facility] [place] AN ELECTIVE 2023-01-11 19:13:00 [facility] ENDOTRACHEAL AIRWAY TRANSURETHRAL AQUABLATION 2023-01-11 18:52:00 [facility] OF THE PROSTATE Vahe Hutchison SURGICAL PATHOLOGY REQUEST 2023-01-11 15:04:00 [facility] Vahe Hutchison XR CHEST 2 VW 2023-01-06 16:38:00 [facility] janessa Hutchison URINE CULTURE 2023-01-06 16:07:00 [facility] janessa Hutchison URINALYSIS SCREEN AND 2023-01-06 16:07:00 TheoRose shin [facility] MICROSCOPY, WITH REFLEX TO CULTURE PARTIAL THROMBOPLASTIN 2023-01-06 15:56:00 TheoRose shin [facility] TIME (PTT) PROTHROMBIN TIME WITH INR 2023-01-06 15:56:00 [facility] CBC WITH PLATELET AND 2023-01-06 15:56[facility]00 [facility]PREHENSIVE METABOLIC 2023-01-06 15:56:00 [facility] PANEL HEMOGLOBIN A1C 2023-01-06 15:56:00 Theo, [facility] ESTIMATED GFR 2023-01-06 15:56:00 Theo, [facility] ECG PRE/POST OP 2023-01-06 15:55:24 Theo [facility] URINE CULTURE 2023-01-06 15:47:00 [facility] WO CONTRAST 2022-11-10 17:55:00 Domingo Preston [facility] COMPLETE BLOOD COUNT W/ 2022-11-10 14:44:00 Domingo Preston [facility] DIFFERENTIAL [facility] COMPREHENSIVE METABOLIC 2022-11-10 14:44:00 Domingo Preston [facility] PANEL [facility] Results CBC 2022-11-10 14:44:00 Domingo Preston [facility] MANUAL DIFFERENTIAL 2022-11-10 14:44:00 Domingo Preston [facility] GLUCOSE LEVEL 2022-11-10 14:44:00 Domingo Preston [facility] BLOOD UREA NITROGEN 2022-11-10 14:44:00 Domingo Preston [facility] ELECTROLYTE PANEL 2022-11-10 14:44:00 Domingo Preston [facility] SERUM CREATININE 2022-11-10 14:44:00 Domingo Preston [facility] .GLOMERULAR FILTRATION 2022-11-10 14:44:00 Domingo Preston [facility] RATE [facility] CALCIUM LEVEL TOTAL 2022-11-10 14:44:00 Domingo Preston [facility] ALBUMIN LEVEL 2022-11-10 14:44:00 Domingo Preston [facility] ALKALINE PHOSPHATASE 2022-11-10 14:44:00 Domingo Preston [facility] ALANINE AMINOTRANSFERASE 2022-11-10 14:44:00 Domingo Preston [facility] ASPARTATE AMINOTRANSFERASE 2022-11-10 14:44:00 [facility] T[facility] PROTEIN 2022-11-10 14:44:00 Domingo Preston [facility] FRACTIONATED BILIRUBIN 2022-11-10 14:44:00 Domingo Preston [facility] Plan of Care Planned Activity Planned Date Details Comments Source Future Scheduled 2023-05-13 Hepatitis C screening [facility] Test 13:38:53 (procedure) [code = 384932688] Future Scheduled 2023-05-13 SHINGLES VACCINES (1 [facility] Test 13:38:53 of 2) [code = SHINGLES VACCINES (1 of 2)] Future Scheduled 2023-05-13 65+ PNEUMOCOCCAL [facility] Test 13:38:53 VACCINE (1 - PCV) [code = 65+ PNEUMOCOCCAL VACCINE (1 - PCV)] Future Scheduled 2023-05-13 COVID-19 VACCINE (5 - [facility] Test 13:38:53 Pfizer series) [code = COVID-19 VACCINE (5 - Pfizer series)] Future Scheduled 2023-05-13 INFLUENZA VACCINE Method [facility] Hospital Test 13:38:53 [code = INFLUENZA VACCINE] Future Scheduled 2023-04-23 COVID-19 Vaccination [facility] [place] Test 10:09:11 (4 - Pfizer series) [facility] [code = COVID-19 Center Vaccination (4 - Pfizer series)] Future Scheduled 2023-04-[address] [facility] Test 12:54:54 (procedure) [code = 770472457] Future Scheduled 2023-04-12 SHINGLES VACCINES (1 [facility] Test 12:54:54 of 2) [code = SHINGLES VACCINES (1 of 2)] Future Scheduled 2023-04-12 65+ PNEUMOCOCCAL [facility] Test 12:54:54 VACCINE (1 - PCV) [code = 65+ PNEUMOCOCCAL VACCINE (1 - PCV)] Future Scheduled 2023-04-12 COVID-19 VACCINE (5 - [facility] Test 12:54:54 Booster for Pfizer series) [code = COVID-19 VACCINE (5 - Booster for Pfizer series)] Future Scheduled 2023-04-12 INFLUENZA VACCINE [facility] Hospital Test 12:54:54 [code = INFLUENZA VACCINE] Future Scheduled 2023-01-12 COVID-19 Vaccination [facility] [place] Test 20:57:33 (4 - Booster for [facility] Pfizer series) [code Center = COVID-19 Vaccination (4 - Booster for Pfizer series)] Encounters Start End Encounter Admission Attending Care Care Encounter Source Date/Time Date/Time Type Type Clinicians Facility Department ID 2023-05-13 2023-05-13 Office [facility]-Sand 1.2.840.1 [id number] Methodi 09:00:00 09:15:00 Visit oval, [address]059.1.[address] Vahe Kianna 3.430.2.7 Ho spita .3.085023 l .8 2023-05-13 2023-05-13 Outpatient LEVIN[facility]SAND [facility] [id number] Rosas 00:00:00 00:00:00 OVAL, [address] 2023-04-05 2023-04-05 Refill [facility] 1.2.840.1 [id number] Methodi 00:00:00 00:00:00 oval, [address]7022.1.[address] Vahe [place]na 3.430.2.7 Ho spita .3.524261 l .8 2023-04-05 2023-04-05 Refill [facility] 1.2.840.1 [id number] Methodi 00:00:00 00:00:00 oval, [address]693.1.[address] Vahe [place]na 3.430.2.7 Ho spita .3.681062 l .8 2023-03-31 2023-03-31 Office [facility] 1.2.840.1 [id number] 21 [id number] Methodi 09:00:00 09:15:00 Visit oval, [address]14.1.[address] Va[place] 3.430.2.7 Ho spita .3.914563 l .8 2023-03-31 2023-03-31 Office [facility] 1.2.840.1 [id number] 21 [id number] Methodi 09:00:00 09:15:00 Visit oval, [address]6823.1.[address] Va[place] 3.430.2.7 Ho spita .3.904506 l .8 2023-02-26 2023-02-26 Office [facility] 1.2.840.1 [id number] 21 [id number] Methodi 09:15:00 09:58:26 Visit oval, 67856.1.[address] [place] 3.430.2.7 Ho spita .3.627366 l .8 2023-02-26 2023-02-26 Office [facility] 1.2.840.1 [id number] 21 [id number] Methodi 09:15:00 09:58:26 Visit oval, [address]30.1.[address] [place] 3.430.2.7 Ho spita .3.130521 l .8 2023-02-11 2023-02-11 Telephone [facility] 1.2.840.1 [id number] Methodi 00:00:00 00:00:00 oval, [address]1633.1.[address] [place] 3.430.2.7 Ho spita .3.657194 l .8 2023-02-11 2023-02-11 Telephone [facility] 1.2.840.1 [id number] Methodi 00:00:00 00:00:00 oval, [address]25.1.[address] [place] 3.430.2.7 Ho spita .3.412476 l .8 2023-02-10 2023-02-10 Telephone [facility] 1.2.840.1 [id number] Methodi 00:00:00 00:00:00 oval, [address]696.1.[address] [place] 3.430.2.7 Ho spita .3.626414 l .8 2023-02-10 2023-02-10 Telephone [facility] 1.2.840.1 [id number] Methodi 00:00:00 00:00:00 oval, [address]323.1.[address] [place] 3.430.2.7 Ho spita .3.607087 l .8 2023-01-25 2023-01-25 Office [facility] 1.2.840.1 [id number] 21 [id number] Methodi 15:30:00 16:14:14 Visit oval, [address]3717.1.[address] [place] 3.430.2.7 Ho spita .3.374769 l .8 2023-01-25 2023-01-25 Office [facility] 1.2.840.1 [id number] 21 [id number] Methodi 15:30:00 16:14:14 Visit oval, 31266.1.[address] [place] 3.430.2.7 Ho spita .3.635102 l .8 2023-01-25 2023-01-25 Travel 1.2.840.1 1.2.401.197 [id number] Methodi 00:00:00 00:00:[address] 3.430.2.7 0.2.7.3.698 Ho spita .3.119405 084.8 l .8 2023-01-25 2023-01-25 Travel 1.2.840.1 1.2.716.424 2549 [id number] Methodi 00:00:00 00:00:[address] 3.430.2.7 0.2.7.3.698 Ho spita .3.039719 084.8 l .8 2023-01-21 2023-01-21 Telephone Foley, 1.2.840.1 [id number] Methodi 00:00:00 00:00:[address] 3.430.2.7 Hospit a .3.928662 l .8 2023-01-21 2023-01-21 Telephone [facility] 1.2.840.1 [id number] Methodi 00:00:00 00:00:00 oval, 43714.1.[address] [place] 3.430.2.7 Ho spita .3.507557 l .8 2023-01-21 2023-01-21 Telephone Foley, 1.2.840.1 [id number] Methodi 00:00:00 00:00:[address] 3.430.2.7 Hospit a .3.050432 l .8 2023-01-21 2023-01-21 Telephone [facility] 1.2.840.1 [id number] Methodi 00:00:00 00:00:00 oval, 42261.1.[address] [place] 3.430.2.7 Ho spita .3.810555 l .8 2023-01-11 2023-01-12 [facility] 1.2.840.1 [id number] 2 [id number] Methodi 08:33:00 12:03:00 Encounter oval, 39871.1.[address] [place] 3.430.2.7 Ho spita .3.017593 l .8 2023-01-11 2023-01-12 [facility] 1.2.840.1 [id number] 2 [id number] Methodi 08:33:00 12:03:00 Encounter oval, 43507.1.[address] [place] 3.430.2.7 Ho spita .3.738755 l .8 2023-01-12 2023-01-12 [facility] 1.2.840.1 [id number] Methodi 00:00:00 00:00:00 oval, 77173.1.[address] [place] 3.430.2.7 Ho spita .3.558704 l .8 2023-01-12 2023-01-12 [facility] 1.2.840.1 [id number] Methodi 00:00:00 00:00:00 oval, 00025.1.[address] [place] 3.430.2.7 Ho spita .3.717828 l .8 2023-01-11 2023-01-11 [facility] 1.2.840.1 [id number] 21 [id number] Methodi 12:30:00 14:45:00 oval, 84811.1.[address] [place] 3.430.2.7 Ho spita .3.368480 l .8 2023-01-11 2023-01-11 [facility] 1.2.840.1 [id number] 21 [id number] Methodi 12:30:00 14:45:00 oval, 61098.1.[address] [place] 3.430.2.7 Ho spita .3.752285 l .8 2023-01-11 2023-01-11 Anesthesia Deandre Mccray 1.2.840.1 [id number] Methodi 12:52:00 14:40:00 Event Rose Venegas Curry 25960.1.[address] 3.430.2.7 Hospit a .3.051602 l .8 2023-01-11 2023-01-11 Anesthesia Deandre Mccray 1.2.840.1 [id number] Methodi 12:52:00 14:40:00 Event Rose Venegas Curry 99921.1.[address] 3.430.2.7 Hospit a .3.557327 l .8 2023-01-08 2023-01-08 Telephone Foley, 1.2.840.1 [id number] [id number] Methodi 00:00:00 00:00:[address] 3.430.2.7 Hospit a .3.612309 l .8 2023-01-08 2023-01-08 Telephone Foley, 1.2.840.1 [id number] [id number] Methodi 00:00:00 00:00:[address] 3.430.2.7 Hospit a .3.353242 l .8 2023-01-06 2023-01-06 [facility] 1.2.840.1 [id number] 2 [id number] Methodi 09:00:00 23:59:00 Encounter oval, 39819.1.[address] [place] 3.430.2.7 Ho spita .3.928584 l .8 2023-01-06 2023-01-06 [facility] 1.2.840.1 [id number] 2 [id number] Methodi 09:00:00 23:59:00 Encounter oval, 16280.1.[address] [place] 3.430.2.7 Ho spita .3.755109 l .8 2023-01-06 2023-01-06 Pre-Admiss Jelena Winteripe Ner y 1.2.840.1 [id number] Methodi 09:30:00 10:30:00 Rose Lerner W. 70754.1.[address] Testing 3.430.2.7 Hospit a .3.079765 l .8 2023-01-06 2023-01-06 Pre-Admiss Vahe Winter Ner y 1.2.840.1 [id number] Methodi 09:30:00 10:30:00 Rose Lerner W. 15446.1.[address] Testing 3.430.2.7 Hospit a .3.021955 l .8 2023-01-06 2023-01-06 Travel 1.2.840.1 1.2.746.756 2157 [id number] Methodi 00:00:00 00:00:[address] 3.430.2.7 0.2.7.3.698 Ho spita .3.271512 084.8 l .8 2023-01-06 2023-01-06 Travel 1.2.840.1 1.2.832.531 7138 [id number] Methodi 00:00:00 00:00:[address] 3.430.2.7 0.2.7.3.698 Ho spita .3.521142 084.8 l .8 2022-12-08 2022-12-08 Orders Foley, 1.2.840.1 [id number] Methodi 00:00:00 00:00:00 Only Deanne 34352.1.[address] 3.430.2.7 Hospit a .3.419294 l .8 2022-12-08 2022-12-08 Orders Foley, 1.2.840.1 [id number] Methodi 00:00:00 00:00:00 Only Deanne 09826.1.[address] 3.430.2.7 Hospit a .3.473389 l .8 2022-12-07 2022-12-07 Prep for Og, 1.2.840.1 [id number] Methodi 00:00:00 00:00:00 Surgery Deanne 95473.1.[address] 3.430.2.7 Hospit a .3.557315 l .8 2022-12-07 2022-12-07 Prep for Og, 1.2.840.1 [id number] Methodi 00:00:00 00:00:00 Surgery Deanne 48750.1.[address] 3.430.2.7 Hospit a .3.446092 l .8 2022-12-04 2022-12-04 Telephone [facility] 1.2.840.1 [id number] Methodi 00:00:00 00:00:00 oval, 56535.1.[address] [place] 3.430.2.7 Ho spita .3.882740 l .8 2022-12-04 2022-12-04 Telephone [facility] 1.2.840.1 [id number] Methodi 00:00:00 00:00:00 oval, 16888.1.[address] [place] 3.430.2.7 Ho spita .3.499939 l .8 2022-11-11 2022-11-11 Telemedici NIXON Preston 1.2.840.1 [id number] [facility] [place] [facility] 16:00:00 16:30:00 ne Domingo 15061.1.1 ity of 3.412.2.7 [place] .3.930569 MD Sood8 [facility] 2022-11-11 2022-11-11 Telemediclynn [place] 1.2.840.1 [id number] [facility] 16:00:00 16:30:00 ne Domingo 01854.1.1 ity of 3.412.2.7 [place] .3.235160 MD Sood8 [facility] 2022-11-10 2022-11-10 Eunice Preston 1.2.840.1 [id number] [facility] 09:30:00 12:20:00 Procedure Domingo 37485.1.1 it y of 3.412.2.7 [place] .3.891444 MD Sood8 [facility] 2022-11-10 2022-11-10 Ancillary NIXON Preston, 1.2.840.1 [id number] Univers 09:30:00 12:20:00 Procedure Domingo 59835.1.1 it y of 3.412.2.7 [place] .3.202548 MD Sood8 [facility] 2022-11-10 2022-11-10 Outpatient BIANCA HARDEN MDA MDA [id number] 08:44:18 09:12:26 [facility] 2022-11-10 2022-11-10 Travel 1.2.840.1 1.2.626.294 [id number] Univers 00:00:00 00:00:00 34540.1.1 350.1.13.41 ity of 3.412.2.7 2.[place].3.698 [place] .3.794199 084.8 .8 [facility] 2022-11-10 2022-11-10 Travel 1.2.840.1 1.2.532.991 [id number] Univers 00:00:00 00:00:00 04929.1.1 350.1.13.41 ity of 3.412.2.7 2.[place]7.3.698 [place] .3.312558 084.8 MD Sood8 [facility] 2022-10-08 2022-10-08 Office Levin-Sand 1.2.840.1 [id number] Methodi 09:15:00 09:58:00 Visit oval, [address]87.1.[address] Kianna 3.430.2.7 Ho spita .3.491723 dottie Sood8 2022-10-08 2022-10-08 Office Levin-Sand 1.2.840.1 [id number] Methodi 09:15:00 09:58:00 Visit oval, [address]36.1.[address] Kianna 3.430.2.7 Ho spita .3.085041 l .8 2022-10-08 2022-10-08 Travel 1.2.840.1 1.2.075.462 [id number] Methodi 00:00:00 00:00:00 [address] 3.430.2.7 0.2.7.3.698 Ho spita .3.456399 084.8 l .8 2022-10-08 2022-10-08 Travel 1.2.840.1 1.2.337.567 [id number] Methodi 00:00:00 00:00:[address] 3.430.2.7 0.2.7.3.698 Ho spita .3.577462 084.8 l .8 2022-07-02 2022-07-02 Office [facility] 1.2.840.1 [id number] Methodi 09:15:00 09:30:33 Visit oval, [address]392.1.[address] [place] 3.430.2.7 Ho spita .3.549771 l .8 2022-07-02 2022-07-02 Office [place] 1.2.840.1 [id number] Methodi 09:15:00 09:30:33 Visit oval, [address]644.1.[address] [place] [place] 3.430.2.7 Ho spita .3.977772 l .8 2022-05-07 2022-05-07 Telephone [place] 1.2.840.1 [id number] Methodi 00:00:00 00:00:00 oval, [address]13.1.[address] [place] [place] 3.430.2.7 Ho spita .3.904710 l .8 2022-04-08 2022-04-08 Outpatient LEVIN-SAND [facility] [id number] [place] 00:00:00 00:00:00 OVAL, [address] 2022-03-16 2022-03-16 Outpatient ATTAR, [facility] [id number] [place] 00:00:00 00:00:00 MOHAMMED [address] 2022-02-25 2022-02-25 Outpatient LEVIN-SAND [facility] [id number] [place] 00:00:00 00:00:00 OVAL, [address] 2022-02-06 2022-02-06 Outpatient [facility] [id number] [place] 00:00:00 00:00:[address] 2022-02-03 2022-02-03 Outpatient LEVIN-SAND [facility] [id number] [place] 00:00:00 00:00:00 OVAL, [address] 2022-01-27 2022-01-27 Outpatient LEVIN-SAND [facility] [id number] [place] 00:00:00 00:00:00 OVAL, [address] 2022-01-13 2022-01-13 Outpatient LEVIN-SAND [facility] [id number] [place] 00:00:00 00:00:00 OVAL, [address] 2021-11-13 2021-11-13 Outpatient NIXON MCKAY, MDA MDA [id number] 21:15:13 21:15:13 J[place]GITO hollidayso [place] 2021-11-07 2021-11-07 Outpatient NIXON MCKAY, MDA MDA [id number] MD 08:33:51 08:33:51 JORGITO hollidayso n 2021-11-07 2021-11-07 Outpatient NIXON MCKAY, MDA MDA [id number] 08:25:36 08:27:15 JORGITO hollidayso n 2021-08-27 2021-08-27 Outpatient [facility] [id number] [place] 00:00:00 00:00:[address] 2021-02-12 2021-02-12 Outpatient CHERIE, [facility] [id number] [place] 00:00:00 00:00:00 JORGITO [address] 2021-01-22 2021-01-22 Outpatient [facility] [id number] [place] 00:00:00 00:00:[address] 2020-11-13 2020-11-13 Outpatient NIXON MCKAY MDA MDA [id number] 10:29:52 10:29:52 JORGITO Carreon derso n 2020-11-08 2020-11-08 Outpatient NIXON MCKAY MDA MDA [id number] 10:02:07 10:02:07 JORGITO hollidayso n 2020-11-08 2020-11-08 Outpatient NIXON MCKAY MDA MDA [id number] 10:00:02 10:00:02 JORGITO hollidayso n 2020-11-08 2020-11-08 Outpatient NIXON MCKAY MDA MDA [id number] 09:36:19 09:52:45 JORGITO Carreon derso n Results Test Description Test Time Test Comments Results Result Comments Source Surgical pathology request 2023-01-19 20:43:15 Test Item Value Reference Range Interpretation Comme nts Case number (test code = [id number]) [id number] Surgical pathology report (test code = See link below for PDF Lab R eport 2255) Result status (test code = 3624699) This is Final Report for [id number] [facility] [id number] 20:43:15 Test Item Value Reference Range Interpretation Comments Case number (test code = [id number]) Surgical pathology See link below for report (test code = PDF Lab Report 2255) Result status (test code This is Final Report = [id number]) for [id number] [facility] Pre/Post [id number] 01:35:59 Test Item Value Reference Range Interpretation Comments Ventricular rate (test 48 code = 253) Atrial rate (test code = 48 255) WI interval (test code = 172 266) QRSD [...] ECG-No previous ECGs available-Electronica lly Signed By Miguel Angel UMANZOR, Yara ([id number]) on 01/07/2023 7:35:57 PM [facility] Pre/Post [id number] 01:35:59 Test Item Value Reference Range Interpretation Comments Ventricular rate (test 48 code = 253) Atrial rate (test code = 48 255) WI interval (test code = 172 266) QRSD [...] ECG-No previous ECGs available-Electronica lly Signed By Miguel Angel UMANZOR, Yara ([id number]) on 01/07/2023 7:35:57 PM [facility]
[2023-06-24 10:57] LABS: Absolute Lymphocytes (CBC) 1.6 K/uL (0.7-4.9); Hematocrit 42.6 % (39.6-49.0); MPV 8.4 fL (7.6-11.3); Platelets 239 thou/uL (152-406); RBC Red Blood Cell Count 4.84 M/uL (4.33-5.43)
[2023-06-24 11:15] LABS: Magnesium 2.3 mg/dL (1.6-2.4); Potassium 3.9 mEq/L (3.5-5.1); Troponin High Sensitivity 7.1 pg/mL (<58.9)
--- NOTE | 2023-06-24 11:22 | RAD REPORT ---
EXAM DESCRIPTION: RAD - Chest Single View - 06/24/2023 11:16 am CLINICAL HISTORY: CHEST PAIN Chest pain. COMPARISON: Chest Single View dated 04/18/2023; Chest Single View dated 03/13/2022; Abdomen 1 View ([facility]) dated 02/21/2020; Chest Single View dated 02/20/2020 FINDINGS: Portable technique limits examination quality. The lungs are grossly clear. The heart is mildly enlarged in size. No displaced fractures. IMPRESSION: No acute intrathoracic process suspected.
--- NOTE | 2023-06-24 12:22 | EDPHYS ---
Physician Documentation [facility] Name: Evens Freitas Sr Age: 78 yrs Sex: Male : 1945 Arrival Date: 06/24/2023 Time: 10:17 Bed 20 Private MD: ED Physician Bob Adams HPI: 06/24 10:38 This 78 yrs old Male presents to ER via Unassigned with complaints of Chest Pain, ms3 generalized weakness. 10:38 78-year-old male with past medical history of hypertension and BPH presents for ms3 generalized weakness that has been progressive since March. Patient states he was admitted in March when his heart rate was in the 30s. Patient was instructed to stop beta-blockers. Patient notes recently his heart rate has averaged between 42 and 49. Patient does not endorse pain at this time. Patient denies alleviating or inciting factors. Patient states his supervisor joiners is Dr. Stephens and his primary care physician is Dr. San. Historical: - Allergies: 10:45 No Known Allergies; iw - PMHx: 10:45 Hypertensive disorder; iw - PSHx: 10:45 hernia repair; iw - Immunization history:: Adult Immunizations unknown. - Social history:: Smoking status: Patient denies any tobacco usage or history of. ROS: 10:38 Constitutional: Negative for fever, and chills. Neck: Negative for injury, pain, and ms3 swelling, Cardiovascular: Negative for chest pain, and palpitations. Respiratory: Negative for shortness of breath, cough, wheezing, and pleuritic chest pain, Abdomen/GI: Negative for abdominal pain, nausea, vomiting, diarrhea, and constipation, MS/Extremity: Negative for injury and deformity. 10:38 All other systems are negative. Exam: 10:38 Constitutional: This is a well developed, well nourished patient who is awake, alert, ms3 and in no acute distress. Head/Face: Normocephalic, atraumatic. Neck: Trachea midline, no cervical lymphadenopathy. Supple, full range of motion without nuchal rigidity, or vertebral point tenderness. No Meningismus. Chest/axilla: Normal chest wall appearance and motion. Nontender with no deformity. Cardiovascular: Regular rate and rhythm with a normal S1 and S2. No gallops, murmurs, or rubs. Normal PMI, no JVD. No pulse deficits. Respiratory: Lungs have equal breath sounds bilaterally, clear to auscultation and percussion. No rales, rhonchi or wheezes noted. No increased work of breathing, no retractions or nasal flaring. Abdomen/GI: Soft, non-tender, with normal bowel sounds. No distension or tympany. No guarding or rebound. No evidence of tenderness throughout. Skin: Warm, dry with normal turgor. Normal color with no rashes, no lesions, and no evidence of cellulitis. MS/ Extremity: Pulses equal, no cyanosis. Neurovascular intact. Full, normal range of motion. 10:38 ECG was reviewed by the Attending Physician. Vital Signs: 10:31 BP 171 / 62; Pulse 54; Resp 14; Temp 99(O); Pulse Ox 96% ; Weight 149.69 kg; Height 5 db ft. 11 in. ; 11:30 BP 134 / 58; Pulse 43; Resp 16 S; Pulse Ox 96% ; db 12:30 BP 139 / 54; Pulse 41; Resp 16; Pulse Ox 97% on R/A; db 13:30 BP 159 / 53; Pulse 43; Resp 16; Pulse Ox 97% on R/A; db 14:30 BP 148 / 63; Pulse 43; Resp 16; Pulse Ox 97% on R/A; db 15:30 BP 164 / 67; Pulse 46; Resp 16; Pulse Ox 99% on R/A; db 16:30 BP 178 / 72; Pulse 55; Resp 18; Pulse Ox 99% on R/A; db 10:31 Body Mass Index 46.03 (149.69 kg, 180.34 cm) db MDM: 10:43 Patient medically screened. ms3 12:27 Differential diagnosis: abnormal EKG, acute myocardial infarction, Electrolyte ms3 abnormality. The patient was not given aspirin in the Emergency Department. Patient reports taking aspirin within the past 24 hours. Data reviewed: vital signs, nurses notes, and as a result, I will admit patient. Consideration of Admission/Observation Patient was admitted/placed on observation. Management of patient was discussed with the following: Hospitalist: Dr Du. Powerhouse Mechanic: Dr Stephens- Cardiolgy- would like patient placed in observation- trend troponin and monitor telemetry. Independent interpretation of the following test(s) in the Emergency Department EKG: See my EKG interpretation above monitoring analyst: rate is 52 beats/min, Rhythm is normal sinus rhythm, regular, with unifocal PVCs, Interpretation: normal rate, normal rhythm. Care significantly affected by the following chronic conditions: Hypertension. Counseling: I had a detailed discussion with the patient and/or guardian regarding: the historical points, exam findings, and any diagnostic results supporting the discharge/admit diagnosis, lab results, radiology results, the need for further work-up and treatment in the hospital. ED course: Discussed case with Dr Du and he accepts patient as observation.. 06/24 10:38 Order name: Basic Metabolic Panel; Complete Time: 11:16 ms3 06/24 10:38 Order name: CBC with Diff; Complete Time: 11:16 ms3 06/24 10:38 Order name: Magnesium; Complete Time: 11:16 ms3 06/24 10:38 Order name: Troponin HS; Complete Time: 11:16 ms3 06/24 12:43 Order name: CBC with Automated Diff [facility] 06/24 12:43 Order name: CBC with Automated Diff [facility] 06/24 12:43 Order name: Comprehensive Metabolic Panel [facility] 06/24 12:43 Order name: Comprehensive Metabolic Panel [facility] 06/24 12:43 Order name: Lipid Profile [facility] 06/24 12:43 Order name: Lipid Profile [facility] 06/24 12:43 Order name: Troponin High Sensitivity [facility] 06/24 12:43 Order name: Troponin High Sensitivity [facility] 06/24 12:43 Order name: Troponin High Sensitivity [facility] 06/24 10:38 Order name: XRAY Chest (1 view); Complete Time: 12:12 ms3 06/24 10:38 Order name: EKG; Complete Time: 10:39 ms3 06/24 12:32 Order name: Diet Heart Healthy; Complete Time: 12:32 db 06/24 12:43 Order name: CONS Physician Consult [place] 06/24 10:38 Order name: Cardiac monitoring; Complete Time: 10:58 ms3 06/24 10:38 Order name: EKG - Nurse/Tech; Complete Time: 10:58 ms3 06/24 10:38 Order name: IV Saline Lock; Complete Time: 10:51 ms3 06/24 10:38 Order name: Labs collected and sent; Complete Time: 10:51 ms3 06/24 10:38 Order name: O2 Per Protocol; Complete Time: 10:58 ms3 06/24 10:38 Order name: O2 Sat Monitoring; Complete Time: 10:58 ms3 EC:38 Rate is 52 beats/min. Rhythm is regular. QRS [place] is Normal. [place] interval is normal. QRS ms3 interval is normal. Clinical impression: Normal ECG and PVC. Interpreted by me. Reviewed by me. Administered Medications: No medications were administered Disposition Summary: 06/24/23 12:22 Hospitalization Ordered Hospitalization Status: Observation ms3 Provider: Basim Du ms3 Location: Telemetry/MedSurg (observation) ms3 Condition: Stable ms3 Problem: new ms3 Symptoms: are unchanged ms3 Bed/Room Type: Standard ms3 Room Assignment: 409(06/24/23 15:41) em1 Diagnosis - Muscle weakness (generalized) ms3 - Chest pain, unspecified ms3 Forms: - Medication Reconciliation Form ms3 - SBAR form ms3 Signatures: Dispatcher [employer] EDKami Dick RN Rajendra Steward em1 Bob Adams DO DO ms3 Lidia Bai RN RN db Corrections: (The following items were deleted from the chart) 15:41 12:22 ms3 em1
--- NOTE | 2023-06-24 12:22 | ER ---
Nurse's Notes [facility] Name: Evens Freitas Sr Age: 78 yrs Sex: Male : 1945 Arrival Date: 06/24/2023 Time: 10:17 Bed 20 Private MD: Diagnosis: Muscle weakness (generalized);Chest pain, unspecified Presentation: 06/24 10:43 Chief complaint: Patient states: has been feeling weak and dizzy, last night he was iw having left sided chest pain, he was taken off beta blockers in March due to low HR in 30's, sees Dr. Stephens. Coronavirus screen: At this time, the client does not indicate any symptoms associated with coronavirus-19. Ebola Screen: Patient negative for fever greater than or equal to 101.5 degrees Fahrenheit, and additional compatible Ebola Virus Disease symptoms Patient denies exposure to infectious person. Patient denies travel to an Ebola-affected area in the 21 days before illness onset. No symptoms or risks identified at this time. Onset of symptoms was June 23, 2023. 10:43 Method Of Arrival: Ambulatory iw 10:43 Acuity: REKHA 3 iw 10:45 Initial Sepsis Screen: Does the patient meet any 2 criteria? No. Patient's initial db sepsis screen is negative. Does the patient have a suspected source of infection? No. Patient's initial sepsis screen is negative. Risk Assessment: Do you want to hurt yourself or someone else? Patient reports no desire to harm self or others. Triage Assessment: 10:31 General: Appears in no apparent distress. Behavior is calm, cooperative. Pain: db Complains of pain in chest. Cardiovascular: Reports chest pain, Capillary refill < 3 seconds. Historical: - Allergies: 10:45 No Known Allergies; iw - PMHx: 10:45 Hypertensive disorder; iw - PSHx: 10:45 hernia repair; iw - Immunization history:: Adult Immunizations unknown. - Social history:: Smoking status: Patient denies any tobacco usage or history of. Screenin:00 [facility] ED Fall Risk Assessment (Adult) History of falling in the last 3 months, db including since admission No falls in past 3 months (0 pts) Confusion or Disorientation No (0 pts) Intoxicated or Sedated No (0 pts) Impaired Gait No (0 pts) Mobility Assist Device Used No (0 pt) Altered Elimination No (0 pt) Score/Fall Risk Level 0 - 2 = Low Risk Oriented to surroundings, Maintained a safe environment. Abuse screen: Denies threats or abuse. Denies injuries from another. Nutritional screening: No deficits noted. Tuberculosis screening: No symptoms or risk factors identified. Assessment: 11:00 Reassessment: Patient appears in no apparent distress at this time. Patient and/or db family updated on plan of care and expected duration. Pain level reassessed. Patient is alert, oriented x 3, equal unlabored respirations, skin warm/dry/pink. General: Appears in no apparent distress. comfortable, Behavior is calm, cooperative. Pain: Complains of pain in chest Pain does not radiate. Pain began gradually. Neuro: Level of Consciousness is awake, alert, obeys commands, Oriented to person, place, time, situation, Moves all extremities. Speech is normal. Cardiovascular: Rhythm is sinus bradycardia. Respiratory: Airway is patent Respiratory effort is even, unlabored, Respiratory pattern is regular, symmetrical. 12:53 Reassessment: Patient appears in no apparent distress at this time. Patient and/or db family updated on plan of care and expected duration. Pain level reassessed. Patient is alert, oriented x 3, equal unlabored respirations, skin warm/dry/pink. General: Appears in no apparent distress. comfortable. Cardiovascular: Rhythm is sinus bradycardia. 14:00 Reassessment: Patient appears in no apparent distress at this time. Patient and/or db family updated on plan of care and expected duration. Pain level reassessed. Patient is alert, oriented x 3, equal unlabored respirations, skin warm/dry/pink. 15:00 Reassessment: Patient appears in no apparent distress at this time. Patient and/or db family updated on plan of care and expected duration. Pain level reassessed. Patient is alert, oriented x 3, equal unlabored respirations, skin warm/dry/pink. 16:00 Reassessment: Attempted to call and give report nurse states is not ready and will call db back. 16:15 Reassessment: Notified Dr. Adams and dr. Du. Patient reports wanting to leave AMA. db Patient is concerned that he has not spoken to a physician and that he will not be taken care of. Spoke with patient and explained process to patient, orders and ordered plan, listened to patient concerns. 16:20 Reassessment: Dr. Adams is at patient bedside speaking with patient. db 16:32 Reassessment: Report given to JOSE DANIEL Franco 4th floor RN. db 16:33 Reassessment: Patient appears in no apparent distress at this time. Patient and/or db family updated on plan of care and expected duration. Pain level reassessed. Patient is alert, oriented x 3, equal unlabored respirations, skin warm/dry/pink. 16:33 Reassessment: Dr. Du is at patient bedside speaking with patient. db Vital Signs: 10:31 BP 171 / 62; Pulse 54; Resp 14; Temp 99(O); Pulse Ox 96% ; Weight 149.69 kg; Height 5 db ft. 11 in. ; 11:30 BP 134 / 58; Pulse 43; Resp 16 S; Pulse Ox 96% ; db 12:30 BP 139 / 54; Pulse 41; Resp 16; Pulse Ox 97% on R/A; db 13:30 BP 159 / 53; Pulse 43; Resp 16; Pulse Ox 97% on R/A; db 14:30 BP 148 / 63; Pulse 43; Resp 16; Pulse Ox 97% on R/A; db 15:30 BP 164 / 67; Pulse 46; Resp 16; Pulse Ox 99% on R/A; db 16:30 BP 178 / 72; Pulse 55; Resp 18; Pulse Ox 99% on R/A; db 10:31 Body Mass Index 46.03 (149.69 kg, 180.34 cm) db Vitals: 16:30 Cardiac Rhythm Assessment Sinus delaney. db ED Course: 10:19 Patient arrived in ED. im 10:24 Bob Adams DO is Attending Physician. ms3 10:36 Lidia Bai, JOSE DANIEL is Primary Nurse. db 10:44 Triage completed. iw 10:45 Arm band placed on. iw 10:52 Initial lab(s) drawn, by me, sent to lab. aw1 10:52 Inserted saline lock: 20 gauge in right antecubital area, using aseptic technique. aw1 11:00 XRAY Chest (1 view) In Process Unspecified. EDMS 12:22 Basim Du MD is Hospitalizing Provider. ms3 12:53 Patient has correct armband on for positive identification. Bed in low position. Call db light in reach. Side rails up X 1. Client placed on continuous cardiac and pulse oximetry monitoring. NIBP monitoring applied. Warm blanket given. 16:45 Provided Education on: ADMISSION PENDING, PLAN OF CARE, ADMISSION ORDERS AND ADMISSION db PROCESS. . 16:45 No provider procedures requiring assistance completed. Patient admitted, IV remains in db place. Patient maintains SpO2 saturation greater than 95% on room air. Administered Medications: No medications were administered Medication: 16:45 VIS not applicable for this client. db Outcome: 12:22 Decision to Hospitalize by Provider. ms3 16:45 Admitted to ER Hold. Please see [facility] for further documentation. db 16:45 Condition: stable 16:45 Instructed on the need for admit. 16:56 Patient left the ED. db Signatures: Dispatcher [employer] EDKami Dick, RN RN iw Bob Adams DO DO ms3 Lidia Bai RN RN db Julia Parada Alyssa aw1
[2023-06-24] MEDS ORDERED: ACETAMINOPHEN 500 MG TAB PO PRN (12:38)
[2023-06-24] MEDS ORDERED: MORPHINE 2 MG/ML SYR IV PRN (12:38)
[2023-06-24] MEDS ORDERED: ONDANSETRON 4 MG/2 ML VIAL IV PRN (12:38)
[2023-06-24] MEDS: NA CHLORIDE 0.9% 1,000 ML IV SCH (15:56)
[2023-06-24] MEDS ORDERED: NA CHLORIDE 0.9% 1,000 ML ONE (16:05)
[2023-06-24 17:37] VITALS: BMI 46.0
[2023-06-25] MEDS: NA CHLORIDE 0.9% 1,000 ML IV SCH ×2 (02:20→06:45)
[2023-06-25 03:51] LABS: Absolute Lymphocytes (CBC) 1.8 K/uL (0.7-4.9); Hematocrit 39.2 % (39.6-49.0); Lymphocytes % 20.6 % (15.3-44.8); MCV 87.6 fL (80-100); MPV 8.2 fL (7.6-11.3); Platelets 221 thou/uL (152-406); RBC Red Blood Cell Count 4.47 M/uL (4.33-5.43)
[2023-06-25 04:07] LABS: Albumin 3.2 g/dL (3.4-5.0); Bilirubin Total 0.4 mg/dL (0.2-1.0); Potassium 3.7 mEq/L (3.5-5.1); Protein, Total 6.3 g/dL (6.4-8.2)
[2023-06-25 04:33] LABS: Thyroid Stimulating Hormone 1.84 uIU/mL (0.358-3.740)
--- NOTE | 2023-06-25 06:25 | P.HP ---
Certification for Inpatient Patient admitted to: Observation With expected LOS: <2 Midnights Patient will require the following post-hospital care: None Practitioner: I am a practitioner with admitting privileges, knowledge of patient current condition, hospital course, and medical plan of care. Services: Services provided to patient in accordance with Admission requirements found in Title 42 Section 412.3 of the Code of Federal Regulations Patient History Date of Service: 06/24/23 Reason for admission: Bradycardia and near syncope History of Present Illness: Patient is a 78-year-old gentleman came to the hospital with bradyarrhythmia. Patient states his heart rate has been 30s to 40s. He has also been getting lightheaded. This has been going on for the last year and he actually had to stop his beta-davide therapy when his heart rate came down under the 60 range. However, even after stopping his beta-davide he states his heart rate keeps dropping into the 30s and 40s. He has seen Dr. Clark and had extensive workup done including echocardiogram and stress test which were unremarkable. He went out a 2nd opinion a few months later by another game technician that his daughter referred him to and he also had the same workup including chemical stress test and was told that everything was unremarkable. However, he continues to have symptoms of lightheadedness and his heart rate has apparently been dropping into the 30s and 40s in the emergency room. He states that he feels like he may have plaquing around his heart muscle even though his stress test are negative. He feels like this is contributing to his current condition and he is scared that he is going to have of myocardial infarction that will take his lytes. At this time, will admit him to the hospital will check thyroid studies and get a workup for bradycardia. Allergies No Known Allergies Allergy (Verified 06/24/23 17:05) Home Medications: Aspirin Chewable [Aspirin Chewable*] 1 tab PO DAILY 02/20/20 Candesartan/Hydrochlorothiazid [Atacand Hct 32-25 mg Tablet] 1 tab PO DAILY 02/20/20 Tamsulosin HCl [Flomax] 0.4 mg PO BID 04/18/23 - Past Medical/Surgical History Has patient received pneumonia vaccine in the past: Yes Diabetic: No -: Hypertension -: umbilical hernia repair 20yrs ago - Family History Mother Medical History: Cancer Father Medical History: Cancer Brother Medical History: Heart disease - Social History Smoking Status: Never smoker Alcohol use: No CD- Drugs: No Caffeine use: Yes Place of Residence: Home Review of Systems 10-point ROS is otherwise unremarkable Physical Examination - Vital Signs Temperature: 97.7 F Blood Pressure: 126/58 Pulse: 46 Respirations: 18 Pulse Ox (%): 96 - Physical Exam General: Alert, In no apparent distress, Oriented x3 HEENT: Atraumatic, PERRLA, Mucous membr. moist/pink, EOMI, Sclerae nonicteric Neck: Supple, 2+ carotid pulse no bruit, No LAD, Without JVD or thyroid abnormality Respiratory: Clear to auscultation bilaterally, Normal air movement Cardiovascular: Regular rate/rhythm, Normal S1 S2, No murmurs Gastrointestinal: Normal bowel sounds, Soft and benign, Non-distended, No tenderness Musculoskeletal: No clubbing, No swelling, No tenderness Integumentary: No rashes Neurological: Normal gait, Normal speech, Normal strength at 5/5 x4 extr, Normal tone, Sensation intact, Cranial nerves 3-12 intact, Normal reflexes 2+, Normal affect Lymphatics: No axilla or inguinal lymphadenopathy - Studies Laboratory Data (last 24 hrs) 06/24/23 10:46: WBC 7.90, Hgb 14.2, Hct 42.6, Plt Count 239 06/24/23 10:46: Sodium 139, Potassium 3.9, BUN 11, Creatinine 0.89, Glucose 89, Magnesium 2.3 Assessment & Plan - Problems (Diagnosis) (1) Near syncope Current Visit: Yes Status: Acute (2) Sinus bradycardia Current Visit: No Status: Acute - Plan 1. Serial troponins and EKG 2. Cardiology consultation 3. Echocardiogram and stress test have been twice this past year-no need to repat 4. Anti-platelet therapy and statin therapy 5. TSH, Free T4 6. Monitor on telemetry Discharge Plan: Home Plan to discharge in: Greater than 2 days - Advance Directives Does patient have a Living Will: No Does patient have a Durable POA for Healthcare: No - Code Status/Comfort Care Code Status Assessed: Yes Code Status: Full Code Critical Care: No Time Spent Managing PTS Care (In Minutes): 45
--- NOTE | 2023-06-25 06:26 | P.DS ---
Discharge Date: 06/25/23 Disposition: ROUTINE DISCHARGE Discharge Condition: GOOD Reason for Admission: Bradycardia and near syncope Consultations: cardiology - Problems (1) Near syncope Current Visit: Yes Status: Acute (2) Sinus bradycardia Current Visit: No Status: Acute Brief History of Present Illness: Patient is a 78-year-old gentleman came to the hospital with bradyarrhythmia. Patient states his heart rate has been 30s to 40s. He has also been getting lightheaded. This has been going on for the last year and he actually had to stop his beta-davide therapy when his heart rate came down under the 60 range. However, even after stopping his beta-davide he states his heart rate keeps dropping into the 30s and 40s. He has seen Dr. Clark and had extensive workup done including echocardiogram and stress test which were unremarkable. He went out a 2nd opinion a few months later by another assembly operator that his daughter referred him to and he also had the same workup including chemical stress test and was told that everything was unremarkable. However, he continues to have symptoms of lightheadedness and his heart rate has apparently been dropping into the 30s and 40s in the emergency room. He states that he feels like he may have plaquing around his heart muscle even though his stress test are negative. He feels like this is contributing to his current condition and he is scared that he is going to have of myocardial infarction that will take his lytes. At this time, will admit him to the hospital will check thyroid studies and get a workup for bradycardia. Hospital Course: Patient has done well during hospital stay. Clinically, patient is much better. At this time, patient is stable for discharge home. Patient will follow-up with consultants and PCP as an outpatient. Vital Signs/Physical Exam: Temp Pulse Resp BP Pulse Ox 97.7 F 46 L 18 126/58 L 96 06/25/23 06:25 06/25/23 06:25 06/25/23 06:25 06/25/23 06:25 06/25/23 06:25 General: Alert, In no apparent distress, Oriented x3 Laboratory Data at Discharge: WBC 8.70 thou/uL (4.3-10.9) 06/25/23 03:36 Hgb 13.2 g/dL (13.6-17.9) L 06/25/23 03:36 Hct 39.2 % (39.6-49.0) L 06/25/23 03:36 Plt Count 221 thou/uL (152-406) 06/25/23 03:36 Sodium 140 mEq/L (136-145) 06/25/23 03:36 Potassium 3.7 mEq/L (3.5-5.1) 06/25/23 03:36 BUN 15 mg/dL (7-18) 06/25/23 03:36 Creatinine 0.92 mg/dL (0.70-1.30) 06/25/23 03:36 Glucose 111 mg/dL (74-106) H 06/25/23 03:36 Magnesium 2.3 mg/dL (1.6-2.4) 06/24/23 10:46 Total Bilirubin 0.4 mg/dL (0.2-1.0) 06/25/23 03:36 AST 14 U/L (15-37) L 06/25/23 03:36 ALT 24 U/L (16-61) 06/25/23 03:36 Alkaline Phosphatase 80 U/L (45-117) 06/25/23 03:36 Triglycerides 134 mg/dL (<150) 06/25/23 03:36 Cholesterol 149 mg/dL (<200) 06/25/23 03:36 HDL Cholesterol 38 mg/dL (40-60) L 06/25/23 03:36 Cholesterol/HDL Ratio 3.92 06/25/23 03:36 Home Medications: Aspirin Chewable [Aspirin Chewable*] 1 tab PO DAILY 02/20/20 Candesartan/Hydrochlorothiazid [Atacand Hct 32-25 mg Tablet] 1 tab PO DAILY 02/20/20 Tamsulosin HCl [Flomax] 0.4 mg PO BID 04/18/23 Physician Discharge Instructions: OK TO DC IV AND DC HOME FOLLOW-UP WITH PRIMARY CARE PROVIDER IN 1-2 WEEKS FOLLOW-UP WITH CARDIOLOGY IN 1-2 WEEKS RETURN TO THE ER IF symptoms worsen CALL DR. PROCTOR AT [phone] IF ANY QUESTIONS REGARDING HOSPITAL STAY. PLEASE CALL THE FLOOR AT [phone] IF ANY MEDICATION OR NURSING QUESTIONS. Diet: AHA Activity: Fall precautions Followup: Michael San MD [Primary Care Provider] - Time spent managing pt's care (in minutes): 35
[2023-06-25] MEDS ORDERED: LEVOTHYROXINE SOD 0.05 MG TABLET PO SCH (06:30)
[2023-06-25] MEDS ORDERED: CYANOCOBALAMIN 1000MCG/ML INJ IM SCH (09:00)
[2023-06-25 12:48] LABS: Protime INR 1.08
[2023-06-25] MEDS ORDERED: HEPA 1000U/500MLS 2,000 UNIT/1,000 ML BAG IV ONE (13:19)
[2023-06-25] MEDS ORDERED: MIDAZOLAM HCL 2 MG/2 ML INJ ONE (13:20)
[2023-06-25] MEDS ORDERED: ASPIRIN 325 MG TAB ONE (13:20)
[2023-06-25] MEDS ORDERED: HEPARIN 5000 UNIT/ML 1 ML VIAL ONE (13:20)
[2023-06-25] MEDS ORDERED: CLOPIDOGREL 75 MG TABLET ONE (13:20)
[2023-06-25] MEDS ORDERED: FENTANYL CITR 100 MCG/2 ML ONE (13:20)
[2023-06-25] MEDS ORDERED: VERAPAMIL HCL 10 MG/4 ML VIAL IV ONE (13:20)
[2023-06-25] MEDS ORDERED: HEPARIN 10,000 UNIT/10 ML VIAL IV ONE (13:20)
[2023-06-25] MEDS ORDERED: ATROPINE SULF 1 MG/10 ML SYR IV ONE (13:21)
[2023-06-25] MEDS ORDERED: TICAGRELOR 90 MG TABLET PO ONE (13:21)
--- NOTE | 2023-06-25 13:28 | EKG ---
Test Date: 2023-06-24 Test Time: 10:40:22 Die Stamping Press Operator: NENITA MEASUREMENT RESULTS: Intervals: Rate: 52 OR: 168 QRSD: 108 QT: 428 QTc: 398 [place]: P: 63 OR: 168 QRS: 21 T: 53 INTERPRETIVE STATEMENTS: Sinus bradycardia with frequent premature ventricular complexes Low voltage QRS Borderline ECG Compared to ECG 06/24/2023 10:35:12 Low QRS voltage now present Electronically Signed On 06-25-23 13:27:01 CDT by Jt Stephens
--- NOTE | 2023-06-25 13:28 | EKG ---
Test Date: 2023-06-24 Test Time: 10:35:12 Lead Driver: NENITA MEASUREMENT RESULTS: Intervals: Rate: 56 MA: 160 QRSD: 110 QT: 438 QTc: 422 [place]: P: 48 MA: 160 QRS: 10 T: 6 INTERPRETIVE STATEMENTS: Sinus bradycardia with occasional premature ventricular complexes Otherwise normal ECG Compared to ECG 04/18/2023 11:45:46 Ventricular premature complex(es) now present Electronically Signed On 06-25-23 13:27:07 CDT by Jt Stephens
[2023-06-25 17:42] VITALS: BP 151/73; TEMP 98; O2SAT 96
--- NOTE | 2023-06-25 19:21 | CON ---
Date of Consultation: 06/25/2023 Reason For Consultation: Chest pain and near syncope. History Of Present Illness: A 78-year-old male with history of bradyarrhythmia, heart rate runs in t he 40s, has extensive workup except cardiac catheterization in the past and everything checked out ok ay. He has been feeling dizzy and having new syncopal episodes very frequently lately, and he has be en having chest pain, describes it as tightness in his left shoulder with activities. Past Medical History: Hypertension. Medications: Refer to reconciliation sheet for detailed list. Allergies: NO KNOWN DRUG ALLERGIES. Family History: No mention of coronary artery disease or cancer. Social History: Does not smoke or drink. Does not use any drugs. Review of Systems: All systems reviewed are negative except mentioned in HPI. Physical Examination: Vital Signs: Reviewed. Head and Neck: Pupils are equal, reactive to light. Intact eye movements. No JVD. No cervical lym phadenopathy. Neck: Supple. Thyroid is not enlarged. Lungs: Clear to auscultation bilaterally. No rhonchi, rales, or crackles. No accessory muscle use. Heart: Regular rate and rhythm. No extra sounds. Abdomen: Soft, nontender. Bowel sounds positive. No organomegaly. No masses or hernia. No rigidi ty or rebound. Extremities: No edema, clubbing, or cyanosis. Intact pulses. Skin: No rashes. Neurologic: Alert, awake, oriented x3. No acute focal deficits appreciated. Investigations: BUN 15, creatinine 0.92. Troponins are negative and hemoglobin is 13.2. Assessment/recommendation: 1.Sinus bradycardia with active chest pain. Plan for coronary angiogram today. 2.Chest pain. Typical symptoms of exertional chest pain radiates to shoulder. Obtain coronary reynold ogram to further evaluate. 3.Bradycardia, now it is sinus and I will plan on a 1 week Holter monitor on him as an outpatient. If it show that there is evidence of sick sinus syndrome, then we will plan for pacemaker implantatio nBarrie KAUR/UBALDO Voice ID: [id number] Report ID: [id number]
--- NOTE | 2023-06-26 01:17 | OP ---
Date of Procedure: 06/25/2023 Surgeon: DANNIE PARDO Procedure Performed: Selective coronary angiogram. Indication: Unstable angina. Access: Radial artery 6-Syrian closed with TR band. Complications: None. Bleeding: Less than 20 mL. Total Sedation Time: 20 minutes. Description Of Procedure: After risks, benefits, and alternatives were explained, patient agreed to proceed and signed informed consent. Patient was brought into the cardiac catheterization laboratory , prepped and draped in sterile fashion. Then, accessed right radial artery using pediatric micropun cture kit and placed 6-Syrian slender sheath and took 5-Syrian [place] 4.0 catheter into the aortic melva t, engaged left main and then the right coronary artery, took standard views and removed the catheter and then the sheath. A TR band was placed with good hemostasis. Findings: 1.Left main is normal. 2.LAD: Very large vessel with proximal diffuse 80%, then mid focal 90% and after diagonal 2 branch is focal 70% and then luminal irregularities. The diagonal branch has proximal 80% stenosis. 3.Left circumflex is very large and codominant with proximal 60-70 percent, mid 80% right before the bifurcation, it is codominant circulation and then the circ has 60 to 70% focal lesion in the distal segment. 4.RCA, large and codominant proximal 20% stenosis and the luminal irregularities and then the PLV hinojosa s diffuse 60% to 70% stenosis. Conclusion: Severe multivessel coronary artery disease. Recommendation: Evaluation by CT surgery for CABG. /JODYL Voice ID: [id number] Report ID: [id number]
== END 2023-06-25 18:56 | disposition home or self-care (01) ==
LOC: ER 10:17 → ERHOLD 12:39 → 4TH 16:42
PROVIDERS: ADMIT Hospitalist; ATTEND Hospitalist
PROC: B2111ZZ Fluoroscopy of Multiple Coronary Arteries using Low Osmolar Contrast (ICD-10-PCS; principal; 2023-06-24)
DX: I25.110 Atherosclerotic heart disease of native coronary artery with unstable angina pectoris (principal); R00.1 Bradycardia, unspecified; I10 Essential (primary) hypertension; M62.81 Muscle weakness (generalized); Z82.49 Family history of ischemic heart disease and other diseases of the circulatory system; Z80.9 Family history of malignant neoplasm, unspecified
CPT/HCPCS: 93005 ×2; 85025 ×2; 80048; 36415; 83735; 85610; 80061; 85730; 84443; 84484 ×3; 84439; 82607; 80053; 82533; 71045; 93454; 76937; 99285; C1893; Q9967; J3420; J1644; J2250; J3010; J7030 ×2; J0461

== ENCOUNTER 2024-03-16 20:47 | Emergency (ER) | payer OTHER, MEDICARE ==
--- OUTSIDE RECORDS SUMMARY | 2024-03-16 20:50 | XMS REPORT | Clinical Summary ---
Author Name Unknown Organization [facility] Address [address] [place] [address] Care Team Providers Care Manager Data Name Role Phone Domingo Preston APRN Primary Care Provider Allergies No known active allergies Medications Medication Sig Dispensed Refills Start Date End Date Status candesartan-hydroc hlorothiazide (ATACAND HCT) 32-12.5 mg per tablet Take 1 tablet by mouth daily. 0 11/29/2009 Active aspirin 81 mg chewable tablet Chew 1 tablet (81 mg) daily. 0 Active rosuvastatin (CRESTOR) 5 mg tablet 1 tablet (5 mg). 0 10/07/2023 Active ciprofloxacin HCl (CIPRO) 500 mg tablet Take 1 tablet (500 mg) by mouth daily. 0 02/24/2022 11/09/2023 Discontinued Encounters Date Type Department Care Team Description 11/09/2023 3:00 PM QUALITY TECHNICIAN [facility] Telemedicine [facility] [address] [facility]th [place] [address] Kalen Mota MD Cotta, Brittney H, MD Renal mass (Primary Dx) 11/08/2023 12:05 PM QUALITY TECHNICIAN [employer] Ancillary Procedure MD [facility] [address] [address] Kalen Mota MD Renal mass after 03/17/2023 Surgical History Surgery Date Site/Laterality Comments UMBILICAL HERNIA REPAIR Medical History Medical History Date Comments Hypertension Family History Medical History Relation Name Comments Melanoma Brother Brain cancer Father Breast cancer Mother Pancreatic cancer Sister Relation Name Status Comments Brother Father Mother Sister Social History Tobacco Use Types Packs/Day Years Used Date Smoking Tobacco: Former Sex and Gender Information Value Date Recorded Sex Assigned at Male 04/28/2020 5:15 PM CDT Gender Identity Not on file Sexual Orientation Not on file Job Start Date Occupation Industry Not on file Not on file Not on file Obstetrics History Last Filed Vital Signs Vital Sign Reading Time Taken Comments Blood Pressure 178/83 11/08/2023 1:39 PM QUALITY TECHNICIAN [employer] Pulse 52 11/08/2023 1:39 PM QUALITY TECHNICIAN [employer] Temperature - - Respiratory Rate 18 11/08/2023 1:39 PM QUALITY TECHNICIAN [employer] Oxygen Saturation - - Inhaled Oxygen Concentration - - Weight 137.5 kg (303 lb 2.1 oz) 023 10:59 AM QUALITY TECHNICIAN [employer] Height 179 cm (5' 10.47") 11/08/2023 10 :59 AM QUALITY TECHNICIAN [employer] Body Mass Index 42.91 11/08/2023 10:59 AM QUALITY TECHNICIAN [employer] Plan of Treatment Upcoming Encounters Date Type Department Care Team Description 11/05/2025 11:00 AM QUALITY TECHNICIAN [facility] Appointment [facility] [address] [place] [id number] Emmy Carter MD [address] [place] [id number] 11/05/2025 11:45 AM QUALITY TECHNICIAN [employer] Ancillary Procedure [facility] [address] [place] [address] Emmy Carter MD [address] [place] [id number] 11/05/2025 12:30 PM QUALITY TECHNICIAN [employer] Ancillary Procedure CT Imaging [address] [place] [address] Emmy Carter MD [address] [place] [id number] 11/06/2025 2:30 PM QUALITY TECHNICIAN [facility] Telemedicine [facility] [address] [place] [address], [address] [place] [id number] Emmy Carter MD [address] [place], [place] [id number] Health Maintenance Due Date Last Done Comments COVID-19 Vaccine (2022-2 4 season) 2023 07/21/2022, 08/27/2021, 02/12/2021, Additional history exists Influenza Vaccine 07/30/2023 Procedures Procedure Name Priority Date/Time Associated Diagnosis Comments CT ABDOMEN W WO CONTRAST Routine 11/08/2023 1:35 PM QUALITY TECHNICIAN [employer] Renal mass .CBC Routine 11/08/2023 10:46 AM QUALITY TECHNICIAN [employer] Renal mass COMPREHENSIVE METABOLIC PANEL Routine 11/08/2023 10:46 AM QUALITY TECHNICIAN [employer] Renal mass COMPLETE BLOOD COUNT W/ DIFFERENTIAL Routine 11/08/2023 10:46 AM QUALITY TECHNICIAN [employer] Renal mass after 03/17/2023 Results * CT Abdomen with and without Contrast (11/08/2023 1:35 PM QUALITY TECHNICIAN [employer]) Anatomical Region Laterality Modality Abdomen Computed Tomogra phy 11/09/2023 9:26 AM QUALITY TECHNICIAN [employer] Impressions 11/09/2023 10:12 AM QUALITY TECHNICIAN [employer] Subcentimeter lesion in the left kidney with calcification is stable. Other findings in the left kidney are stable. ACTIONABLE ITEMS/RECOMMENDATIONS: None. Narrative 11/09/2023 10:12 AM QUALITY TECHNICIAN [employer] FULL RESULT: Examination: CT ABDOMEN W WO CONTRAST on 11/08/2023 1:35 PM. Clinical History: Renal mass Indication: 2.5 cm right renal cyst on active surveillance Comparison: CT scan from 11/10/2022. Technique: CT ABDOMEN W WO CONTRAST. FINDINGS: Lower Thorax: No suspicious pulmonary nodules in the lung bases. Hepatobiliary: No suspicious hepatic lesion. No biliary dilatation. 2 gallstones are noted. Spleen: No cholecystitis Pancreas: No mass or ductal dilatation. Adrenal Glands: No mass. Kidneys: There is no 1 cm lesion in the interpolar region of the left kidney on image 123 of series 6 with foci of calcification (series 3, image 75) is stable since multiple prior examinations dated back to October 2020. This is likely benign/complex cyst Exophytic cyst in the left kidney on image 270 of series 7 measuring 2.7 cm, cortical cyst measuring 1 cm on image 236 and upper pole cyst on image 210 measuring 1.4 cm are stable. The right kidney shows a few small punctate low-attenuation foci, compatible with cysts, stable no hydronephrosis. Gastrointestinal Tract: No obstruction. Peritoneum/Retroperitoneum: No ascites. Lymph Nodes: No lymphadenopathy. Musculoskeletal: No suspicious skeletal lesion. Procedure Note Sedrick Cool MD - 11/09/2023 FULL RESULT: Examination: CT ABDOMEN W WO CONTRAST on 11/08/2023 1:35 PM. Clinical History: Renal mass Indication: 2.5 cm right renal cyst on active surveillance Comparison: CT scan from 11/10/2022. Technique: CT ABDOMEN W WO CONTRAST. FINDINGS: Lower Thorax: No suspicious pulmonary nodules in the lung bases. Hepatobiliary: No suspicious hepatic lesion. No biliary dilatation. 2gallstones are noted. Spleen: No cholecystitis Pancreas: No mass or ductal dilatation. Adrenal Glands: No mass. Kidneys: There is no 1 cm lesion in the interpolar region of the leftkidney on image 123 of series 6 with foci of calcification (series 3,image 75) is stable since multiple prior examinations dated back toOctober 2020. This is likely benign/complex cyst Exophytic cyst in the left kidney on image 270 of series 7 measuring 2.7cm, cortical cyst measuring 1 cm on image 236 and upper pole cyst on [id number] measuring 1.4 cm are stable. The right kidney shows a few small punctate low-attenuation foci,compatible with cysts, stable no hydronephrosis. Gastrointestinal Tract: No obstruction. Peritoneum/Retroperitoneum: No ascites. Lymph Nodes: No lymphadenopathy. Musculoskeletal: No suspicious skeletal lesion. IMPRESSION: Subcentimeter lesion in the left kidney with calcification is stable.Other findings in the left kidney are stable. ACTIONABLE ITEMS/RECOMMENDATIONS: None. Kalen Mota MD IM CT ORDERABLES * .CBC (11/08/2023 10:46 AM QUALITY TECHNICIAN [employer]) White Blood Cell 8.6 4.1 - 10.5 K/uL 11/08/2023 10:58 AM [facility] Red Blood Cell 5.00 4.30 - 6.04 M/uL 11/08/2023 10:58 AM [facility] Hemoglobin 14.6 13.3 - 17.4 g/dL 11/08/2023 10:58 AM [facility] Hematocrit 44.9 39.5 - 51.8 % 11/08/2023 10:58 AM [facility] Mean Cell Volume 90 82 - 99 fL 11/08/20 10:58 AM [facility] Mean Cell Hemoglobin 29.2 26.6 - 33.2 pg 11/08/2023 10:58 AM [facility] Mean Cell Hemoglobin Concentration 32.5 31.1 - 35.2 g/dL 11/08/2023 10:58 AM [facility] RDW-SD 42.4 37.5 - 49.7 fL 11/08/2023 10:58 AM [facility] Red Cell Diameter Width 12.6 11.6 - 15.5 % 11/08/2023 10:58 AM [facility] Platelet 233 160 - 397 K/uL 11/08/2023 10:58 AM [facility] Mean Platelet Volume 9.7 9.1 - 12.6 fL 11/08/2023 10:58 AM [facility] Neutrophil % 66.1 43.2 - 72.7 % 11/08/2023 10:58 AM [facility] Lymphocyte % 20.6 16.8 - 46.2 % 11/08/2023 10:58 AM [facility] Monocyte % 9.8 5.1 - 12.5 % 11/08/2023 10:58 AM [facility] Eosinophil % 2.6 0.4 - 6.3 % 11/08/2023 10:58 AM [facility] Basophil % 0.7 0.2 - 1.4 % 11/08/2023 10:58 AM [facility] IGRE % 0.2 0.1 - 1.5 % 11/08/2023 10:58 AM [facility] Comment:The IGRE% includes M etamyelocytes, Myelocytes and Promyelocytes. Neutrophil Abs 5.70 1.95 - 7.25 K/uL 11/08/2023 10:58 AM [facility] Lymphocyte Abs 1.77 1.01 - 3.24 K/uL 11/08/2023 10:58 AM [facility] Monocyte Abs 0.84 0.24 - 0.85 K/uL 11/08/2023 10:58 AM [facility] Eosinophil Abs 0.22 0.02 - 0.50 K/uL 11/08/2023 10:58 AM [facility] Basophil Abs 0.06 0.02 - 0.09 K/uL 11/08/2023 10:58 AM [facility] IG Abs 0.02 0.01 - 0.12 K/uL 11/08/2023 10:58 AM [facility] Blood Venipuncture / Unknown 11/08/2023 10:46 AM QUALITY TECHNICIAN [employer] 11/08/2023 10:47 AM QUALITY TECHNICIAN [employer] Kalen Mota MD LAB BLOOD ORDERAB LES Performing Organization Address City/State/[facility] Co de Phone Number [facility] [address] [facility], [facility] [address] [place] [address] * (ABNORMAL) Comprehensive Metabolic Panel (11/08/2023 10:46 AM QUALITY TECHNICIAN [employer]) Bilirubin Total 0.5 <=1.2 mg/dL 11/08/2023 11:22 AM [facility] Comment: Indocyanine Green (ICG) may cause falsely elevated bilirubin results. Total and direct bilirubin must not be measured from samples containing indocyanine green. False elevation of total bilirubin can be seen in patients with IgG concentrations above 28 g/L. This result was previously suppressed from the chart. Bilirubin Direct <0.2 <=0.3 mg/dL 11/08/2023 11:22 AM [facility] Comment: Indocyanine Green (ICG) may cause falsely elevated bilirubin results. Total and direct bilirubin must not be measured from samples containing indocyanine green. This result was previously suppressed from the chart. Bilirubin Indirect 2022 11:22 AM [facility] Comment:Unable to calculate Indirect Bilirubin result due to some parameters are outside reportable range eGFR 91 >=60 mL/min/1. 73 sq. m 11/08/2023 11:22 AM [facility] Comment: The eGFRcr is calculated with the 2020 CKD-EPI creatinine equation using creatinine, patient's age, and sex for adults 18 years of age and older. Other factors, especially muscle mass, may affect accuracy and need to be considered. According to the Kidney Disease: Improving Global Outcomes (KDIGO) CKD Work Group 2012 Clinical Practice Guideline, chronic kidney disease (CKD) is defined as the abnormalities of kidney structure or function, present for more than 3 months, with implications for health. CKD should be classified by cause, GFR category, and albuminuria category. KDIGO guidelines provide the following GFR categories. Stage / Description / GFR mL/min/1.73 m2: G1* / Normal or high / >= 90 G2* / Mildly decreased / 60-89 G3a / Mildly to moderately decreased / 45-59 G3b / Moderately to severely decreased / 30-44 G4 / Severely decreased / 15-29 G5 / Kidney failure / <15 *In the absence of evidence of kidney damage, neither G1 nor G2 fulfill criteria for CKD. Tot Protein 7.4 6.4 - 8.3 gm/dL 11/08/2023 11:22 AM [facility] Comment:This result was prev iously suppressed from the chart. Calcium Level Total 9.3 8.2 - 10.2 mg/dL 11/08/2023 11:22 AM [facility] Comment:This result was prev iously suppressed from the chart. Alkaline Phosphatase 94 40 - 129 U/L 11/08/2023 11:22 AM [facility] Comment:This result was prev iously suppressed from the chart. Albumin Level 4.4 3.5 - 5.2 gm/dL 11/08/2023 11:22 AM [facility] Comment:This result was prev iously suppressed from the chart. AST 15 <=40 U/L 11/08/2023 11:22 AM [facility] Comment:This result was prev iously suppressed from the chart. ALT 16 <=41 U/L 11/08/2023 11:22 AM [facility] Comment:This result was prev iously suppressed from the chart. Sodium Level 139 136 - 145 mmol/L 11/08/2023 11:22 AM [facility] Comment:This result was prev iously suppressed from the chart. Potassium Level 3.9 3.4 - 4.5 mmol/L 11/08/2023 11:22 AM [facility] Comment:This result was prev iously suppressed from the chart. Chloride 103 98 - 107 mmol/L 11/08/2023 11:22 AM [facility] Comment:This result was prev iously suppressed from the chart. CO2 24 22 - 29 mmol/L 11/08/2023 11:22 AM [facility] Comment:This result was prev iously suppressed from the chart. Anion Gap 12 4 - 14 mmol/L 11/08/2023 11:22 AM [facility] Comment:This result was prev iously suppressed from the chart. Creatinine 0.79 0.67 - 1.17 mg/dL 11/08/2023 11:22 AM [facility] Comment:This result was prev iously suppressed from the chart. BUN 16 6 - 23 mg/dL 11/08/2023 11:22 AM [facility] Comment:This result was prev iously suppressed from the chart. Glucose Level 107(H) 70 - 99 mg/dL 11/08/2023 11:22 AM [facility] Comment: Effective 06/24/16, the glucose reference intervals have been updated based on [place] Diabetes [employer] guidelines (Standards of Medical Care in Diabetes 2016. Diabetes Care 2016; 39: S13-S22). Fasting blood glucose: Normal: 70-99 mg/dL Impaired fasting glucose (increased risk for diabetes or pre-diabetes): 100-125 mg/dL Diabetes mellitus: >/=126 mg/dL Random blood glucose: Normal: 70-199 mg/dL Note: Random glucose >100 mg/dL is associated with increased risk for diabetes. This result was previously suppressed from the chart. Blood Venipuncture / Unknown 11/08/2023 10:46 AM QUALITY TECHNICIAN [employer] 11/08/2023 10:47 AM [facility] Kalen Mota MD LAB BLOOD ORDERAB LES [facility] [address] [facility], [facility] [address] [place] [address] after 03/17/2023 Care Teams Manager Data Relationship Specialty Start Date End Date Domingo Preston APRN [address] [place], [place] [phone] PCP - General 03/24/22
[2024-03-16 21:23] LABS: Absolute Eosinophils 0.1 K/uL (0-0.5); Absolute Lymphocytes (CBC) 0.3 K/uL (0.7-4.9); Absolute Monocytes 0.8 K/uL (0.1-1.3); Absolute Neutrophil 7.2 K/uL (1.8-8.0); Basophils % 0.4 % (0-1.3); Eosinophils % 0.6 % (0-4.4); Hematocrit 39.9 % (39.6-49.0); Hemoglobin 13.3 g/dL (13.6-17.9); Lymphocytes % 3.8 % (15.3-44.8); MCH 29.7 pg (27.0-35.0); MCHC 33.5 g/dL (32.0-36.0); MCV 88.7 fL (80-100); MPV 7.3 fL (7.6-11.3); Monocytes % 9.7 % (3.3-12.3); Neutrophils % 85.5 % (41.7-73.7); Platelets 195 thou/uL (152-406); RBC Red Blood Cell Count 4.49 M/uL (4.33-5.43); Red Cell Distribution Width 13.7 % (12.1-15.2)
[2024-03-16 21:48] LABS: Anion Gap 7.8 mEq/L (5.0-15.0); Potassium 3.8 mEq/L (3.5-5.1)
--- NOTE | 2024-03-16 21:53 | ER ---
Nurse's Notes [facility] Name: Evens Freitas Sr Age: 78 yrs Sex: Male : 1945 Arrival Date: 03/16/2024 Time: 20:47 Bed 6 Private MD: Diagnosis: Concerned About Low Blood Sugar Presentation: 03/16 20:51 Chief complaint: Patient states: I have been having SOB and body chills since ha1 yesterday. Also, today I check my sugar and it was 21. 20:51 Method Of Arrival: Wheelchair ha1 20:51 Coronavirus screen: Vaccine status: Patient reports receiving the 2nd dose of the covid ha1 vaccine. Vidimax complete doses. Ebola Screen: No symptoms or risks identified at this time. Initial Sepsis Screen: Does the patient meet any 2 criteria? No. Patient's initial sepsis screen is negative. Does the patient have a suspected source of infection? No. Patient's initial sepsis screen is negative. Risk Assessment: Do you want to hurt yourself or someone else? Patient reports no desire to harm self or others. Onset of symptoms was March 15, 2024. 20:51 Acuity: REKHA 3 ha1 Triage Assessment: 20:51 General: Appears comfortable, obese, well groomed, Behavior is calm, cooperative. Pain: ha1 Denies pain. Neuro: Level of Consciousness is awake, alert, obeys commands, Oriented to person, place, time, situation. Cardiovascular: Reports shortness of breath, Denies chest pain, Patient's skin is warm and dry. Respiratory: Reports shortness of breath on exertion Airway is patent Respiratory effort is even, unlabored, Respiratory pattern is regular, symmetrical, Onset: The symptoms/episode began/occurred yesterday, the patient has mild shortness of breath. GI: No signs and/or symptoms were reported involving the gastrointestinal system. Abdomen is round obese. Derm: Skin is pink, warm \T\ dry. normal. Historical: - Allergies: 21:09 No Known Allergies; ha1 - Home Meds: 21:09 aspirin 81 mg Oral chew 1 tab once daily [Active]; candesartan 32 mg Oral tab [Active]; ha1 - PMHx: 21:09 Hypertensive disorder; ha1 - PSHx: 21:09 hernia repair; ha1 - Immunization history:: Adult Immunizations up to date. - Infectious Disease History:: Denies. - Social history:: Smoking status: Patient/guardian denies using tobacco, the patient reports quitting approximately 5 years ago, Patient/guardian denies using. Screenin:14 [facility] ED Fall Risk Assessment (Adult) History of falling in the last 3 months, ha1 including since admission No falls in past 3 months (0 pts) Confusion or Disorientation No (0 pts) Intoxicated or Sedated No (0 pts) Impaired Gait No (0 pts) Mobility Assist Device Used No (0 pt) Altered Elimination No (0 pt) Score/Fall Risk Level 0 - 2 = Low Risk. Abuse screen: Denies threats or abuse. Denies injuries from another. Nutritional screening: No deficits noted. Tuberculosis screening: No symptoms or risk factors identified. Assessment: 20:51 General: see triage assessment. ha1 22:06 Reassessment: Patient and/or family updated on plan of care and expected duration. Pain ha1 level reassessed. Patient is alert, oriented x 3, equal unlabored respirations, skin warm/dry/pink. Patient denies pain at this time. Patient states feeling better. Patient states symptoms have improved. Cardiovascular: Rhythm is sinus bradycardia. Respiratory: Airway is patent Respiratory effort is even, unlabored, Respiratory pattern is regular, symmetrical, Breath sounds are clear bilaterally. Vital Signs: 20:51 BP 166 / 66; Pulse 62; Resp 20; Temp 100; Pulse Ox 94% ; Weight 140.61 kg; Height 5 ft. ha1 11 in. ; Pain 0/10; 22:07 BP 136 / 51; Pulse 56; Resp 18; Temp 98.4; Pulse Ox 96% ; Pain 0/10; ha1 20:51 Body Mass Index 43.24 (140.61 kg, 180.34 cm) ha1 20:51 Pain Scale: Adult ha1 22:07 Pain Scale: Adult ha1 ED Course: 20:48 Patient arrived in ED. ra3 20:48 Adolph Sofia MD is Attending Physician. ec2 20:51 Arm band placed on right wrist. ha1 20:51 EKG completed in triage. Results shown to MD. ha1 20:51 Patient has correct armband on for positive identification. Placed in gown. Bed in low ha1 position. Call light in reach. Side rails up X2. Adult w/ patient. 21:00 Inserted saline lock: 20 gauge in right antecubital area, using aseptic technique. ha1 Blood collected. : Triage completed. ha1 : BMP Sent. ha1 : CBC with Diff Sent. ha1 22:08 No provider procedures requiring assistance completed. ha1 22: IV discontinued, intact, bleeding controlled, No redness/swelling at site. Pressure ha1 dressing applied. 22:10 Provided Education on: follow up with pcp . ha1 Administered Medications: No medications were administered Medication: 22: VIS not applicable for this client. ha1 Outcome: :52 Discharge ordered by . ec2 22: Discharged to home ambulatory, with family, ha1 : Condition: stable : Discharge instructions given to patient, family, Instructed on discharge instructions, follow up and referral plans. Demonstrated understanding of instructions, follow-up care, 22:11 Patient left the ED. ha1 Signatures: Rizwana To RN RN ha1 Adolph Sofia MD MD 2 Koki Aguilar 3
--- NOTE | 2024-03-16 21:53 | EDPHYS ---
Physician Documentation [facility] Name: Evens Freitas Sr Age: 78 yrs Sex: Male : 1945 Arrival Date: 03/16/2024 Time: 20:47 Bed 6 Private MD: ED Physician Adolph Sofia HPI: 03/16 21:12 This 78 yrs old Male presents to ER via Wheelchair with complaints of concern ec2 for Low Blood Sugar. 21:12 Patient arrives today for evaluation of possible low blood sugar. States that he was ec2 awake and alert, felt jittery and checked his blood sugar was noted to be 21. States that he was conscious, and subsequently checked sugar again in 30 minutes and was noted to be in 180. Patient reports no fevers or chills, nausea or vomiting, no cough or cold symptoms. Denies any other concerns.. Historical: - Allergies: 21:09 No Known Allergies; ha1 - Home Meds: 21:09 aspirin 81 mg Oral chew 1 tab once daily [Active]; candesartan 32 mg Oral tab [Active]; ha1 - PMHx: 21:09 Hypertensive disorder; ha1 - PSHx: 21:09 hernia repair; ha1 - Immunization history:: Adult Immunizations up to date. - Infectious Disease History:: Denies. - Social history:: Smoking status: Patient/guardian denies using tobacco, the patient reports quitting approximately 5 years ago, Patient/guardian denies using. ROS: 21:12 Constitutional: as per hpi ec2 Exam: 21:12 Constitutional: GEN: NAD Head: atraumatic Eyes: EOMI Ears: External ears are ec2 normal. CV: regular rate LUNGS: no respiratory distress ABD: non-distended SKIN: no evidence of rashes MSK: no evidence of trauma NEURO: moves all extremities equally Vital Signs: 20:51 BP 166 / 66; Pulse 62; Resp 20; Temp 100; Pulse Ox 94% ; Weight 140.61 kg; Height 5 ft. ha1 11 in. ; Pain 0/10; 22:07 BP 136 / 51; Pulse 56; Resp 18; Temp 98.4; Pulse Ox 96% ; Pain 0/10; ha1 20:51 Body Mass Index 43.24 (140.61 kg, 180.34 cm) ha1 20:51 Pain Scale: Adult ha1 22:07 Pain Scale: Adult ha1 MDM: 21:01 Patient medically screened. ec2 21:12 Data reviewed: vital signs. ED course: Patient arrives today due to concern for low ec2 blood sugar. Examination remarkable for well-appearing nontoxic dividual with reassuring vital signs who is well-appearing in no acute distress. Will obtain basic lab work to evaluate for renal dysfunction as well as sugar abnormalities. Will evaluate for electrolyte disturbances.. 21:22 ED course: EKG independently reviewed and interpreted by me, shows normal sinus rhythm, ec2 rate of 59, no acute ST segment elevations, nonconcerning intervals.. 21:52 ED course: CBC reassuring, metabolic profile shows appropriate electrolytes and sugar ec2 level. Will discharge home. Instructed follow-up primary care doctor. No evidence of hypoglycemia here in the emergency department. . 03/16 21:06 Order name: CBC with Diff; Complete Time: 21:52 ec2 03/16 21:06 Order name: BMP; Complete Time: 21:52 ec2 03/16 21:09 Order name: Glucose, Ancillary Testing; Complete Time: 21:52 EDMS 03/16 21:06 Order name: EKG - Nurse/Tech; Complete Time: 21:22 ec2 Administered Medications: No medications were administered Disposition Summary: 03/16/24 21:52 Discharge Ordered Notes: Location: Home ec2 Condition: Stable ec2 Diagnosis - Concerned About Low Blood Sugar ec2 Followup: ec2 - With: Private Physician - When: - Reason: Re-evaluation by your physician Discharge Instructions: - Discharge Summary Sheet ec2 - Hypoglycemia, [id number] ec2 Forms: - Medication Reconciliation Form ec2 - Thank You Letter ec2 - Antibiotic Education ec2 - Prescription Opioid Use ec2 - Patient Portal Instructions ec2 - Leadership Thank You Letter ec2 Signatures: Dispatcher [employer] Rizwana Stone RN RN 1 Adolph Sofia MD MD ec2
[2024-03-17 10:01] VITALS: BP 136/51; TEMP 98.4; O2SAT 96
== END 2024-03-16 22:11 | disposition home or self-care (01) ==
LOC: ER 20:47
DX: Z71.1 Person with feared health complaint in whom no diagnosis is made (principal); I10 Essential (primary) hypertension; Z79.82 Long term (current) use of aspirin
CPT/HCPCS: 36415; 80048; 82947; 85025; 93005; 99284